=== PATIENT | male | born 1930 | race Caucasian/White ===

== ENCOUNTER 2017-02-12 20:38 | Inpatient (IN) | payer MEDICARE, OTHER ==
[~2017-02-12] VITALS: Ht 182.9 cm; Wt 108.2 kg
[~2017-02-12 20:38] MED LIST: ASPI-147 PO; BUDE1SUS9 EACH NARE; CETI10 PO; CITA10TA4 PO; FINA5TAB2 PO; METO50TA PO; OMEP40CA2 PO; TAMS0.4C4 PO; VITA100018 PO; VITACAP9 PO; VYTO10TA9 PO
[2017-02-12 20:48] VITALS: BP 164/72; PULSE 92; RESP 16; TEMP 99.1; O2SAT 90
--- NOTE | 2017-02-12 21:04 | PD ---
HPI Chief Complaint: Fall Time Seen by Provider: 20:56 Travel History International Travel<30 days: No Contact w/Intl Traveler<30days: No Traveled to known affect area: No History of Present Illness HPI 86-year-old male presents to the emergency department by EMS transport from [facility] emergency department in transfer of care for neurosurgical admission due to subarachnoid hemorrhage. Patient is able to report his own history he states that he was walking in from outside after being in the swimming pool with bare feet were wet and when he stepped onto the tile floor inside his home he slipped backwards hitting the back of his head on the floor. Patient denies having any loss of consciousness. Patient was stated he was immediately stunned however. Patient did have an episode of vomiting after the fall. Patient also had additional episodes of emesis en route to the hospital. Patient was identified by CT brain noncontrast reading per Dr. eden lobe subarachnoid hemorrhage. The patient's case was discussed with neurosurgery on- call by managing physician Dr. gonzalez and patient was placed on nicardipine. Patient reports that he does take enteric-coated aspirin daily. PFSH Past Medical History Narrative Medical Hypertension dyslipidemia CAD with stent appendectomy tonsillectomy; alcohol use ; nursing notes reviewed Hx Anticoagulant Therapy: Yes Depression: Yes Cardiovascular Problems: Yes (HTN; STENT) High Cholesterol: Yes Diminished Hearing: No GERD: Yes Hypertension: Yes Past Surgical History Appendectomy: Yes Coronary Stent: Yes Tonsillectomy: Yes Social History Alcohol Use: Yes (SOCIALLY) Tobacco Use: No (FORMER) Substance Use: No Allergies-Medications (Allergen,Severity, Reaction): Coded Allergies: Codeine (Verified Adverse Reaction, Intermediate, NAUSEA AND VOMITING, ) Reported Meds & Prescriptions Reported Meds & Active Scripts Active Reported Finasteride 5 Mg Tab 5 Mg PO DAILY Do not crush. Tamsulosin (Tamsulosin HCl) 0.4 Mg Cap 0.4 Mg PO DAILY Vitamin B Complex-C (B Complex W/ C) 1 Cap Cap 1 Cap PO DAILY Rhinocort Allergy Nasal [place] (Budesonide Nasal [place]) 32 Mcg/Act Susp 2 [place] EACH NARE DAILY Vitamin D3 (Cholecalciferol) 1,000 Unit Tab 1,000 Units PO DAILY Citalopram (Citalopram Hydrobromide) 10 Mg Tab 10 Mg PO HS Omeprazole 40 Mg Cap 40 Mg PO DAILY Vytorin (Ezetimibe-Simvastatin) 10-40 Mg Tab 1 Tab PO HS Ecotrin Low Strength (Aspirin) 81 Mg Tabdr 81 Mg PO DAILY Cetirizine (Cetirizine HCl) 10 Mg Tab 10 Mg PO DAILY Metoprolol Tartrate 50 Mg Tab 50 Mg PO DAILY Review of Systems Except as stated in HPI: all other systems reviewed are Neg Physical Exam Narrative GENERAL: Well-developed well-nourished male in no acute distress no respiratory distress; GCS 15 SKIN: Warm and dry. HEAD: Atraumatic. Normocephalic except for small area right posterior occiput soft tissue swelling tender to palpation. EYES: Pupils equal and round. No scleral icterus. No injection or drainage. ENT: No nasal bleeding or discharge. Mucous membranes pink and moist. NECK: Trachea midline. No JVD. No midline tenderness to direct palpation along the cervical spine CARDIOVASCULAR: Regular rate and rhythm. RESPIRATORY: No accessory muscle use. Clear to auscultation. Breath sounds equal bilaterally. GASTROINTESTINAL: Abdomen soft, non-tender, nondistended. Hepatic and splenic margins not palpable. MUSCULOSKELETAL: Extremities without clubbing, cyanosis, or edema. No obvious deformities. NEUROLOGICAL: Awake and alert. No obvious cranial nerve deficits. Motor grossly within normal limits. Five out of 5 muscle strength in the arms and legs. Normal speech. PSYCHIATRIC: Appropriate mood and affect; insight and judgment normal. Data Data Last Documented VS Vital Signs Date Time Temp Pulse Resp B/P Pulse Ox O2 Delivery O2 Flow Rate FiO2 02/12/17 21:39 92 16 155/70 93 Nasal Cannula 2 02/12/17 20:48 99.1 Orders Admit Order (Ed Use Only) (02/12/17 ) ^ Saline Lock (02/12/17 21:09) Resp Oxygen Brad C Titrat 1-4 L (02/12/17 ) Notify Dr: Other (02/12/17 21:09) Sodium Chloride 0.9% Flush (Ns Flush) (02/13/17 09:00) Sodium Chloride 0.9% Flush (Ns Flush) (02/12/17 21:15) Consult Neurosurgery (02/12/17 ) Ct Brain W/O Iv Contrast(Rout) (02/12/17 ) Cta Brain W Iv Contrast W 3d (02/12/17 ) (Hub Use Only)Inp Phy Cons/Ref (02/12/17 ) Morphine Inj (Morphine Inj) (02/12/17 21:45) MDM Medical Decision Making Medical Screen Exam Complete: Yes Emergency Medical Condition: Yes Medical Record Reviewed: Yes Differential Diagnosis Patient accepted in transfer of care from [facility] with CT imaging consistent with subarachnoid hemorrhage on nicardipine infusion Narrative Course Patient accepted in transfer of care from [facility] with CT imaging consistent with subarachnoid hemorrhage on nicardipine infusion; patient's case has been discussed with on-call neurosurgeon Dr. Mares who will see patient in the emergency department Dr. Mares has seen patient in the emergency department requests CT brain noncontrast repeated as well as CT angiogram of the brain Patient's case discussed with on-call coding manager Dr. Sparrow who will accept patient for admission with consult to neurosurgery Physician Communication Physician Communication NS, Dr Mares aware patient has arrived to the ED ans will see in the ED--admit to ICU to coding manager; discussed with Dr Ca --will admit to his service Diagnosis Primary Impression: Subarachnoid bleed Admitting Information Admitting Physician Requests: Admit Concepción Alcaraz MD Feb 12, 2017 21:04
[2017-02-12] MEDS ORDERED: SODIUM CHLORIDE 0.9% FLUSH 10 ML FLUSH IVF PRN (21:15)
[2017-02-12 21:39] VITALS: BP 155/70; PULSE 92; RESP 16; O2SAT 93
[2017-02-12] MEDS ORDERED: MORPHINE SULFATE 4 MG/ML INJ IV PUSH ONE (21:45)
[2017-02-12] MEDS ORDERED: ONDANSETRON HCL 4 MG/2 ML VIAL ONE (22:09)
[2017-02-12] MEDS ORDERED: IOHEXOL 350 MG/ML 10 ML VIAL (for RAD DIAG) IV ONE (22:13)
--- NOTE | 2017-02-12 22:14 | PD.CONS ---
REASON FOR CONSULTATION: Subarachnoid Hemorrhage HISTORY OF PRESENT ILLNESS: 86 year old transferred from [place] after HCT showed subarachnoid hemorrhage within the perimesencephalic cisterns. No evidence of hydrocephalus. Patient slipped and fell backwards over wet floor hitting the back of his head. + Headaches. No LOS and no weakness. +emesis. PAST MEDICAL HISTORY: hypertension, CAD, HTN, hyperlipidemia PAST SURGICAL HISTORY: no intracranial surgeries. History of lumbar laminectomy. PAST SOCIAL HISTORY: former smoking, ocassional ETOH use FAMILY HISTORY: no intracranial or spinal conditions ALLERGIES: Codeine MEDICATIONS: Please review EMR. Significant for ASA. REVIEW OF SYSTEMS: Constitutional: no fever or fatigue. In general good health. Eyes: no infection, blurred or double vision. Cardiovascular: no chest pain or palpitations. Gastrointestinal: no nausea, vomiting or diarrhea. Genitourinary: no incontinence or painful urination. Neurological: look at HPI Hematologic: no anemia or easy bruising Musculoskeletal: look at HPI Endocrine: no unexplained changes in weight Integumentary: not known skin lesions PHYSICAL EXAMINATION: VITALS SIGNS: Vital Signs Date Time Temp Pulse Resp B/P Pulse Ox O2 Delivery O2 Flow Rate FiO2 02/12/17 21:39 92 16 155/70 93 Nasal Cannula 2 02/12/17 20:48 99.1 HEENT: Normocephalic/atraumatic. No facial dysmorphic features are present. Eyes, ears, nose and throat are normal and mucous membranes are moist. SKIN: devoid of any neurocutaneous disorders. CV: heart is in regular rate and rhythm without murmur. ABD: benign, soft, flat, and without hepatosplenomegaly or tenderness. EXTREM: warm and without edema, clubbing, or cyanosis. NEUROLOGICAL EXAMINATION: MENTAL STATUS: The patient is awake, alert and fully oriented with normal speech and language. CRANIAL NERVES: Pupils are equal, round, and reactive to light accommodation. Visual minor are full. No vertical or horizontal nyastagmus is noted and visual pursuits were smooth. Gaze is conjugate and extraocular movements are full and without limitation. Face symmetric, tongue midline. Shoulder shrug and sternocleidomastiod strength symmetric and strong. MOTOR: Muscle strength : Strength reported on scale of 1-5, 5 being full strength. R/L = Right/Left. UPPER EXTREMITY: Deltoid R5/L5, Biceps R5/L5, Triceps R5/L5, Wrist extensors R5/L5, Hand instrinsics R5/L5 . LOWER EXTREMITY: Iliopsoas R5/L5, Quadriceps R5/L5, Tib anterior R5/L5, EHL R5/L5, Gastrocnemius R5/L5 SENSORY: unremarkable to light touch and pinprick throughout. REFLEXES: 2+ and symmetric bilaterally. No hyperreflexia or pathological reflexes noted. GAIT: not tested ASSESSMENT: s/p fall resulting in head trauma and perimesencephalic subarachnoid hemorrhage. Posadas grade III. Bianchi Hair grade 1. Neurologically intact. Although there is clear history of trauma there is significant basal cisterns subarachnoid hemorrhage and it is important to rule out an aneurysm/ vascular malformation.. RECOMMENDATIONS: Repeat head CT and add CTA to rule out aneurysm/vascular malformation Admission to ICU for neurochecks every hour. Watch for secondary hydrocephalus and potential vasospasm No neurosurgical intervention required at this time. Strict control of blood pressure. Keep MAP <130mm Hg. Thank you for allowing me to participate in the care of your patient. If I can be of future assistance or should you have any questions about this or any other patient, please do not hesitate to contact me. Ariel Mares M.D. Neurosurgeon Ariel Bell MD Feb 12, 2017 22:14
[2017-02-12] MEDS ORDERED: RESP: ALBUTEROL 2.5 MG/IPRATROPIUM 0.5 MG NEB (PRN) INH (22:15)
[2017-02-12] MEDS ORDERED: MORPHINE SULFATE 4 MG/ML INJ IV PRN (22:15)
[2017-02-12] MEDS ORDERED: MISCELLANEOUS NURSING INFORMATION XX SCH (22:15)
[2017-02-12] MEDS ORDERED: ONDANSETRON HCL 4 MG/2 ML VIAL IV PUSH ONE (22:15)
[2017-02-12] MEDS ORDERED: CHLORHEXIDINE GLUCONATE 2 % 1 PACK (2 CLOTHS) TOP PRN (22:15)
[2017-02-12] MEDS ORDERED: PILL SPLITTER OTHER PRN (22:15)
--- NOTE | 2017-02-12 22:19 | RADRPT ---
EXAM DATE/TIME: 02/12/2017 21:51 [facility] COMPARISON: No previous studies available for comparison. INDICATIONS : Patient fell and hit head tonight. No chest complaints. MEDICAL HISTORY : Hypertension. SURGICAL HISTORY : Cardiac stent. ENCOUNTER: Initial ACUITY: 1 day PAIN SCORE: 0/10 LOCATION: chest FINDINGS: The lungs are clear without infiltrate, nodule, or mass. There is no appreciable pleural effusion fo r technique. Heart and mediastinum are unremarkable. CONCLUSION: No acute cardiopulmonary disease. Apolinar Paniagua MD on February 12, 2017 at 22:16 Board Certified Radiologist. This report was verified electronically.
--- NOTE | 2017-02-12 22:20 | HHI.HP ---
HPI Service Critical Care Medicine Primary Care Physician Non-Staff Admission Diagnosis Traumatic SAH Diagnosis: Chief Complaint: Fall, headache. Travel History International Travel<30 Days: No Contact w/Intl Traveler <30 Da: No Traveled to Known Affected Are: No History of Present Illness 86 y/o man slipped by his pool and fell, hitting his head. To [facility] ED where CT revealed traumatic SAH. No LOC but felt stunned briefly. Review of Systems ROS Headache. Past Family Social History Allergies: Coded Allergies: Codeine (Verified Adverse Reaction, Intermediate, NAUSEA AND VOMITING, ) Past Medical History Past Medical History Narrative Medical Hypertension dyslipidemia CAD with stent appendectomy tonsillectomy; alcohol use ; nursing notes reviewed Hx Anticoagulant Therapy: Yes Depression: Yes Cardiovascular Problems: Yes (HTN; STENT) High Cholesterol: Yes Diminished Hearing: No GERD: Yes Hypertension: Yes Past Surgical History Appendectomy: Yes Coronary Stent: Yes Tonsillectomy: Yes Social History Alcohol Use: Yes (SOCIALLY) Tobacco Use: No (FORMER) Substance Use: No Allergies-Medications Allergies-Medications (Allergen,Severity, Reaction): Coded Allergies: Codeine (Verified Adverse Reaction, Intermediate, NAUSEA AND VOMITING, ) Reported Meds & Prescriptions Reported Meds & Active Scripts Active Reported Finasteride 5 Mg Tab 5 Mg PO DAILY Do not crush. Tamsulosin (Tamsulosin HCl) 0.4 Mg Cap 0.4 Mg PO DAILY Vitamin B Complex-C (B Complex W/ C) 1 Cap Cap 1 Cap PO DAILY Rhinocort Allergy Nasal [place] (Budesonide Nasal [place]) 32 Mcg/Act Susp 2 [place] EACH NARE DAILY Vitamin D3 (Cholecalciferol) 1,000 Unit Tab 1,000 Units PO DAILY Citalopram (Citalopram Hydrobromide) 10 Mg Tab 10 Mg PO HS Omeprazole 40 Mg Cap 40 Mg PO DAILY Vytorin (Ezetimibe-Simvastatin) 10-40 Mg Tab 1 Tab PO HS Ecotrin Low Strength (Aspirin) 81 Mg Tabdr 81 Mg PO DAILY Cetirizine (Cetirizine HCl) 10 Mg Tab 10 Mg PO DAILY Metoprolol Tartrate 50 Mg Tab 50 Mg PO DAILY Physical Exam Vital Signs Vital Signs Date Time Temp Pulse Resp B/P Pulse Ox O2 Delivery O2 Flow Rate FiO2 02/12/17 21:39 92 16 155/70 93 Nasal Cannula 2 02/12/17 20:48 99.1 92 16 164/72 90 Physical Exam Gen: Conversant. Head: Large hematoma right occiput. Neck: Supple, airway widely patent. Lungs: Clear, no wheezes or crackles. Comfortable respiratory pattern. Heart: NL S1S2, no m,r. No JVD. RRR. Abdomen: Soft, ND, NT, no guarding. BS active. Extremities: Warm, well perfused. Neuro: O X 3, alert, cooperative, conversant. Speech clear. Moves 4 limbs to command. RUBÉN, EOMS intact, tongur protrusion, shoulder shrug, smile, grimace symmetrical. Assessment and Plan Assessment and Plan Assessment: 1. Traumatic Subarachnoid blood after fall. 2. Hypertension. 3. CAD, s/p stent. Plan: 1. Neuro checks hourly. 2. Check mag, phos , K. 3. NC O2. 4. Check coags. 5. Admit ISC. 6. Neuro consult -> done. 7. Continue minimal antiplatelet therapy with ASA. Overall impression: This man is neurologically stable s/p fall and significant head trauma. He requires close observation and frequent neuro checks. Yuriy Ca MD Feb 12, 2017 22:20
--- NOTE | 2017-02-12 22:21 | RADRPT ---
EXAM DATE/TIME: 02/12/2017 22:11 [facility] COMPARISON: CT BRAIN W/O CONTRAST, February 12, 2017, 18:13. INDICATIONS : Subarachnoid hemorrhage. RADIATION DOSE: 44.26 CTDIvol (mGy) MEDICAL HISTORY : Hypertension. Cardiovascular disease SURGICAL HISTORY : Tonsillectomy. ENCOUNTER: Subsequent ACUITY: 1 day PAIN SCALE: 8/10 LOCATION: cranial TECHNIQUE: Multiple contiguous axial images were obtained of the head. Using automated exposure control and adj ustment of the mA and/or kV according to patient size, radiation dose was kept as low as reasonably a chievable to obtain optimal diagnostic quality images. FINDINGS: There is no change in subarachnoid hemorrhage since the prior examination. No extra-axial fluid collections or mass effect is identified. CONCLUSION: Stable subarachnoid hemorrhage. Apolinar Paniagua MD on February 12, 2017 at 22:18 Board Certified Radiologist. This report was verified electronically.
[2017-02-12 22:29] VITALS: O2SAT 93
--- NOTE | 2017-02-12 22:35 | RADRPT ---
EXAM DATE/TIME: 02/12/2017 22:11 [facility] COMPARISON: CT BRAIN W/O CONTRAST, February 12, 2017, 22:11. INDICATIONS : Subarachnoid hemorrhage. IV CONTRAST: 80 cc Omnipaque 350 (iohexol) IV RADIATION DOSE: 46.22 CTDIvol (mGy) MEDICAL HISTORY : Hypertension. Cardiovascular disease SURGICAL HISTORY : Tonsillectomy. ENCOUNTER: Subsequent ACUITY: 1 day PAIN SCALE: 8/10 LOCATION: cranial TECHNIQUE: Volumetric scanning was performed using a multi-row detector CT scanner. The data was post processed with a variety of visualization algorithms including full volume maximum intensity projection, multi -planar sliding thin slab reformation, curved planar reformation, and surface rendering techniques. Using automated exposure control and adjustment of the mA and/or kV according to patient size, radiat ion dose was kept as low as reasonably achievable to obtain optimal diagnostic quality images. FINDINGS: There is excellent visualization of the major intracranial arteries out to the second-order branch ve ssels. There is no evidence for aneurysm, vessel truncation or stenosis, and no evidence for vascula r malformation. CONCLUSION: Unremarkable study and the cause of the patient's subarachnoid hemorrhage is not identified. Apolinar Paniagua MD on February 12, 2017 at 22:30 Board Certified Radiologist. This report was verified electronically.
[2017-02-12] MEDS: SODIUM CHLOR 0.9% 1000 ML INJ 1,000 ML IV SCH (22:40)
[2017-02-12] MEDS: niCARdipine INJ 25 MG in SODIUM CHLOR 0.9% 250 ML INJ 250 ML IV SCH (22:40)
[2017-02-12 22:41] VITALS: BP 170/72; PULSE 86; RESP 16; O2SAT 94
[2017-02-12 23:07] VITALS: BP 167/72; PULSE 87; RESP 18; O2SAT 98
[2017-02-13] VITALS (20 sets, daily range): BP systolic 119–149; BP diastolic 50–83; PULSE 60–88; RESP 11–33; TEMP 98.2–99.1; O2SAT 93–99
[2017-02-13] MEDS: niCARdipine INJ 25 MG in SODIUM CHLOR 0.9% 250 ML INJ 250 ML IV SCH ×3 (03:57→19:01)
[2017-02-13 04:54] LABS: BICARBONATE 27.4 MEQ/L (21.0-32.0); MAGNESIUM 2.2 MG/DL (1.5-2.5)
[2017-02-13] MEDS: CHLORHEXIDINE GLUCONATE 2 % 1 PACK (2 CLOTHS) TOP SCH (07:00)
[2017-02-13] MEDS ORDERED: ASPIRIN EC 81 MG TABEC PO SCH (09:00)
[2017-02-13] MEDS: PANTOPRAZOLE SOD 40 MG DELAYED RELEASE TAB PO SCH ×2 (09:00→10:06)
[2017-02-13] MEDS: TAMSULOSIN HCL 0.4 MG CAP PO SCH (09:59)
[2017-02-13] MEDS: ACETAMINOPHEN 325 MG TAB PO PRN ×3 (09:59→21:51)
[2017-02-13] MEDS: DOCUSATE SODIUM 100 MG CAP PO SCH ×2 (09:59→20:56)
[2017-02-13] MEDS: CETIRIZINE HCL 10 MG TAB PO SCH (10:00)
[2017-02-13] MEDS: METOPROLOL TARTRATE 50 MG TAB PO SCH (10:00)
[2017-02-13] MEDS: SODIUM CHLOR 0.9% 1000 ML INJ 1,000 ML IV SCH ×2 (10:00→20:56)
[2017-02-13] MEDS: SODIUM CHLORIDE 0.9% FLUSH 10 ML FLUSH IV FLUSH SCH ×2 (10:01→20:56)
--- NOTE | 2017-02-13 13:09 | HHI.CCPN ---
Subjective Remarks/Hospital Course 86 y/o man slipped by his pool and fell, hitting his head. To [place] ED where CT revealed traumatic SAH. No LOC but felt stunned briefly. SUBJ 02/13/17: CT head stable. CTA no aneurysm. No focal deficits on neuro exam. Objective Vital Signs Date Time Temp Pulse Resp B/P Pulse Ox O2 Delivery O2 Flow Rate FiO2 02/13/17 04:00 97 Nasal Cannula 2.50 02/13/17 04:00 98.3 88 16 140/63 Result Diagram: 02/13/17 0419 Objective Remarks Gen: Alert awake Head: Large hematoma right occiput. Neck: Supple, airway widely patent. Lungs: Clear, no wheezes or crackles. Air entry bilaterally Heart: NL S1S2, no m,r. No JVD. RRR. Abdomen: Soft, ND, NT, no guarding. BS active. Extremities: Warm, well perfused. Neuro: AO X 3, alert, cooperative. Speech clear. Moves 4 limbs to command. Normal motor strength x4 A/P Assessment and Plan Assessment: Traumatic Subarachnoid blood after fall. Hypertension. CAD s/p stent. Plan: NEURO: Traumatic subarachnoid hemorrhage -Continue neuro checks per protocol -CT angiogram did not show any aneurysm. CT head today stable hemorrhage -Large amount of subarachnoid blood increase his risk of vasospasm -Monitor closely for vasospasm keep magnesium above 2 RESP: -Nasal cannula oxygen -Aggressive pulmonary toilet CV: History of hypertension History of coronary artery disease -Normal saline IV fluids 75 ml per hour -Aspirin held per N/S request -Target systolic blood pressure less than 140 -Use Cardene infusion as needed GI: -Heart healthy diet. IV Protonix : -Monitor renal function closely. Dodd catheter. ID: -Monitor for infection HEME: -Monitor CBC, CMP, coags ENDO: -Electrolyte replacement protocol PROPH: -Bilateral lower extremity SCDs, CARLOS A hose. IV Protonix LINES: -Utilize peripheral IVs, central line if needed Overall impression: This man is neurologically stable s/p fall and significant head trauma. He requires close observation and frequent neuro checks. Level 2 Kavya Hays MD Feb 13, 2017 13:09
--- NOTE | 2017-02-13 14:03 | RADRPT ---
EXAM DATE/TIME: 02/13/2017 13:12 [facility] COMPARISON: CT BRAIN W/O CONTRAST, February 12, 2017, 22:11. INDICATIONS : Follow-up subarachnoid hemorrhage. RADIATION DOSE: 49.18 CTDIvol (mGy) MEDICAL HISTORY : Hypertension. Cardiovascular disease SURGICAL HISTORY : Tonsillectomy. ENCOUNTER: Subsequent ACUITY: 1 day PAIN SCALE: 0/10 LOCATION: cranial TECHNIQUE: Multiple contiguous axial images were obtained of the head. Using automated exposure control and adj ustment of the mA and/or kV according to patient size, radiation dose was kept as low as reasonably a chievable to obtain optimal diagnostic quality images. FINDINGS: Subarachnoid hemorrhage about the [place] again seen. No significant interval change. No paxton dence of mass effect or midline shift. No extra-axial fluid collection. CONCLUSION: No significant interval change. Central subarachnoid hemorrhage again seen. Mirza Viera MD on February 13, 2017 at 14:00 Board Certified Radiologist. This report was verified electronically.
[2017-02-13] MEDS ORDERED: MAGNESIUM SULFATE INJ 4 GM in SODIUM CHLORIDE 0.9% INJ 92 ML IV PRN (14:15)
[2017-02-13] MEDS ORDERED: POTASSIUM CHLORIDE 25 MEQ EFFERVESCENT TAB PO PRN (14:15)
[2017-02-13] MEDS ORDERED: MAGNESIUM SULFATE INJ 2 GM in SODIUM CHLORIDE 0.9% INJ 96 ML IV PRN (14:15)
[2017-02-13] MEDS ORDERED: POTASSIUM PHOSPHATE MONOBASIC 500 MG TAB PO/TUBE PRN (14:15)
[2017-02-13] MEDS ORDERED: MAGNESIUM OXIDE 400 MG TAB PO PRN (14:15)
[2017-02-13] MEDS ORDERED: SODIUM PHOSPHATE INJ 30 MMOL in SODIUM CHLOR 0.9% 250 ML INJ 240 ML IV PRN (14:15)
[2017-02-13] MEDS ORDERED: POTASSIUM CHLOR 20 MEQ PREMIX 100 ML IV PRN ×2 (14:15)
[2017-02-13] MEDS ORDERED: POTASSIUM CHLOR 40 MEQ PREMIX 100 ML IV PRN ×2 (14:15)
[2017-02-13] MEDS ORDERED: POTASSIUM PHOSPHATE MONOBASIC 500 MG TAB PO PRN (14:15)
[2017-02-13] MEDS: ONDANSETRON HCL 4 MG/2 ML VIAL IV PRN (15:26)
--- NOTE | 2017-02-13 15:42 | HHI.NSPN ---
Note Status Status: Progress Note Interval History Interval History 86 year old transferred from [place] after HCT showed subarachnoid hemorrhage within the perimesencephalic cisterns. No evidence of hydrocephalus. Patient slipped and fell backwards over wet floor hitting the back of his head. + Headaches. No LOS and no weakness. +emesis. 02/13 CT angiogram did not revealed any aneurysms or by vascular malformation. Neurologically stable. Labs, Micro, & Vital Signs Results Date Time Temp Pulse Resp B/P Pulse Ox O2 Delivery O2 Flow Rate FiO2 02/13/17 04:00 97 Nasal Cannula 2.50 02/13/17 04:00 98.3 88 16 140/63 95 02/13/17 04:00 88 02/13/17 02:59 84 16 146/67 94 Nasal Cannula 2 02/13/17 02:05 84 20 146/67 95 Nasal Cannula 2 02/13/17 01:28 84 16 147/65 94 Nasal Cannula 2 02/13/17 00:06 84 16 149/65 93 Nasal Cannula 2 02/12/17 23:07 87 18 167/72 98 Nasal Cannula 4 02/12/17 22:41 86 16 170/72 94 Nasal Cannula 2 02/12/17 22:29 93 Nasal Cannula 2.00 02/12/17 21:39 92 16 155/70 93 Nasal Cannula 2 02/12/17 20:48 99.1 92 16 164/72 90 02/13/17 07:00 Intake Total 810 ml Output Total 175 ml Balance 635 ml Constitutional Vital Signs Date Time Temp Pulse Resp B/P Pulse Ox O2 Delivery O2 Flow Rate FiO2 02/13/17 04:00 97 Nasal Cannula 2.50 02/13/17 04:00 98.3 88 16 140/63 95 02/13/17 04:00 88 02/13/17 02:59 84 16 146/67 94 Nasal Cannula 2 02/13/17 02:05 84 20 146/67 95 Nasal Cannula 2 02/13/17 01:28 84 16 147/65 94 Nasal Cannula 2 02/13/17 00:06 84 16 149/65 93 Nasal Cannula 2 02/12/17 23:07 87 18 167/72 98 Nasal Cannula 4 02/12/17 22:41 86 16 170/72 94 Nasal Cannula 2 02/12/17 22:29 93 Nasal Cannula 2.00 02/12/17 21:39 92 16 155/70 93 Nasal Cannula 2 02/12/17 20:48 99.1 92 16 164/72 90 02/13/17 07:00 Intake Total 810 ml Output Total 175 ml Balance 635 ml Review of Systems/Exam Exam Awake, alert and oriented 3 Pupils are equal and reactive Follows commands appropriately Full strength in bilateral upper and lower extremities Medications Current Medications Current Medications Sodium Chloride (NS Flush) 2 ml BID IV FLUSH Last administered on 02/13/17 10: 01; Start 02/13/17 at 09:00 Sodium Chloride (NS Flush) 2 ml UNSCH PRN IVF FLUSH AFTER USING IV ACCESS; Start 02/12/17 at 21:15 Morphine Sulfate (Morphine Inj) 2 mg ONCE ONCE IV PUSH Last administered on 22:01; Start 02/12/17 at 21:45; Stop 02/12/17 at 21:46; Status DC Aspirin (Ecotrin Ec) 81 mg DAILY PO Last administered on 02/13/17 09:59; Start 02/13/17 at 09:00; Stop 02/13/17 at 13:13; Status DC Cetirizine HCl (ZyrTEC) 10 mg DAILY PO Last administered on 02/13/17 10:00; Start 02/13/17 at 09:00 Citalopram Hydrobromide (CeleXA) 10 mg HS PO ; Start 02/13/17 at 21:00 Metoprolol Tartrate (Lopressor) 50 mg DAILY PO Last administered on 02/13/17 10:00; Start 02/13/17 at 09:00 Tamsulosin HCl (Flomax) 0.4 mg DAILY PO Last administered on 02/13/17 09:59; Start 02/13/17 at 09:00 Pantoprazole Sodium (Protonix) 40 mg DAILY PO Last administered on 02/13/17 10 :06; Start 02/13/17 at 09:00 Miscellaneous (Pill Splitter) 1 ea UNSCH PRN OTHER SEE LABEL COMMENTS; Start at 22:15 Ondansetron HCl (Zofran Inj) 4 mg ONCE ONCE IV PUSH Last administered on 22:22; Start 02/12/17 at 22:15; Stop 02/12/17 at 22:16; Status DC Ondansetron HCl (Zofran Inj) 4 mg STK-MED ONCE .ROUTE ; Start 02/12/17 at 22:09 ; Stop 02/12/17 at 22:10; Status DC Iohexol 80 ml 80 ml STK-MED ONCE IV Last administered on 02/12/17 22:13; Start 02/12/17 at 22:13; Stop 02/12/17 at 22:14; Status DC Sodium Chloride (NS 1000 ml Inj) 1,000 ml @ 84 mls/hr [id number] IV Last administered on 02/13/17 10:00; Start 02/12/17 at 22:05 Acetaminophen (Tylenol) 650 mg Q6H PRN PO PAIN 1-10 AND/OR FEVER >101F Last administered on 02/13/17 15:25; Start 02/12/17 at 22:15 Morphine Sulfate (Morphine Inj) 2 mg Q2H PRN IV PAIN SCALE 6 TO 10; Start 02/12 at 22:15 Pantoprazole Sodium (Protonix) 40 mg DAILY PO ; Start 02/13/17 at 09:00 Ondansetron HCl (Zofran Inj) 4 mg Q6H PRN IV NAUSEA OR VOMITING Last administered on 02/13/17 15:26; Start 02/12/17 at 22:15 Docusate Sodium (Colace) 100 mg BID PO Last administered on 02/13/17 09:59; Start 02/13/17 at 09:00 Sennosides (Senokot) 17.2 mg Q12H PRN PO CONSTIPATION; Start 02/12/17 at 22:15 Albuterol/ Ipratropium (Duoneb Neb) 1 ampule Q4HR NEB PRN INH WHEEZING; Start 02/12/17 at 22:15 Miscellaneous Information 1 Q361D XX ; Start 02/12/17 at 22:15 Chlorhexidine Gluconate (Chlorhexidine 2% Cloth) 3 pack Taper DAILY@04 TOP Last administered on 02/13/17 07:00; Start 02/13/17 at 04:00; Stop 02/09/18 at 03:59 Chlorhexidine Gluconate 3 pack 3 pack UNSCH PRN TOP HYGIENIC CARE; Start at 22:15 Nicardipine HCl 25 mg/Sodium Chloride 260 ml @ 0 mls/hr TITRATE IV Last administered on 02/13/17t 11:48; Start 02/12/17 at 22:45 Potassium Chloride 100 ml @ 50 mls/hr Q2H PRN IV For Potassium 2.8 - 3.2 mEq/L ; Start 02/13/17 at 14:15 Potassium Chloride (KCl 20 Meq Premix Inj) 100 ml @ 50 mls/hr Q2H PRN IV For Potassium 2.8 - 3.2 mEq/L; Start 02/13/17 at 14:15 Potassium Bicarb/ Potassium Chloride 50 meq 50 meq UNSCH PRN PO For Potassium 3.3 - 3.5 mEq/L; Start 02/13/17 at 14:15 Potassium Chloride 100 ml @ 25 mls/hr UNSCH PRN IV For Potassium 3.3 - 3.5 mEq /L; Start 02/13/17 at 14:15 Potassium Chloride 100 ml @ 50 mls/hr Q2H PRN IV For Potassium 3.3 - 3.5 mEq/L ; Start 02/13/17 at 14:15 Magnesium Sulfate/ Sodium Chloride (Magnesium Sulfate Inj/NS Inj) 100 ml @ 50 mls/hr UNSCH PRN IV For Magnesium 0.9 - 1.1 mg/dL; Start 02/13/17 at 14:15 Magnesium Oxide 800 mg 800 mg UNSCH PRN PO For Magnesium 1.2 - 1.6 mg/dL; Start 02/13/17 at 14:15 Magnesium Sulfate/ Sodium Chloride (Magnesium Sulfate Inj/NS Inj) 100 ml @ 50 mls/hr UNSCH PRN IV For Magnesium 1.2 - 1.6 mg/dL; Start 02/13/17 at 14:15 Potassium Phosphate 2000 mg 2,000 mg Q4H PRN PO For Phosphorus < 2.5 mg/dL; Start 02/13/17 at 14:15 Sodium Phosphate/ Sodium Chloride (Sodium Phosphate Inj/NS 250 ml Inj) 250 ml @ 42 mls/hr UNSCH PRN IV For Phosphorus < 2.5 mg/dL; Start 02/13/17 at 14:15 Potassium Phosphate (K-Phos) 2,000 mg UNSCH PRN PO/TUBE SEE LABEL COMMENTS; Start 02/13/17 at 14:15 Medical Decision Making MDM Remarks Traumatic subarachnoid hemorrhage. Neurologically intact. Risks for hydrocephalus and vasospasm Plan Plan Remarks Repeat head CT on February 14 for follow-up Neuro checks every hour No neurosurgical intervention indicated at this time. Ariel Bell MD Feb 13, 2017 15:42
[2017-02-13] MEDS: CITALOPRAM HYDROBROMIDE 20 MG TAB PO SCH (20:55)
--- NOTE | 2017-02-13 22:28 | EKG ---
Date Performed: 02/12/2017 Time Performed: 21:58:44 PTAGE: 86 years EKG: Sinus rhythm WITH FIRST DEGREE AV BLOCK ABNORMAL R WAVE PROGrESSION ABNORMAL ECG NO PREVIOUS TRACING DOCTOR: Merline Sohok Interpretating Date/Time 02/13/2017 22:28:11
[2017-02-13 22:29] LABS: MAGNESIUM 2.2 MG/DL (1.5-2.5)
[2017-02-14] VITALS (14 sets, daily range): BP systolic 97–158; BP diastolic 46–70; PULSE 66–98; RESP 16–20; TEMP 97.7–99.1; O2SAT 96–99
[2017-02-14] MEDS: CHLORHEXIDINE GLUCONATE 2 % 1 PACK (2 CLOTHS) TOP SCH (04:00)
[2017-02-14 04:29] LABS: AUTOMATED NEUTROPHIL # 4.9 TH/MM3 (1.8-7.7); BASOPHIL # 0.1 TH/MM3 (0-0.2); EOSINOPHIL # 0.4 TH/MM3 (0-0.4); EOSINOPHIL % 5.4 % (0.0-4.0); HEMATOCRIT 37.3 % (39.0-51.0); HEMO FLAGS DIFF FINAL; LYMPH % 21.7 % (9.0-44.0); LYMPHOCYTE # 1.7 TH/MM3 (1.0-4.8); MEAN CELL VOLUME 86.6 FL (80.0-100.0); MEAN CORPUSCULAR HEMOGLOBIN 28.4 PG (27.0-34.0); MEAN CORPUSCULAR HGB CONC 32.8 % (32.0-36.0); MONO % 8.6 % (0.0-8.0); NEUT % 63.3 % (16.0-70.0); PLATELET COUNT 202 TH/MM3 (150-450); RED CELL DISTRIBUTION WIDTH 14.1 % (11.6-17.2); WHITE BLOOD COUNT 7.7 TH/MM3 (4.0-11.0)
[2017-02-14 05:05] LABS: ALKALINE PHOSPHATASE 74 U/L (45-117); ALT (GPT) 15 U/L (12-78); ANION GAP 6 MEQ/L (5-15); AST (GOT) 18 U/L (15-37); BICARBONATE 29.6 MEQ/L (21.0-32.0); BLOOD UREA NITROGEN 14 MG/DL (7-18); CHLORIDE 104 MEQ/L (98-107); GLOMERULAR FILTRATION RATE 85 ML/MIN (>89); MAGNESIUM 2.1 MG/DL (1.5-2.5); POTASSIUM 3.7 MEQ/L (3.5-5.1); SODIUM (NA) 140 MEQ/L (136-145); TOTAL BILIRUBIN ADULT 0.6 MG/DL (0.2-1.0)
[2017-02-14] MEDS: niCARdipine INJ 25 MG in SODIUM CHLOR 0.9% 250 ML INJ 250 ML IV SCH ×2 (06:15→17:24)
--- NOTE | 2017-02-14 06:44 | RADRPT ---
EXAM DATE/TIME: 02/14/2017 05:52 [facility] COMPARISON: CTA BRAIN W 3D RECON, February 12, 2017, 22:11. CT BRAIN W/O CONTRAST, February 13, 2017, 13:12. INDICATIONS : Follow-up subarachnoid hemorrhage. RADIATION DOSE: 69.15 CTDIvol (mGy) MEDICAL HISTORY : Cardiovascular disease. Hypertension. SURGICAL HISTORY : Tonsillectomy. ENCOUNTER: Subsequent ACUITY: 2 days PAIN SCALE: 0/10 LOCATION: cranial TECHNIQUE: Multiple contiguous axial images were obtained of the head. Using automated exposure control and adj ustment of the mA and/or kV according to patient size, radiation dose was kept as low as reasonably a chievable to obtain optimal diagnostic quality images. FINDINGS: There is decreasing subarachnoid hemorrhage. No intracranial hematoma is identified. Ventricles are n ormal in size. Posterior fossa structures are unremarkable. No extra-axial fluid collections are iden tified CONCLUSION: Decreasing subarachnoid hemorrhage. No evidence of hydrocephalus. Shilo Whaley MD on February 14, 2017 at 6:40 Board Certified Radiologist. This report was verified electronically.
[2017-02-14] MEDS: SODIUM CHLORIDE 0.9% FLUSH 10 ML FLUSH IV FLUSH SCH ×2 (08:35→21:05)
[2017-02-14] MEDS: PANTOPRAZOLE SOD 40 MG DELAYED RELEASE TAB PO SCH ×2 (08:35→08:49)
[2017-02-14] MEDS: CETIRIZINE HCL 10 MG TAB PO SCH (08:49)
[2017-02-14] MEDS: METOPROLOL TARTRATE 50 MG TAB PO SCH (08:49)
[2017-02-14] MEDS: TAMSULOSIN HCL 0.4 MG CAP PO SCH (08:49)
[2017-02-14] MEDS: DOCUSATE SODIUM 100 MG CAP PO SCH ×2 (08:49→21:03)
[2017-02-14] MEDS: SODIUM CHLOR 0.9% 1000 ML INJ 1,000 ML IV SCH ×2 (08:50→21:13)
--- NOTE | 2017-02-14 12:11 | PD.TRANSFR ---
Transfer Summary Admission Date Feb 12, 2017 at 21:43 Admitting Diagnosis Traumatic SAH Diagnoses: (1) Traumatic subarachnoid hemorrhage Diagnosis: Principal (2) Fall Diagnosis: Principal (3) CAD (coronary artery disease) Diagnosis: Secondary Transfer Summary/Subjective 86 y/o man slipped by his pool and fell, hitting his head. To [place] ED where CT revealed traumatic SAH. No LOC but felt stunned briefly. SUBJ 02/13/17: CT head stable. CTA no aneurysm. No focal deficits on neuro exam. 02/14/17: Continues to have stable neuro exam. No evident focal deficits or worsening. Sodium remains at 140 Objective Vital Signs Date Time Temp Pulse Resp B/P Pulse Ox O2 Delivery O2 Flow Rate FiO2 02/14/17 10:00 73 02/14/17 08:01 97 Nasal Cannula 3.00 02/14/17 08:00 98.1 20 158/70 Intake and Output 02/13/17 02/13/17 02/14/17 08:00 16:00 00:00 Intake Total 810 ml 764 ml 487 ml Output Total 175 ml 420 ml 325 ml Balance 635 ml 344 ml 162 ml Result Diagram: 02/14/17 0330 02/14/17 0330 Objective Remarks Gen: Alert awake Head: Hematoma right occiput. Neck: Supple, airway widely patent. Lungs: Clear, no wheezes or crackles. Air entry bilaterally Heart: NL S1S2, no m,r. No JVD. RRR. Abdomen: Soft, ND, NT, no guarding. BS active. Extremities: Warm, well perfused. Neuro: AO X 3, alert, cooperative. Speech clear. Moves 4 limbs to command. Normal motor strength x4 A/P Assessment and Plan Assessment: Traumatic Subarachnoid blood after fall Hypertension CAD s/p stent Plan: NEURO: Traumatic subarachnoid hemorrhage -Continue neuro checks per protocol -CT angiogram did not show any aneurysm. CT head 02/13 stable hemorrhage -Large amount of subarachnoid blood increase his risk of vasospasm, dario likely as it a traumatic SAH -Monitor closely for vasospasm keep magnesium above 2 RESP: -Nasal cannula oxygen -Aggressive pulmonary toilet CV: History of hypertension History of coronary artery disease -Normal saline IV fluids 75 ml per hour -Aspirin held per N/S request -Target systolic blood pressure less than 150 -DC Cardene infusion as needed. Use labetalol and hydralazine when necessary -Continue metoprolol, start Norvasc 5 mg daily GI: -Heart healthy diet. IV Protonix : -Monitor renal function closely. Dodd catheter. ID: -Monitor for infection HEME: -Monitor CBC, CMP, coags ENDO: -Electrolyte replacement protocol PROPH: -Bilateral lower extremity SCDs, CARLOS A hose. IV Protonix LINES: -Utilize peripheral IVs, central line if needed Overall impression: Neurologically stable s/p fall and significant head trauma. He requires close observation and frequent neuro checks. Consult [facility] to assume are in am 02/15/17 Level 2 Kavya Hays MD February 14, 2017 12:11
--- NOTE | 2017-02-14 12:14 | HHI.NSPN ---
(Erick Whitt) Note Status Status: Progress Note (Sandro Whittajit KOHLER) Interval History Interval History 02/12: 86 year old transferred from [place] after HCT showed subarachnoid hemorrhage within the perimesencephalic cisterns. No evidence of hydrocephalus. Patient slipped and fell backwards over wet floor hitting the back of his head. + Headaches. No LOS and no weakness. +emesis. 02/13: CT angiogram did not revealed any aneurysms or by vascular malformation. Neurologically stable. 02/14: Patient doing well this afternoon when seen. Has a headache that is better after medication. He has no other complaints. Repeat CT brain this morning with improvement. (Erick Whitt) Labs, Micro, & Vital Signs Results Allergies Coded Allergies Type Severity Reaction Last Updated Verified Codeine Adverse Reaction Intermediate NAUSEA AND VOMITING 02/12/17 Yes Recent Impressions Head CT 02/14/17 0600 Signed Impressions: Service Date/Time: Tuesday, February 14, 2017 05:52 - CONCLUSION: Decreasing subarachnoid hemorrhage. No evidence of hydrocephalus. Shilo Whaley MD Head CT 02/13/17 0500 Signed Impressions: Service Date/Time: Monday, February 13, 2017 13:12 - CONCLUSION: No significant interval change. Central subarachnoid hemorrhage again seen. Mirza Viera MD Head CTA 02/12/17 0000 Signed Impressions: Service Date/Time: Sunday, February 12, 2017 22:11 - CONCLUSION: Unremarkable study and the cause of the patient's subarachnoid hemorrhage is not identified. Apolinar Paniagua MD Head CT 02/12/17 0000 Signed Impressions: Service Date/Time: Sunday, February 12, 2017 22:11 - CONCLUSION: Stable subarachnoid hemorrhage. Apolinar Paniagua MD Chest X-Ray 02/12/17 0000 Signed Impressions: Service Date/Time: Sunday, February 12, 2017 21:51 - CONCLUSION: No acute cardiopulmonary disease. Apolinar Paniagua MD 02/12/174//174/174/ 06:00 18:00 06:00 18:00 06:00 18:00 Intake Total 810 ml 764 ml 1216 ml Output Total 175 ml 420 ml 1050 ml Balance 635 ml 344 ml 166 ml Intake IV Total 810 ml 764 ml 1216 ml Output Urine Total 175 ml 420 ml 1050 ml Laboratory Tests Test 02/13/17 02/13/17 02/14/17 04:19 21:29 03:30 Sodium Level 140 MEQ/L 140 MEQ/L Potassium Level 4.0 MEQ/L 3.7 MEQ/L Chloride Level 104 MEQ/L 104 MEQ/L Carbon Dioxide Level 27.4 MEQ/L 29.6 MEQ/L Anion Gap 9 MEQ/L 6 MEQ/L Blood Urea Nitrogen 17 MG/DL 14 MG/DL Creatinine 0.86 MG/DL 0.85 MG/DL Estimat Glomerular Filtration 84 ML/MIN 85 ML/MIN Rate Random Glucose 139 MG/DL 112 MG/DL Calcium Level 8.7 MG/DL 8.2 MG/DL Phosphorus Level 3.1 MG/DL 2.4 MG/DL Magnesium Level 2.2 MG/DL 2.2 MG/DL 2.1 MG/DL White Blood Count 7.7 TH/MM3 Red Blood Count 4.30 MIL/MM3 Hemoglobin 12.2 GM/DL Hematocrit 37.3 % Mean Corpuscular Volume 86.6 FL Mean Corpuscular Hemoglobin 28.4 PG Mean Corpuscular Hemoglobin 32.8 % Concent Red Cell Distribution Width 14.1 % Platelet Count 202 TH/MM3 Mean Platelet Volume 7.4 FL Neutrophils (%) (Auto) 63.3 % Lymphocytes (%) (Auto) 21.7 % Monocytes (%) (Auto) 8.6 % Eosinophils (%) (Auto) 5.4 % Basophils (%) (Auto) 1.0 % Neutrophils # (Auto) 4.9 TH/MM3 Lymphocytes # (Auto) 1.7 TH/MM3 Monocytes # (Auto) 0.7 TH/MM3 Eosinophils # (Auto) 0.4 TH/MM3 Basophils # (Auto) 0.1 TH/MM3 CBC Comment DIFF FINAL Differential Comment Total Bilirubin 0.6 MG/DL Aspartate Amino Transf 18 U/L (AST/SGOT) Alanine Aminotransferase 15 U/L (ALT/SGPT) Alkaline Phosphatase 74 U/L Total Protein 6.4 GM/DL Albumin 3.2 GM/DL Constitutional Vital Signs Date Time Temp Pulse Resp B/P Pulse Ox O2 Delivery O2 Flow Rate FiO2 02/14/17 10:00 73 02/14/17 08:01 97 Nasal Cannula 3.00 02/14/17 08:00 78 02/14/17 08:00 98.1 78 20 158/70 97 02/14/17 07:00 85 02/14/17 07:00 97 Nasal Cannula 2.00 02/14/17 04:00 99.1 72 20 148/69 99 02/14/17 02:00 82 02/14/17 00:00 98.7 98 20 97/46 96 02/14/17 00:00 98 02/13/17 22:00 78 02/13/17 20:00 76 02/13/17 20:00 97 Nasal Cannula 2.50 02/13/17 20:00 97 Nasal Cannula 2.50 02/13/17 20:00 99.1 76 18 134/63 96 02/13/17 18:00 79 02/13/17 18:00 79 18 127/83 96 02/13/17 17:00 74 16 122/56 97 02/13/17 16:00 98.2 69 15 128/62 99 02/13/17 16:00 69 02/13/17 15:00 74 16 131/60 96 02/13/17 15:00 68 02/13/17 14:00 69 33 119/59 99 02/13/17 13:00 66 23 126/62 98 02/14/17 07:00 Intake Total 1980 ml Output Total 1470 ml Balance 510 ml (Erick Whitt) Review of Systems/Exam ROS Constitutional: Feels weak. Denies any fevers or chills. Neuro: Headache that improves with medication. He doesn't endorse any dizziness but he states he has to get up slowly. Denies any numbness or tingling. Resp: Denies any shortness of breath or productive cough. Cardiac: Denies any chest pain, palpitations or irregular heart beat. GI: Nausea and vomiting after the fall, but none since. Denies any abdominal pain or bowel incontinence. : Denies any bladder incontinence. Extremities: Feels like he might be a light weak after the fall. Exam General: Well developed & well nourished male who appears his stated age. NAD. Resp: CTAB w/o W/R/R, equal excursion, non-laboured, on RA. CV: S1S2 w/RRR w/o M/G/R, cap refill < 2 sec, radial & pedal pulses 2+ bilaterally, no pedal edema. Monitor is sinus rhythm w/o any ectopy noted. GI: Abdomen, soft, nontender, no palpable masses or organomegaly, positive bowel sounds. Extremities: FERGUSON. Extremities normal w/o any evident discolouration, deformity or clubbing. Neuro: AAOx3. Speech clear & appropriate. Follows simple commands. CN II-XII appear intact. Sensation grossly intact to light touch to all extremities. Motor strength 5/5 to all major flexion & extension muscle groups to all extremities. (Erick Whitt) Medications Current Medications Current Medications Medications (Trade) Dose Ordered Sig/Abel Route Start Time Stop Time Status Last Admin (NS Flush) 2 ml BID IV FLUSH 02/13/17 09:00 02/13/17 20:56 (NS Flush) 2 ml UNSCH PRN IVF 02/12/17 21:15 (ZyrTEC) 10 mg DAILY PO 02/13/17 09:00 02/14/17 08:49 (CeleXA) 10 mg HS PO 02/13/17 21:00 02/13/17 20:55 (Lopressor) 50 mg DAILY PO 02/13/17 09:00 02/14/17 08:49 (Flomax) 0.4 mg DAILY PO 02/13/17 09:00 02/14/17 08:49 (Protonix) 40 mg DAILY PO 02/13/17 09:00 02/14/17 08:49 Miscellaneous 1 ea 1 ea UNSCH PRN OTHER 02/12/17 22:15 (NS 1000 ml Inj) 1,000 ml @ 84 mls/hr [id number] IV 02/12/17 22:05 02/14/17 08:50 (Tylenol) 650 mg Q6H PRN PO 02/12/17 22:15 02/13/17 21:51 (Morphine Inj) 2 mg Q2H PRN IV 02/12/17 22:15 (Protonix) 40 mg DAILY PO 02/13/17 09:00 (Zofran Inj) 4 mg Q6H PRN IV 02/12/17 22:15 02/13/17 15:26 (Colace) 100 mg BID PO 02/13/17 09:00 02/13/17 09:59 (Senokot) 17.2 mg Q12H PRN PO 02/12/17 22:15 Miscellaneous Information 1 Q361D XX 02/12/17 22:15 (Chlorhexidine 2% Cloth) 3 pack Taper DAILY@04 TOP 02/13/17 04:00 02/09/18 03:59 02/13/17 07:00 Chlorhexidine Gluconate 3 pack 3 pack UNSCH PRN TOP 02/12/17 22:15 Nicardipine HCl 25 mg/Sodium Chloride 260 ml @ 0 mls/hr TITRATE IV 02/12/17 22:45 02/14/17 06:15 Potassium Chloride 100 ml @ 50 mls/hr Q2H PRN IV 02/13/17 14:15 (KCl 20 Meq Premix Inj) 100 ml @ 50 mls/hr Q2H PRN IV 02/13/17 14:15 Potassium Bicarb/ Potassium Chloride 50 meq 50 meq UNSCH PRN PO 02/13/17 14:15 Potassium Chloride 100 ml @ 25 mls/hr UNSCH PRN IV 02/13/17 14:15 Potassium Chloride 100 ml @ 50 mls/hr Q2H PRN IV 02/13/17 14:15 (Magnesium Sulfate Inj/NS Inj) 100 ml @ 50 mls/hr UNSCH PRN IV 02/13/17 14:15 Magnesium Oxide 800 mg 800 mg UNSCH PRN PO 02/13/17 14:15 (Magnesium Sulfate Inj/NS Inj) 100 ml @ 50 mls/hr UNSCH PRN IV 02/13/17 14:15 Potassium Phosphate 2000 mg 2,000 mg Q4H PRN PO 02/13/17 14:15 (Sodium Phosphate Inj/NS 250 ml Inj) 250 ml @ 42 mls/hr UNSCH PRN IV 02/13/17 14:15 (K-Phos) 2,000 mg UNSCH PRN PO/TUBE 02/13/17 14:15 (Norvasc) 5 mg DAILY PO 02/14/17 13:00 UNV (Erick Whitt) Medical Decision Making MDM Remarks Traumatic subarachnoid hemorrhage, improved on repeat CT brain . Neurologically intact. Risks for hydrocephalus and vasospasm (Erick Whitt) Plan Plan Remarks Discussed plan of care with patient & his , questions answered. No indication for neurosurgical intervention. Neuro checks q4h. Repeat CT brain stat for any decrease in neuro status. May transfer to regular med/surg floor from NSGY's perspective. Mobilise patient w/assistance. Patient will need CTA brain/head next week. (Erick Whitt) Attending Statement I have personally seen and examined the patient on the date of this note. Pertinent documentation and study results have been reviewed by the undersigned. I have personally developed the treatment plan and performed medical decision making. Agree with findings, exam, and treatment plan as noted above. He remains awake and alert oriented conversant and appropriate Speech clear Extraocular movements intact Facial motor movement symmetric Sensation intact light touch all extremities Moves all extremities well Complains of persistent unsteady gait but no vertigo Continue physical therapy Stable for regular floor No neurosurgical intervention planned at this point (Jose Carlos Goode MD) Erick Whitt February 14, 2017 12:14 Jose Carlos Goode MD February 14, 2017 21:47
[2017-02-14] MEDS: amLODIPine BESYLATE 5 MG TAB PO SCH (14:22)
[2017-02-14] MEDS ORDERED: LABETALOL HCL 100 MG/20 ML VIAL IV PUSH PRN (17:00)
[2017-02-14] MEDS: CITALOPRAM HYDROBROMIDE 20 MG TAB PO SCH (21:04)
[2017-02-15] VITALS (14 sets, daily range): BP systolic 134–150; BP diastolic 61–67; PULSE 65–90; RESP 15–26; TEMP 97.6–98.7; O2SAT 94–99
[2017-02-15] MEDS: niCARdipine INJ 25 MG in SODIUM CHLOR 0.9% 250 ML INJ 250 ML IV SCH ×2 (02:58→09:15)
[2017-02-15] MEDS: CHLORHEXIDINE GLUCONATE 2 % 1 PACK (2 CLOTHS) TOP SCH (04:00)
[2017-02-15] MEDS: hydrALAZINE HCL 20 MG/ML VIAL IV PUSH PRN ×2 (05:09→17:47)
[2017-02-15] MEDS: SODIUM CHLORIDE 0.9% FLUSH 10 ML FLUSH IV FLUSH SCH ×2 (08:21→21:00)
[2017-02-15] MEDS: DOCUSATE SODIUM 100 MG CAP PO SCH ×3 (08:21→21:22)
[2017-02-15] MEDS: TAMSULOSIN HCL 0.4 MG CAP PO SCH (08:22)
[2017-02-15] MEDS: PANTOPRAZOLE SOD 40 MG DELAYED RELEASE TAB PO SCH (08:22)
[2017-02-15] MEDS: METOPROLOL TARTRATE 50 MG TAB PO SCH (08:22)
[2017-02-15] MEDS: amLODIPine BESYLATE 5 MG TAB PO SCH (08:23)
[2017-02-15] MEDS: CETIRIZINE HCL 10 MG TAB PO SCH (08:23)
[2017-02-15] MEDS: SODIUM CHLOR 0.9% 1000 ML INJ 1,000 ML IV SCH ×2 (08:35→09:00)
--- NOTE | 2017-02-15 11:19 | HHI.NSPN ---
(Erick Whitt) Note Status Status: Progress Note (Erick Whitt) Interval History Interval History 02/12: 86 year old transferred from [place] after HCT showed subarachnoid hemorrhage within the perimesencephalic cisterns. No evidence of hydrocephalus. Patient slipped and fell backwards over wet floor hitting the back of his head. + Headaches. No LOS and no weakness. +emesis. 02/13: CT angiogram did not revealed any aneurysms or by vascular malformation. Neurologically stable. 02/14: Patient doing well this afternoon when seen. Has a headache that is better after medication. He has no other complaints. Repeat CT brain this morning with improvement. 02/15: Patient continues to do well. He denies any headache today. Transfer orders were written for a regular med/surg floor and he is waiting for a bed assignment. (Erick Whitt) Labs, Micro, & Vital Signs Constitutional Vital Signs Date Time Temp Pulse Resp B/P Pulse Ox O2 Delivery O2 Flow Rate FiO2 02/15/17 08:28 98 Nasal Cannula 2.00 02/15/17 08:00 78 02/15/17 07:00 97 Nasal Cannula 2.00 02/15/17 06:00 84 02/15/17 04:00 97.7 74 17 142/67 97 02/15/17 04:00 74 02/15/17 02:00 82 02/15/17 00:00 85 02/15/17 00:00 97.6 90 26 139/63 94 02/14/17 23:00 98 Nasal Cannula 2.00 02/14/17 22:00 83 02/14/17 20:00 86 02/14/17 20:00 97.7 77 17 139/63 98 02/14/17 19:00 96 Nasal Cannula 2.00 02/14/17 18:00 86 02/14/17 16:00 80 02/14/17 16:00 98.0 80 16 156/69 96 02/14/17 14:00 68 02/14/17 12:00 97.7 66 20 143/67 97 02/14/17 12:00 66 02/15/17 07:00 Intake Total 3406 ml Output Total 2860 ml Balance 546 ml (Erick Whitt) Review of Systems/Exam ROS Constitutional: Denies any fevers or chills. Neuro: Denies any headache, dizziness, numbness or tingling. Resp: Denies any shortness of breath or productive cough. Cardiac: Denies any chest pain, palpitations or irregular heart beat. GI: Denies any abdominal pain, nausea, vomiting or bowel incontinence. : Denies any bladder incontinence. Extremities: Denies any pain or weakness. Exam General: Well developed & well nourished male who appears his stated age. NAD. HEENT: Occipital scalp with mild swelling that is mildly TTP. Resp: CTAB w/o W/R/R, equal excursion, non-laboured, on RA. CV: S1S2 w/RRR w/o M/G/R, cap refill < 2 sec, radial & pedal pulses 2+ bilaterally, no pedal edema. Monitor is sinus rhythm w/o any ectopy noted. GI: Abdomen, soft, nontender, positive bowel sounds. Extremities: FERGUSON. Extremities normal w/o any evident discolouration, deformity or clubbing. Neuro: AAOx3. Speech clear & appropriate. Follows simple commands. Sensation grossly intact to light touch to all extremities. Motor strength 5/5 to all major flexion & extension muscle groups to all extremities. (Erick Whitt) Medications Current Medications Current Medications Medications (Trade) Dose Ordered Sig/Abel Route Start Time Stop Time Status Last Admin (NS Flush) 2 ml BID IV FLUSH 02/13/17 09:00 02/15/17 08:21 (NS Flush) 2 ml UNSCH PRN IVF 02/12/17 21:15 (ZyrTEC) 10 mg DAILY PO 02/13/17 09:00 02/15/17 08:23 (CeleXA) 10 mg HS PO 02/13/17 21:00 02/14/17 21:04 (Lopressor) 50 mg DAILY PO 02/13/17 09:00 02/15/17 08:22 (Flomax) 0.4 mg DAILY PO 02/13/17 09:00 02/15/17 08:22 (Protonix) 40 mg DAILY PO 02/13/17 09:00 02/15/17 08:22 Miscellaneous 1 ea 1 ea UNSCH PRN OTHER 02/12/17 22:15 (NS 1000 ml Inj) 1,000 ml @ 84 mls/hr [id number] IV 02/12/17 22:05 02/15/17 09:00 (Tylenol) 650 mg Q6H PRN PO 02/12/17 22:15 02/13/17 21:51 (Morphine Inj) 2 mg Q2H PRN IV 02/12/17 22:15 (Zofran Inj) 4 mg Q6H PRN IV 02/12/17 22:15 02/13/17 15:26 (Colace) 100 mg BID PO 02/13/17 09:00 02/15/17 08:21 (Senokot) 17.2 mg Q12H PRN PO 02/12/17 22:15 Miscellaneous Information 1 [id number] XX 02/12/17 22:15 (Chlorhexidine 2% Cloth) 3 pack Taper DAILY@04 TOP 02/13/17 04:00 02/09/18 03:59 02/15/17 04:00 Chlorhexidine Gluconate 3 pack 3 pack UNSCH PRN TOP 02/12/17 22:15 Nicardipine HCl 25 mg/Sodium Chloride 260 ml @ 0 mls/hr TITRATE IV 02/12/17 22:45 02/15/17 09:15 Potassium Chloride 100 ml @ 50 mls/hr Q2H PRN IV 02/13/17 14:15 (KCl 20 Meq Premix Inj) 100 ml @ 50 mls/hr Q2H PRN IV 02/13/17 14:15 Potassium Bicarb/ Potassium Chloride 50 meq 50 meq UNSCH PRN PO 02/13/17 14:15 Potassium Chloride 100 ml @ 25 mls/hr UNSCH PRN IV 02/13/17 14:15 Potassium Chloride 100 ml @ 50 mls/hr Q2H PRN IV 02/13/17 14:15 (Magnesium Sulfate Inj/NS Inj) 100 ml @ 50 mls/hr UNSCH PRN IV 02/13/17 14:15 Magnesium Oxide 800 mg 800 mg UNSCH PRN PO 02/13/17 14:15 (Magnesium Sulfate Inj/NS Inj) 100 ml @ 50 mls/hr UNSCH PRN IV 02/13/17 14:15 Potassium Phosphate 2000 mg 2,000 mg Q4H PRN PO 02/13/17 14:15 (Sodium Phosphate Inj/NS 250 ml Inj) 250 ml @ 42 mls/hr UNSCH PRN IV 02/13/17 14:15 (K-Phos) 2,000 mg UNSCH PRN PO/TUBE 02/13/17 14:15 (Norvasc) 5 mg DAILY PO 02/14/17 13:00 02/15/17 08:23 (Apresoline Inj) 20 mg Q4H PRN IV PUSH 02/14/17 17:00 02/15/17 05:09 (Trandate Inj) 20 mg Q4H PRN IV PUSH 02/14/17 17:00 (Erick Whitt) Medical Decision Making MDM Remarks Traumatic subarachnoid hemorrhage, improved on repeat CT brain . Neurologically intact. Risks for hydrocephalus and vasospasm (Erick Whitt) Plan Plan Remarks Discussed plan of care with patient & his , questions answered. No indication for neurosurgical intervention. Neuro checks q4h. Repeat CT brain stat for any decrease in neuro status. May transfer to regular med/surg floor from NSGY's perspective. Mobilise patient w/assistance. Recommend PT & OT eval. Okay for discharge from NSGY's perspective. Will sign off at present, if we may be of further service please consult the service as needed. Thank you for allowing us to participate in your patient's care. Patient will need CTA brain/head next week. (Erick Whitt) Attending Statement I have personally seen and examined the patient on the date of this note. Pertinent documentation and study results have been reviewed by the undersigned. I have personally developed the treatment plan and performed medical decision making. Agree with findings, exam, and treatment plan as noted above. Remains awake and alert with nonfocal neurologic exam. Discussed with patient and his family in the room this morning. Although he did have a slip and fall trauma without any obvious syncopal episode , the pattern of blood at the cistern remains suspicious for aneurysmal versus venous subarachnoid hemorrhage. Option of a follow-up CT angiogram and CT of the head have been discussed with the family and they wished to proceed with this study, tentatively planned for next week depending on the patient's clinical status. He can be discharged home from a neurosurgical standpoint when medically cleared and hypertension well controlled, with follow-up imaging studies on an outpatient basis. (Jose Carlos Goode MD) Erick Whitt February 15, 2017 11:19 Jose Carlos Goode MD February 15, 2017 18:45
[2017-02-15] MEDS ORDERED: AMLO5 PO (15:07)
[2017-02-15] MEDS ORDERED: HYDROCHLOROTHIAZIDE 12.5 MG CAP PO ONE (16:00)
[2017-02-15] MEDS: cloNIDine HCL 0.1 MG TAB PO PRN (17:25)
[2017-02-15] MEDS: ACETAMINOPHEN 325 MG TAB PO PRN ×2 (18:18→19:20)
[2017-02-15] MEDS ORDERED: METOPROLOL TARTRATE 25 MG TAB PO ONE (18:45)
[2017-02-15] MEDS ORDERED: amLODIPine BESYLATE 5 MG TAB PO ONE (18:45)
--- NOTE | 2017-02-15 18:45 | HHI.PR ---
Subjective Remarks Patient seen this afternoon around 3 PM. Says he is feeling all right. Feels a little off balance while walking. Denies feeling as if she will pass out. Objective Vital Signs Date Time Temp Pulse Resp B/P Pulse Ox O2 Delivery O2 Flow Rate FiO2 02/15/17 18:00 77 02/15/17 16:00 97.9 85 18 150/67 95 02/15/17 16:00 77 02/15/17 14:00 77 02/15/17 12:00 71 02/15/17 12:00 98.7 71 15 143/66 99 02/15/17 10:00 65 02/15/17 08:28 98 Nasal Cannula 2.00 02/15/17 08:00 98.3 78 16 149/63 97 02/15/17 08:00 78 02/15/17 07:00 97 Nasal Cannula 2.00 02/15/17 06:00 84 02/15/17 04:00 97.7 74 17 142/67 97 02/15/17 04:00 74 02/15/17 02:00 82 02/15/17 00:00 85 02/15/17 00:00 97.6 90 26 139/63 94 02/14/17 23:00 98 Nasal Cannula 2.00 02/14/17 22:00 83 02/14/17 20:00 86 02/14/17 20:00 97.7 77 17 139/63 98 02/14/17 19:00 96 Nasal Cannula 2.00 I/O 02/14/17 02/14/17 02/14/17 02/15/17 02/15/17 02/15/17 07:00 15:00 23:00 07:00 15:00 23:00 Intake Total 729 ml 1430 ml 963 ml 1013 ml 976 ml Output Total 725 ml 1350 ml 750 ml 760 ml 875 ml Balance 4 ml 80 ml 213 ml 253 ml 101 ml Intake Oral 480 ml 240 ml 100 ml 240 ml IV Total 729 ml 950 ml 723 ml 913 ml 736 ml Output Urine Total 725 ml 1350 ml 750 ml 760 ml 875 ml # Bowel Movements 1 Result Diagram: 02/14/17 0330 02/14/17 0330 Imaging Last Impressions Head CT 02/14/17 0600 Signed Impressions: Service Date/Time: Tuesday, February 14, 2017 05:52 - CONCLUSION: Decreasing subarachnoid hemorrhage. No evidence of hydrocephalus. Shilo Whaley MD Head CTA 02/12/17 0000 Signed Impressions: Service Date/Time: Sunday, February 12, 2017 22:11 - CONCLUSION: Unremarkable study and the cause of the patient's subarachnoid hemorrhage is not identified. Apolinar Paniagua MD Chest X-Ray 02/12/17 0000 Signed Impressions: Service Date/Time: Sunday, February 12, 2017 21:51 - CONCLUSION: No acute cardiopulmonary disease. Apolinar Paniagua MD Objective Remarks GENERAL: patient sitting up on edge of bed. Appears comfortable. Alert and oriented. SKIN: Warm and dry. HEAD: Normocephalic. EYES: No scleral icterus. No injection or drainage. NECK: Supple, trachea midline. No JVD. CARDIOVASCULAR: Regular rate and rhythm without murmurs, gallops, or rubs. RESPIRATORY: Breath sounds equal bilaterally. No accessory muscle use. GASTROINTESTINAL: Abdomen soft, non-tender, nondistended. MUSCULOSKELETAL: No cyanosis, or edema. BACK: Nontender without obvious deformity. No CVA tenderness. A/P Assessment and Plan //Traumatic Subarachnoid hemorrhage after fall. -Neuro checks -Repeat CT with improvement -Blood pressure control -Neurosurgery has Cleared patient for discharge if blood pressure can be controlled //Hypertension. need SBP<140 before DC. -5/2 blood pressure elevated. Discontinue fluids. Blood pressure medication adjusted. - Continue to monitor and Adjust blood pressure medications as needed. //CAD s/p stent. -Hold aspirin -Continue beta lizette. //History of BPH. Continue tamsulosin //History of allergies. Continue Zyrtec. //History of depression. Continue Celexa //Prophylaxis. SCDs. Hold anticoagulation due to subarachnoid hemorrhage. Discharge Planning likely discharge home tomorrow if patient's blood pressure is controlled. He will need a walker. Vitor Siu MD February 15, 2017 18:45
[2017-02-15] MEDS ORDERED: MISC-274 (18:47)
[2017-02-15] MEDS: CITALOPRAM HYDROBROMIDE 20 MG TAB PO SCH (21:19)
[2017-02-16] VITALS (14 sets, daily range): BP systolic 118–179; BP diastolic 58–74; PULSE 79–92; RESP 15–21; TEMP 97.7–99.6; O2SAT 92–96
[2017-02-16] MEDS: CHLORHEXIDINE GLUCONATE 2 % 1 PACK (2 CLOTHS) TOP SCH (04:00)
[2017-02-16] MEDS: CETIRIZINE HCL 10 MG TAB PO SCH (08:35)
[2017-02-16] MEDS: PANTOPRAZOLE SOD 40 MG DELAYED RELEASE TAB PO SCH (08:35)
[2017-02-16] MEDS: amLODIPine BESYLATE 5 MG TAB PO SCH (08:35)
[2017-02-16] MEDS: TAMSULOSIN HCL 0.4 MG CAP PO SCH (08:35)
[2017-02-16] MEDS: DOCUSATE SODIUM 100 MG CAP PO SCH ×2 (08:35→21:21)
[2017-02-16] MEDS ORDERED: METOPROLOL SUCCINATE 50 MG EXTENDED RELEASE TAB PO SCH (09:00)
[2017-02-16] MEDS: SODIUM CHLORIDE 0.9% FLUSH 10 ML FLUSH IV FLUSH SCH ×2 (09:00→21:00)
[2017-02-16] MEDS ORDERED: HYDROCHLOROTHIAZIDE 12.5 MG CAP PO SCH (09:00)
[2017-02-16] MEDS ORDERED: LOSARTAN 25 MG TAB PO SCH (10:00)
[2017-02-16] MEDS ORDERED: LOSARTAN 25 MG TAB PO ONE (13:00)
[2017-02-16] MEDS ORDERED: HYDROCHLOROTHIAZIDE 12.5 MG CAP PO ONE (13:15)
[2017-02-16 14:02] LABS: BICARBONATE 31.4 MEQ/L (21.0-32.0); POTASSIUM 3.5 MEQ/L (3.5-5.1)
[2017-02-16] MEDS: ACETAMINOPHEN 325 MG TAB PO PRN (16:16)
[2017-02-16] MEDS ORDERED: hydrALAZINE HCL 10 MG TAB PO ONE (17:00)
[2017-02-16] MEDS: hydrALAZINE HCL 20 MG/ML VIAL IV PUSH PRN (17:25)
[2017-02-16] MEDS ORDERED: METOPROLOL TARTRATE 25 MG TAB PO ONE (17:45)
[2017-02-16] MEDS ORDERED: hydrALAZINE HCL 10 MG TAB PO SCH (18:00)
[2017-02-16 20:02] LABS: BLOOD, URINE NEG (NEG); GLUCOSE,URINE NEG (NEG); KETONE, URINE NEG (NEG); NITRITE,URINE NEG (NEG); URINE COLOR YELLOW (YELLW/STRAW)
[2017-02-16 20:13] LABS: COMMENT (UR) CULT NOT INDICATED; CULTURE IF INDICATED CULT NOT INDICATED
[2017-02-16] MEDS: CITALOPRAM HYDROBROMIDE 20 MG TAB PO SCH (21:27)
[2017-02-16] MEDS: hydrALAZINE HCL 10 MG TAB PO SCH (21:28)
--- NOTE | 2017-02-16 23:26 | HHI.PR ---
Subjective Remarks Patient seen around noon, and later around 5 PM. He continues report an intermittent headache, negative for headache on my examination however. He denies any chest pain or shortness of breath. Discussed blood pressure control with nursing. Objective Vital Signs Date Time Temp Pulse Resp B/P Pulse Ox O2 Delivery O2 Flow Rate FiO2 02/16/17 22:00 86 02/16/17 21:10 94 21 02/16/17 20:00 91 02/16/17 20:00 98.6 91 21 144/65 94 02/16/17 19:00 94 Room Air 02/16/17 18:19 14 02/16/17 18:00 90 02/16/17 16:00 90 02/16/17 16:00 99.6 90 18 179/74 96 02/16/17 14:00 80 02/16/17 12:28 23 02/16/17 12:00 84 02/16/17 12:00 98.7 80 19 136/62 94 02/16/17 10:00 88 02/16/17 08:25 87 02/16/17 08:00 98.2 92 19 156/71 92 02/16/17 06:00 92 02/16/17 04:00 97.7 81 17 118/58 94 02/16/17 04:00 81 02/16/17 02:00 79 02/16/17 00:00 81 02/16/17 00:00 98.0 81 15 118/58 95 I/O 02/15/17 02/15/17 02/15/17 02/16/17 02/16/17 02/16/17 07:00 15:00 23:00 07:00 15:00 23:00 Intake Total 1013 ml 976 ml 705 ml 940 ml 315 ml 400 ml Output Total 760 ml 875 ml 600 ml 12 ml 850 ml 785 ml Balance 253 ml 101 ml 105 ml 928 ml -535 ml -385 ml Intake Oral 100 ml 240 ml 200 ml 200 ml 295 ml 400 ml IV Total 913 ml 736 ml 505 ml 740 ml 20 ml Output Urine Total 760 ml 875 ml 600 ml 12 ml 850 ml 785 ml Stool Total 0 ml # Bowel Movements 1 0 0 0 Result Diagram: 02/14/17 0330 02/16/17 1320 Objective Remarks GENERAL: patient sitting up on edge of bed. Appears comfortable. Alert and oriented x3. SKIN: Warm and dry. HEAD: Normocephalic. EYES: No scleral icterus. No injection or drainage. NECK: Supple, trachea midline. No JVD. CARDIOVASCULAR: Regular rate and rhythm without murmurs, gallops, or rubs. RESPIRATORY: Breath sounds equal bilaterally. No accessory muscle use. GASTROINTESTINAL: Abdomen soft, non-tender, nondistended. MUSCULOSKELETAL: No cyanosis, or edema. BACK: Nontender without obvious deformity. No CVA tenderness. A/P Assessment and Plan //Traumatic Subarachnoid hemorrhage after fall. -Neuro checks -Repeat CT with improvement -Blood pressure control -Neurosurgery has Cleared patient for discharge if blood pressure can be controlled //Hypertension. need SBP<140 before DC. -5/2 blood pressure elevated. Discontinue fluids. Blood pressure medication adjusted. - Continue to monitor and Adjust blood pressure medications as needed. -5/3 Blood pressure elevated today. Patient denies any heavy drinking or with thrall. Adjusting medications to try and maintain systolic blood pressure below 140. //CAD s/p stent. -Hold aspirin -Continue beta lizette. //History of BPH. Continue tamsulosin //History of allergies. Continue Zyrtec. //History of depression. Continue Celexa //Prophylaxis. SCDs. Hold anticoagulation due to subarachnoid hemorrhage. Discharge Planning blood pressure still elevated. likely discharge home tomorrow if patient's blood pressure is controlled. He will need a walker. Vitor Siu MD February 16, 2017 23:26
[2017-02-17] VITALS (13 sets, daily range): BP systolic 106–153; BP diastolic 54–90; PULSE 75–99; RESP 16–22; TEMP 97.8–100.6; O2SAT 93–98
[2017-02-17] MEDS: ONDANSETRON HCL 4 MG/2 ML VIAL IV PRN ×3 (00:16→13:36)
[2017-02-17] MEDS: ACETAMINOPHEN 325 MG TAB PO PRN ×2 (03:07→09:58)
[2017-02-17 03:57] LABS: AUTOMATED NEUTROPHIL # 5.8 TH/MM3 (1.8-7.7); BASOPHIL # 0.1 TH/MM3 (0-0.2); BASOPHIL % 0.9 % (0.0-2.0); EOSINOPHIL # 0.3 TH/MM3 (0-0.4); EOSINOPHIL % 3.9 % (0.0-4.0); HEMATOCRIT 40.4 % (39.0-51.0); HEMO FLAGS DIFF FINAL; LYMPH % 15.8 % (9.0-44.0); LYMPHOCYTE # 1.3 TH/MM3 (1.0-4.8); MEAN CELL VOLUME 85.4 FL (80.0-100.0); MEAN CORPUSCULAR HEMOGLOBIN 29.3 PG (27.0-34.0); MEAN CORPUSCULAR HGB CONC 34.4 % (32.0-36.0); MONO % 7.5 % (0.0-8.0); NEUT % 71.9 % (16.0-70.0); PLATELET COUNT 251 TH/MM3 (150-450); RED BLOOD COUNT 4.73 MIL/MM3 (4.50-5.90); RED CELL DISTRIBUTION WIDTH 13.7 % (11.6-17.2); WHITE BLOOD COUNT 8.1 TH/MM3 (4.0-11.0)
[2017-02-17] MEDS: CHLORHEXIDINE GLUCONATE 2 % 1 PACK (2 CLOTHS) TOP SCH (04:00)
[2017-02-17 04:27] LABS: BICARBONATE 28.7 MEQ/L (21.0-32.0); POTASSIUM 3.9 MEQ/L (3.5-5.1)
[2017-02-17] MEDS: hydrALAZINE HCL 10 MG TAB PO SCH ×4 (06:27→21:00)
[2017-02-17] MEDS: SODIUM CHLORIDE 0.9% FLUSH 10 ML FLUSH IV FLUSH SCH ×2 (09:00→21:06)
[2017-02-17] MEDS: DOCUSATE SODIUM 100 MG CAP PO SCH ×2 (09:03→20:59)
[2017-02-17] MEDS: PANTOPRAZOLE SOD 40 MG DELAYED RELEASE TAB PO SCH (09:03)
[2017-02-17] MEDS: TAMSULOSIN HCL 0.4 MG CAP PO SCH (09:03)
[2017-02-17] MEDS: METOPROLOL SUCCINATE 50 MG EXTENDED RELEASE TAB PO SCH (09:04)
[2017-02-17] MEDS: CETIRIZINE HCL 10 MG TAB PO SCH (09:04)
[2017-02-17] MEDS: amLODIPine BESYLATE 5 MG TAB PO SCH (09:07)
[2017-02-17] MEDS: LOSARTAN 50 MG TAB PO SCH (09:57)
[2017-02-17] MEDS: HYDROCHLOROTHIAZIDE 25 MG TAB PO SCH (09:57)
--- NOTE | 2017-02-17 17:46 | RADRPT ---
EXAM DATE/TIME: 02/17/2017 17:00 [facility] COMPARISON: CT BRAIN W/O CONTRAST, February 14, 2017, 5:52. INDICATIONS : Altered mental status today histor y of fall/bleed. RADIATION DOSE: 47.58 CTDIvol (mGy) MEDICAL HISTORY : Hypertension. history of bleed SURGICAL HISTORY : Tonsillectomy. ENCOUNTER: Initial ACUITY: 1 day PAIN SCALE: 4/10 LOCATION: cranial TECHNIQUE: Multiple contiguous axial images were obtained of the head. Using automated exposure control and adj ustment of the mA and/or kV according to patient size, radiation dose was kept as low as reasonably a chievable to obtain optimal diagnostic quality images. FINDINGS: The previously seen subarachnoid hemorrhage continues to mature. Residual hemorrhage is noted within the interhemispheric fissure as well as the suprasellar cistern. No new hemorrhage is observed. The b rain shows normal attenuation. Ventricles are normal in size. Mucous retention cysts involving both m axillary sinuses. Small air-fluid level without mucosal thickening involving the left sphenoid sinus. Calvarium is intact. CONCLUSION: Continued maturation of the subarachnoid hemorrhage. No hydrocephaly or new hemorrhage seen. Dony Knight Jr., MD on February 17, 2017 at 17:42 Board Certified Radiologist. This report was verified electronically.
[2017-02-17] MEDS: cloNIDine HCL 0.1 MG TAB PO PRN (17:56)
[2017-02-17] MEDS: SODIUM CHLORIDE 23.4% INJ 188 MEQ in SODIUM CHLOR 0.9% 1000 ML INJ 1,000 ML IV SCH (18:05)
--- NOTE | 2017-02-17 18:49 | HHI.NSPN ---
History Chief Complaint: persistent relatively mild headache Interval History 86-year-old transferred from [place] with subarachnoid hemorrhage following a slip and fall. Initial CT angiogram negative. System Review Comments Patient states that his headache is about the same as usual for the past few days. His family has been concerned today that the headache is not going away. He apparently also has not been quite as alert today and not been eating very well with some nausea earlier today. He has no complaint of dizziness or vertigo. Presently no nausea. He does not feel confused. Exam Results Vital Signs Date Time Temp Pulse Resp B/P Pulse Ox O2 Delivery O2 Flow Rate FiO2 02/17/17 18:00 78 02/17/17 16:00 100.6 21 146/63 96 02/17/17 07:00 Room Air 02/16/17 21:10 21 02/15/17 08:28 2.00 Intake and Output 02/16/17 02/16/17 02/17/17 08:00 16:00 00:00 Intake Total 940 ml 315 ml 400 ml Output Total 12 ml 850 ml 785 ml Balance 928 ml -535 ml -385 ml Physical Examination General: Well developed & well nourished male who appears his stated age. NAD. HEENT: Occipital scalp with mild swelling. Mild tenderness to palpation Resp: Clear to auscultation. No wheeze CV: Regular rhythm without murmur. No carotid for a GI: Abdomen, soft, nontender, positive bowel sounds. Extremities: FERGUSON. Extremities normal w/o any evident discolouration. Posterior tibial 2+ bilateral Neuro: Awake and alert Oriented X 3 Speech and thought processes are mildly slowed Conversant and appropriate Follow simple commands well Answers questions appropriately Reasonable judgment and insight Recent and remote memory are intact No evidence of anxiety or depression Pupils are equal and reactive to accommodation. Extra-ocular movements, visual minor to confrontation, facial sensorimotor, tongue, palate, sternocleidomastoid testing, hearing to finger rub testing, and bilateral shoulder shrug are all intact. Sensation is intact to light touch in all extremities Strength normal major flexion and extension groups all extremities Nicol's absent bilaterally No ankle clonus Plantar responses absent bilateral Fine motor movements slightly slow upper extremities Lab, Micro, Other Results 02/17/2017 CT scan. Images reviewed by the undersigned. Subarachnoid hemorrhage is improving. No obvious hydrocephalus. Question of small remote infarcts. No significant edema Head CT 02/17/17 1620 Signed Impressions: Service Date/Time: February 17:00 - CONCLUSION: Continued maturation of the subarachnoid hemorrhage. No hydrocephaly or new hemorrhage seen. Dony Knight Jr., MD Laboratory Tests Test 02/16/17 02/17/17 02/17/17 19:45 03:19 17:32 Urine Color YELLOW Urine Turbidity CLEAR Urine pH 6.0 Urine Specific [place] 1.014 Urine Protein NEG mg/dL Urine Glucose (UA) NEG mg/dL Urine Ketones NEG mg/dL Urine Occult Blood NEG Urine Nitrite NEG Urine Bilirubin NEG Urine Urobilinogen LESS THAN 2.0 MG/DL Urine Leukocyte Esterase NEG Urine RBC 1 /hpf Urine WBC LESS THAN 1 /hpf Microscopic Urinalysis Comment CULT NOT INDICATED White Blood Count 8.1 TH/MM3 Red Blood Count 4.73 MIL/MM3 Hemoglobin 13.9 GM/DL Hematocrit 40.4 % Mean Corpuscular Volume 85.4 FL Mean Corpuscular Hemoglobin 29.3 PG Mean Corpuscular Hemoglobin 34.4 % Concent Red Cell Distribution Width 13.7 % Platelet Count 251 TH/MM3 Mean Platelet Volume 7.4 FL Neutrophils (%) (Auto) 71.9 % Lymphocytes (%) (Auto) 15.8 % Monocytes (%) (Auto) 7.5 % Eosinophils (%) (Auto) 3.9 % Basophils (%) (Auto) 0.9 % Neutrophils # (Auto) 5.8 TH/MM3 Lymphocytes # (Auto) 1.3 TH/MM3 Monocytes # (Auto) 0.6 TH/MM3 Eosinophils # (Auto) 0.3 TH/MM3 Basophils # (Auto) 0.1 TH/MM3 CBC Comment DIFF FINAL Differential Comment Sodium Level 132 MEQ/L 131 MEQ/L Potassium Level 3.9 MEQ/L Chloride Level 93 MEQ/L Carbon Dioxide Level 28.7 MEQ/L Anion Gap 10 MEQ/L Blood Urea Nitrogen 14 MG/DL Creatinine 0.80 MG/DL Estimat Glomerular Filtration 91 ML/MIN Rate Random Glucose 128 MG/DL Calcium Level 9.0 MG/DL Phosphorus Level 3.2 MG/DL Magnesium Level 2.0 MG/DL Albumin 3.4 GM/DL Medical Decision Making Impression and Plan Impression: 1. Improving CT scan with stable neurologic exam following probable posttraumatic subarachnoid hemorrhage. Patient appears little more fatigued and not eating as well today. 2. Hyponatremia. Observe for possible cerebral salt wasting. No evidence of DI Plan: Discussed at length with the family at bedside. CT scan results reviewed with him. Started on 2% saline for hyponatremia. Continue follow-up sodium on routine basis Continue therapy Encourage patient by mouth intake. Family will bring him home tomorrow. Discussed with medicine service Jose Carlos Goode MD February 17, 2017 18:49
[2017-02-17] MEDS: CITALOPRAM HYDROBROMIDE 20 MG TAB PO SCH (20:59)
--- NOTE | 2017-02-17 23:36 | HHI.PR ---
Subjective Remarks Patient seen this morning around 11 AM. He is sitting up in bed. He reports intermittent headache. Very somnolent which is worsening over the past several days. Reports poor sleep Objective Vital Signs Date Time Temp Pulse Resp B/P Pulse Ox O2 Delivery O2 Flow Rate FiO2 02/17/17 20:04 93 02/17/17 20:00 94 Room Air 02/17/17 18:00 78 02/17/17 16:00 100.6 80 21 146/63 96 02/17/17 16:00 92 02/17/17 14:00 82 02/17/17 12:00 86 02/17/17 12:00 98.7 99 21 146/67 94 02/17/17 10:00 80 02/17/17 08:00 99.0 82 21 106/54 98 02/17/17 08:00 81 02/17/17 07:00 98 Room Air 02/17/17 06:00 77 02/17/17 04:00 99.0 95 22 143/90 98 02/17/17 04:00 95 02/17/17 02:00 95 02/17/17 00:00 97.8 88 20 131/62 94 02/17/17 00:00 88 I/O 02/16/17 02/16/17 02/16/17 02/17/17 02/17/17 02/17/17 07:00 15:00 23:00 07:00 15:00 23:00 Intake Total 940 ml 315 ml 400 ml 300 ml 180 ml Output Total 12 ml 850 ml 785 ml 650 ml 0 ml Balance 928 ml -535 ml -385 ml -350 ml 180 ml Intake Oral 200 ml 295 ml 400 ml 300 ml 180 ml IV Total 740 ml 20 ml Output Urine Total 12 ml 850 ml 785 ml 650 ml Stool Total 0 ml 0 ml 0 ml # Voids 1 # Bowel Movements 0 0 Result Diagram: 02/17/17 0319 02/17/17 1732 Objective Remarks GENERAL: patient sitting upin bed. Somnolent. Appears comfortable. Alert and oriented x3. SKIN: Warm and dry. HEAD: Normocephalic. EYES: No scleral icterus. No injection or drainage. pupils equal round and reactive to light NECK: Supple, trachea midline. No JVD. CARDIOVASCULAR: Regular rate and rhythm without murmurs, gallops, or rubs. RESPIRATORY: Breath sounds equal bilaterally. No accessory muscle use. GASTROINTESTINAL: Abdomen soft, non-tender, nondistended. MUSCULOSKELETAL: No cyanosis, or edema. BACK: Nontender without obvious deformity. No CVA tenderness. A/P Assessment and Plan 02/17 Somnolent. Reorient, window blinds open during the day, lights off at night. Discussed with neurosurgeon, who is ordered CT scan. CT scan head shows further improvement. Hyponatremia puts patient at risk for cerebral edemafor which neurosurgery has ordered 2% saline. And close monitoring //Traumatic Subarachnoid hemorrhage after fall. -Neuro checks -Repeat CT with improvement -Blood pressure control -Appears to be improving on repeat CT 02/17 //Somnolence. This likely secondary to poor sleep in the hospital. Discussed with nursing. We'll keep window blinds open during the day, lights off at night //Hypernatremia. Treatment by neurosurgery to prevent cerebral edema. //Hypertension. need SBP<140 before DC. -02/15 blood pressure elevated. Discontinue fluids. Blood pressure medication adjusted. - Continue to monitor and Adjust blood pressure medications as needed. -/ Blood pressure elevated today. Patient denies any heavy drinking or with thrall. Adjusting medications to try and maintain systolic blood pressure below 140. //CAD s/p stent. -Hold aspirin -Continue beta lizette. //History of BPH. Continue tamsulosin //History of allergies. Continue Zyrtec. //History of depression. Continue Celexa //Prophylaxis. SCDs. Hold anticoagulation due to subarachnoid hemorrhage. Discharge Planning blood pressure being treated for hypernatremia We'll need neurosurgery clearance prior to discharge . He will need a walker. Vitor Siu MD February 17, 2017 23:36
[2017-02-18] VITALS (12 sets, daily range): BP systolic 104–151; BP diastolic 52–72; PULSE 67–99; RESP 16–22; TEMP 98–99.7; O2SAT 76–100
[2017-02-18] MEDS: CHLORHEXIDINE GLUCONATE 2 % 1 PACK (2 CLOTHS) TOP SCH (03:57)
[2017-02-18 04:36] LABS: AUTOMATED NEUTROPHIL # 5.3 TH/MM3 (1.8-7.7); BASOPHIL % 0.5 % (0.0-2.0); EOSINOPHIL # 0.3 TH/MM3 (0-0.4); EOSINOPHIL % 4.3 % (0.0-4.0); HEMATOCRIT 42.9 % (39.0-51.0); HEMO FLAGS DIFF FINAL; LYMPH % 16.9 % (9.0-44.0); LYMPHOCYTE # 1.3 TH/MM3 (1.0-4.8); MEAN CELL VOLUME 85.6 FL (80.0-100.0); MEAN CORPUSCULAR HEMOGLOBIN 28.7 PG (27.0-34.0); MEAN CORPUSCULAR HGB CONC 33.5 % (32.0-36.0); MONO % 8.8 % (0.0-8.0); NEUT % 69.5 % (16.0-70.0); PLATELET COUNT 214 TH/MM3 (150-450); RED BLOOD COUNT 5.02 MIL/MM3 (4.50-5.90); RED CELL DISTRIBUTION WIDTH 13.5 % (11.6-17.2); WHITE BLOOD COUNT 7.6 TH/MM3 (4.0-11.0)
[2017-02-18 04:45] LABS: BICARBONATE 30.2 MEQ/L (21.0-32.0); MAGNESIUM 2.1 MG/DL (1.5-2.5); POTASSIUM 3.6 MEQ/L (3.5-5.1)
[2017-02-18] MEDS: hydrALAZINE HCL 10 MG TAB PO SCH ×3 (06:16→21:11)
[2017-02-18] MEDS: ACETAMINOPHEN 325 MG TAB PO PRN ×2 (06:26→13:14)
[2017-02-18] MEDS: CETIRIZINE HCL 10 MG TAB PO SCH (08:34)
[2017-02-18] MEDS: amLODIPine BESYLATE 5 MG TAB PO SCH (08:34)
[2017-02-18] MEDS: METOPROLOL SUCCINATE 50 MG EXTENDED RELEASE TAB PO SCH (08:34)
[2017-02-18] MEDS: HYDROCHLOROTHIAZIDE 25 MG TAB PO SCH (08:34)
[2017-02-18] MEDS: PANTOPRAZOLE SOD 40 MG DELAYED RELEASE TAB PO SCH (08:34)
[2017-02-18] MEDS: TAMSULOSIN HCL 0.4 MG CAP PO SCH (08:34)
[2017-02-18] MEDS: LOSARTAN 50 MG TAB PO SCH (08:34)
[2017-02-18] MEDS: DOCUSATE SODIUM 100 MG CAP PO SCH ×2 (08:34→21:11)
[2017-02-18] MEDS: SODIUM CHLORIDE 0.9% FLUSH 10 ML FLUSH IV FLUSH SCH ×2 (09:00→21:11)
--- NOTE | 2017-02-18 11:23 | HHI.NSPN ---
(Erick Whitt) Note Status Status: Progress Note (Erick Whitt) Interval History Interval History 02/12: 86 year old transferred from [place] after HCT showed subarachnoid hemorrhage within the perimesencephalic cisterns. No evidence of hydrocephalus. Patient slipped and fell backwards over wet floor hitting the back of his head. + Headaches. No LOS and no weakness. +emesis. 02/13: CT angiogram did not revealed any aneurysms or by vascular malformation. Neurologically stable. 02/14: Patient doing well this afternoon when seen. Has a headache that is better after medication. He has no other complaints. Repeat CT brain this morning with improvement. 02/15: Patient continues to do well. He denies any headache today. Transfer orders were written for a regular med/surg floor and he is waiting for a bed assignment. 02/16: 02/17: Patient awake & alert, sitting up in a chair when seen initially this morning. When seen later the patient was back in bed. He stated he was doing good although he did have a frontal headache. Therapy this morning got him up to the chair and then back to bed. (Erick Whitt) Labs, Micro, & Vital Signs Results Allergies Coded Allergies Type Severity Reaction Last Updated Verified Codeine Adverse Reaction Intermediate NAUSEA AND VOMITING 02/12/17 Yes Recent Impressions Head CT 02/17/17 1625 Signed Impressions: Service Date/Time: February 17:00 - CONCLUSION: Continued maturation of the subarachnoid hemorrhage. No hydrocephaly or new hemorrhage seen. Dony Knight Jr., MD //// 06:00 18:00 06:00 18:00 06:00 18:00 Intake Total 1645 ml 315 ml 700 ml 180 ml 1557 ml Output Total 612 ml 850 ml 1435 ml 0 ml 1600 ml Balance 1033 ml -535 ml -735 ml 180 ml -43 ml Intake Oral 400 ml 295 ml 700 ml 180 ml 1200 ml IV Total 1245 ml 20 ml 357 ml Output Urine Total 612 ml 850 ml 1435 ml 1600 ml Stool Total 0 ml 0 ml # Voids 1 # Bowel Movements 0 0 Laboratory Tests Test 02/16/17 02/16/17 02/17/17 02/17/17 13:20 19:45 03:19 17:32 Sodium Level 134 MEQ/L 132 MEQ/L 131 MEQ/L Potassium Level 3.5 MEQ/L 3.9 MEQ/L Chloride Level 95 MEQ/L 93 MEQ/L Carbon Dioxide Level 31.4 MEQ/L 28.7 MEQ/L Anion Gap 8 MEQ/L 10 MEQ/L Blood Urea Nitrogen 14 MG/DL 14 MG/DL Creatinine 0.95 MG/DL 0.80 MG/DL Estimat Glomerular Filtration 75 ML/MIN 91 ML/MIN Rate Random Glucose 120 MG/DL 128 MG/DL Calcium Level 9.0 MG/DL 9.0 MG/DL Total Creatine Kinase 229 U/L Urine Color YELLOW Urine Turbidity CLEAR Urine pH 6.0 Urine Specific [place] 1.014 Urine Protein NEG mg/dL Urine Glucose (UA) NEG mg/dL Urine Ketones NEG mg/dL Urine Occult Blood NEG Urine Nitrite NEG Urine Bilirubin NEG Urine Urobilinogen LESS THAN 2.0 MG/DL Urine Leukocyte Esterase NEG Urine RBC 1 /hpf Urine WBC LESS THAN 1 /hpf Microscopic Urinalysis Comment CULT NOT INDICATED White Blood Count 8.1 TH/MM3 Red Blood Count 4.73 MIL/MM3 Hemoglobin 13.9 GM/DL Hematocrit 40.4 % Mean Corpuscular Volume 85.4 FL Mean Corpuscular Hemoglobin 29.3 PG Mean Corpuscular Hemoglobin 34.4 % Concent Red Cell Distribution Width 13.7 % Platelet Count 251 TH/MM3 Mean Platelet Volume 7.4 FL Neutrophils (%) (Auto) 71.9 % Lymphocytes (%) (Auto) 15.8 % Monocytes (%) (Auto) 7.5 % Eosinophils (%) (Auto) 3.9 % Basophils (%) (Auto) 0.9 % Neutrophils # (Auto) 5.8 TH/MM3 Lymphocytes # (Auto) 1.3 TH/MM3 Monocytes # (Auto) 0.6 TH/MM3 Eosinophils # (Auto) 0.3 TH/MM3 Basophils # (Auto) 0.1 TH/MM3 CBC Comment DIFF FINAL Differential Comment Phosphorus Level 3.2 MG/DL Magnesium Level 2.0 MG/DL Albumin 3.4 GM/DL Test 02/18/17 02/18/17 04:15 04:19 Sodium Level 130 MEQ/L 129 MEQ/L Potassium Level 3.6 MEQ/L Chloride Level 92 MEQ/L Carbon Dioxide Level 30.2 MEQ/L Anion Gap 8 MEQ/L Blood Urea Nitrogen 17 MG/DL Creatinine 0.85 MG/DL Estimat Glomerular Filtration 85 ML/MIN Rate Random Glucose 116 MG/DL Calcium Level 9.0 MG/DL Phosphorus Level 2.8 MG/DL Magnesium Level 2.1 MG/DL Albumin 3.5 GM/DL White Blood Count 7.6 TH/MM3 Red Blood Count 5.02 MIL/MM3 Hemoglobin 14.4 GM/DL Hematocrit 42.9 % Mean Corpuscular Volume 85.6 FL Mean Corpuscular Hemoglobin 28.7 PG Mean Corpuscular Hemoglobin 33.5 % Concent Red Cell Distribution Width 13.5 % Platelet Count 214 TH/MM3 Mean Platelet Volume 7.2 FL Neutrophils (%) (Auto) 69.5 % Lymphocytes (%) (Auto) 16.9 % Monocytes (%) (Auto) 8.8 % Eosinophils (%) (Auto) 4.3 % Basophils (%) (Auto) 0.5 % Neutrophils # (Auto) 5.3 TH/MM3 Lymphocytes # (Auto) 1.3 TH/MM3 Monocytes # (Auto) 0.7 TH/MM3 Eosinophils # (Auto) 0.3 TH/MM3 Basophils # (Auto) 0.0 TH/MM3 CBC Comment DIFF FINAL Differential Comment Constitutional Vital Signs Date Time Temp Pulse Resp B/P Pulse Ox O2 Delivery O2 Flow Rate FiO2 02/18/17 10:00 82 02/18/17 09:35 95 21 02/18/17 08:00 98.0 70 18 130/57 100 02/18/17 08:00 70 02/18/17 07:30 17 02/18/17 07:00 96 Room Air 02/18/17 06:00 99 02/18/17 04:00 82 02/18/17 04:00 99.0 77 18 140/65 100 02/18/17 02:00 82 02/18/17 00:00 79 02/18/17 00:00 98.0 76 19 139/62 100 02/17/17 22:00 75 02/17/17 20:04 93 02/17/17 20:00 84 02/17/17 20:00 94 Room Air 02/17/17 20:00 99.0 76 16 153/87 97 02/17/17 18:00 78 02/17/17 16:00 100.6 80 21 146/63 96 02/17/17 16:00 92 02/17/17 14:00 82 02/17/17 12:00 86 02/17/17 12:00 98.7 99 21 146/67 94 02/18/17 07:00 Intake Total 1737 ml Output Total 1600 ml Balance 137 ml (Erick Whitt) Review of Systems/Exam ROS Constitutional: Denies any fevers or chills. Neuro: He has a mild frontal headache. Denies any dizziness, numbness or tingling. Resp: Denies any shortness of breath or productive cough. Cardiac: Denies any chest pain, palpitations or irregular heart beat. GI: Denies any abdominal pain, nausea, vomiting or bowel incontinence. : Denies any bladder incontinence. Extremities: Denies any pain or weakness. Exam General: Appears mildly uncomfortable. HEENT: Occipital scalp with resolving swelling. Minimal tenderness to palpation Resp: CTAB w/o W/R/R, equal excursion, non-laboured, on RA. CV: S1S2 w/RRR w/o M/G/R. Monitor is sinus rhythm w/o any ectopy noted. GI: Abdomen, soft, nontender, positive bowel sounds. Extremities: FERGUSON. Extremities normal w/o any evident discolouration. Neuro: AAOx3. Speech clear & appropriate although slightly slow in responding. Follows simple commands. Sensation grossly intact to light touch to all extremities. Motor strength 5/5 to all major flexion & extension muscle groups to extremities. (Erick Whitt) Medications Current Medications Current Medications Medications (Trade) Dose Ordered Sig/Abel Route Start Time Stop Time Status Last Admin (NS Flush) 2 ml BID IV FLUSH 02/13/17 09:00 02/18/17 09:00 (NS Flush) 2 ml UNSCH PRN IVF 02/12/17 21:15 (ZyrTEC) 10 mg DAILY PO 02/13/17 09:00 02/18/17 08:34 (CeleXA) 10 mg HS PO 02/13/17 21:00 02/17/17 20:59 (Flomax) 0.4 mg DAILY PO 02/13/17 09:00 02/18/17 08:34 (Protonix) 40 mg DAILY PO 02/13/17 09:00 02/18/17 08:34 (Pill Splitter) 1 ea UNSCH PRN OTHER 02/12/17 22:15 (Tylenol) 650 mg Q6H PRN PO 02/12/17 22:15 02/18/17 06:26 (Morphine Inj) 2 mg Q2H PRN IV 02/12/17 22:15 02/16/17 12:00 (Zofran Inj) 4 mg Q6H PRN IV 02/12/17 22:15 02/17/17 13:36 (Colace) 100 mg BID PO 02/13/17 09:00 02/18/17 08:34 (Senokot) 17.2 mg Q12H PRN PO 02/12/17 22:15 Miscellaneous Information 1 Q361D XX 02/12/17 22:15 (Chlorhexidine 2% Cloth) Taper DAILY@04 TOP 02/13/17 04:00 02/09/18 03:59 02/15/17 04:00 Chlorhexidine Gluconate 3 pack 3 pack UNSCH PRN TOP 02/12/17 22:15 (Cardene Inj/NS 250 ml Inj) 260 ml @ 0 mls/hr TITRATE IV 02/12/17 22:45 02/15/17 09:15 (Apresoline Inj) 20 mg Q4H PRN IV PUSH 02/14/17 17:00 02/16/17 17:25 (Trandate Inj) 20 mg Q4H PRN IV PUSH 02/14/17 17:00 (Catapres) 0.1 mg Q6H PRN PO 02/15/17 16:00 02/17/17 17:56 (Norvasc) 10 mg DAILY PO 02/16/17 09:00 02/18/17 08:34 (Cozaar) 50 mg DAILY PO 02/17/17 09:00 02/18/17 08:34 (Hydrodiuril) 25 mg DAILY PO 02/17/17 09:00 02/18/17 08:34 (Apresoline) 10 mg Q8HR PO 02/16/17 22:00 02/18/17 06:16 Metoprolol Succinate 75 mg 75 mg DAILY PO 02/17/17 09:00 02/18/17 08:34 (Sodium Chloride 23.4% Inj/NS 1000 ml Inj) 1,047 ml @ 20 mls/hr Q24H IV 02/17/17 17:00 02/17/17 18:05 (Erick Whitt) Medical Decision Making MDM Remarks Traumatic subarachnoid hemorrhage, improved on repeat CT brain . Neurologically intact. Risks for hydrocephalus and vasospasm Hyponatremia (Erick Whitt) Plan Plan Remarks Discussed plan of care with patient & his , no questions asked. No indication for neurosurgical intervention. Continue 2% saline at 20 mL/hr. Continue neuro checks. Repeat CT brain stat for any decrease in neuro status. May transfer to regular med/surg floor from NSGY's perspective. Mobilise patient w/assistance. PT & OT tx. Encourage patient to eat all meals. Will order protein shakes. Patient will need CTA brain/head next week. (Erick Whitt) Attending Statement I have personally seen and examined the patient on the date of this note. Pertinent documentation and study results have been reviewed by the undersigned. I have personally developed the treatment plan and performed medical decision making. Agree with findings, exam, and treatment plan as noted above. Patient sitting up in a chair this morning. He ate breakfast from home. Tolerating fluids better Physical therapy will continue to work with the patient. He is stable for transfer to regular floor from a neurosurgical standpoint. Family seems more amenable to discharge home over the next couple of days. (Jose Carlos Goode MD) Erick Whitt February 18, 2017 11:23 Jose Carlos Goode MD February 18, 2017 22:37
[2017-02-18] MEDS: ONDANSETRON HCL 4 MG/2 ML VIAL IV PRN (14:54)
[2017-02-18] MEDS: ACETAMINOPHEN/HYDROcodone 325 MG/5 MG TAB PO PRN ×2 (15:09→21:17)
--- NOTE | 2017-02-18 15:10 | HHI.PR ---
Subjective Remarks Patient seen and examined today around 12:40. He is laying in bed, states he just laid down form being in the recliner all morning. He states he feels ok, still not much of an appetite, he was able to eat some eggs his daughter brought in, and currently drinking a protein shake. He does say the food is not good here so that does not help. Denies any pain, chest pain, or sob. Objective Vitals Vital Signs Date Time Temp Pulse Resp B/P Pulse Ox O2 Delivery O2 Flow Rate FiO2 02/18/17 14:00 76 02/18/17 12:00 79 02/18/17 12:00 98.2 80 18 151/66 97 02/18/17 10:00 82 02/18/17 09:35 95 21 02/18/17 08:00 98.0 70 18 130/57 100 02/18/17 08:00 70 02/18/17 07:30 17 02/18/17 07:00 96 Room Air 02/18/17 06:00 99 02/18/17 04:00 82 02/18/17 04:00 99.0 77 18 140/65 100 02/18/17 02:00 82 02/18/17 00:00 79 02/18/17 00:00 98.0 76 19 139/62 100 02/17/17 22:00 75 02/17/17 20:04 93 02/17/17 20:00 84 02/17/17 20:00 94 Room Air 02/17/17 20:00 99.0 76 16 153/87 97 02/17/17 18:00 78 02/17/17 16:00 100.6 80 21 146/63 96 02/17/17 16:00 92 I/O 02/17/17 02/17/17 02/17/17 02/18/17 02/18/17 02/18/17 07:00 15:00 23:00 07:00 15:00 23:00 Intake Total 300 ml 180 ml 691 ml 866 ml 770 ml Output Total 650 ml 0 ml 800 ml 800 ml 550 ml Balance -350 ml 180 ml -109 ml 66 ml 220 ml Intake Oral 300 ml 180 ml 600 ml 600 ml 550 ml IV Total 91 ml 266 ml 220 ml Output Urine Total 650 ml 800 ml 800 ml 550 ml Stool Total 0 ml 0 ml # Voids 1 # Bowel Movements 0 Result Diagram: 02/18/17 0419 02/18/17 0419 Imaging Last Impressions Head CT 02/17/17 1625 Signed Impressions: Service Date/Time: February 17:00 - CONCLUSION: Continued maturation of the subarachnoid hemorrhage. No hydrocephaly or new hemorrhage seen. Dony Knight Jr., MD Head CTA 02/12/17 0000 Signed Impressions: Service Date/Time: Sunday, February 12, 2017 22:11 - CONCLUSION: Unremarkable study and the cause of the patient's subarachnoid hemorrhage is not identified. Apolinar Paniagua MD Chest X-Ray 02/12/17 0000 Signed Impressions: Service Date/Time: Sunday, February 12, 2017 21:51 - CONCLUSION: No acute cardiopulmonary disease. Apolinar Paniagua MD Objective Remarks GENERAL: patient laying in bed. Appears comfortable. Alert and oriented x3. SKIN: Warm and dry. HEAD: Normocephalic. EYES: No scleral icterus. No injection or drainage. pupils equal round and reactive to light NECK: Supple, trachea midline. No JVD. CARDIOVASCULAR: Regular rate and rhythm without murmurs, gallops, or rubs. RESPIRATORY: Breath sounds equal bilaterally. No accessory muscle use. GASTROINTESTINAL: Abdomen soft, non-tender, nondistended. MUSCULOSKELETAL: No cyanosis, or edema. Medications and IVs Current Medications Medications (Trade) Dose Ordered Sig/Abel Route Start Time Stop Time Status Last Admin (NS Flush) 2 ml BID IV FLUSH 02/13/17 09:00 02/18/17 09:00 (NS Flush) 2 ml UNSCH PRN IVF 02/12/17 21:15 (ZyrTEC) 10 mg DAILY PO 02/13/17 09:00 02/18/17 08:34 (CeleXA) 10 mg HS PO 02/13/17 21:00 02/17/17 20:59 (Flomax) 0.4 mg DAILY PO 02/13/17 09:00 02/18/17 08:34 (Protonix) 40 mg DAILY PO 02/13/17 09:00 02/18/17 08:34 (Pill Splitter) 1 ea UNSCH PRN OTHER 02/12/17 22:15 (Tylenol) 650 mg Q6H PRN PO 02/12/17 22:15 02/18/17 13:14 (Zofran Inj) 4 mg Q6H PRN IV 02/12/17 22:15 02/18/17 14:54 (Colace) 100 mg BID PO 02/13/17 09:00 02/18/17 08:34 (Senokot) 17.2 mg Q12H PRN PO 02/12/17 22:15 Miscellaneous Information 1 Q361D XX 02/12/17 22:15 (Chlorhexidine 2% Cloth) Taper DAILY@04 TOP 02/13/17 04:00 02/09/18 03:59 02/15/17 04:00 (Chlorhexidine 2% Cloth) 3 pack UNSCH PRN TOP 02/12/17 22:15 (Apresoline Inj) 20 mg Q4H PRN IV PUSH 02/14/17 17:00 02/16/17 17:25 (Trandate Inj) 20 mg Q4H PRN IV PUSH 02/14/17 17:00 (Catapres) 0.1 mg Q6H PRN PO 02/15/17 16:00 02/17/17 17:56 (Norvasc) 10 mg DAILY PO 02/16/17 09:00 02/18/17 08:34 (Cozaar) 50 mg DAILY PO 02/17/17 09:00 02/18/17 08:34 (Apresoline) 10 mg Q8HR PO 02/16/17 22:00 02/18/17 13:14 Metoprolol Succinate 75 mg 75 mg DAILY PO 02/17/17 09:00 02/18/17 08:34 (Sodium Chloride 23.4% Inj/NS 1000 ml Inj) 1,047 ml @ 20 mls/hr Q24H IV 02/17/17 17:00 02/17/17 18:05 ([place] 5-325 Mg) 1 tab Q6H PRN PO 02/18/17 15:00 UNV A/P Problem List: (1) Traumatic subarachnoid hemorrhage ICD Code: S06.6X9A Status: Acute (2) Fall ICD Code: W19.XXXA Status: Acute (3) CAD (coronary artery disease) ICD Code: I25.10 Status: Acute Assessment and Plan 02/18 patient improving. Cont 2% saline per neurology. Change diet to regular to help with appetite, add ensure. D/C hydrochlorothiazide due to low NA. Labs pending: cortisol, tSH,T4. Transfer to med surg. 02/17 Somnolent. Reorient, window blinds open during the day, lights off at night. Discussed with neurosurgeon, who is ordered CT scan. CT scan head shows further improvement. Hyponatremia puts patient at risk for cerebral edemafor which neurosurgery has ordered 2% saline. And close monitoring //Traumatic Subarachnoid hemorrhage after fall. -Neuro checks -Repeat CT with improvement -Blood pressure control -Appears to be improving on repeat CT 02/17 //Somnolence. This likely secondary to poor sleep in the hospital. Discussed with nursing. We'll keep window blinds open during the day, lights off at night //Hypernatremia. Treatment by neurosurgery to prevent cerebral edema. //Hypertension. need SBP<140 before DC. -02/15 blood pressure elevated. Discontinue fluids. Blood pressure medication adjusted. - Continue to monitor and Adjust blood pressure medications as needed. -02/16 Blood pressure elevated today. Patient denies any heavy drinking or with thrall. Adjusting medications to try and maintain systolic blood pressure below 140. //CAD s/p stent. -Hold aspirin -Continue beta lizette. //History of BPH. Continue tamsulosin //History of allergies. Continue Zyrtec. //History of depression. Continue Celexa //Prophylaxis. SCDs. Hold anticoagulation due to subarachnoid hemorrhage. Written by JOSE F Garsia acting as scribe for [Salbador] on 02/18/17 at 12: 43. Attending Statement This note was transcribed by scribe [JOSE F Garsia]. I, Dr. Vitor Siu personally performed the history, physical exam, and medical decision making; and confirmed the accuracy of the information in the transcribed note. Authenticated by Dr. Vitor Siu on 02/23/17 at 11:47. Mallory Mullins February 18, 2017 15:10 Vitor Siu MD February 23, 2017 11:48
[2017-02-18] MEDS: SODIUM CHLORIDE 23.4% INJ 188 MEQ in SODIUM CHLOR 0.9% 1000 ML INJ 1,000 ML IV SCH (18:50)
[2017-02-18] MEDS: CITALOPRAM HYDROBROMIDE 20 MG TAB PO SCH (21:11)
[2017-02-18] MEDS: NEOMYCIN/POLYMYX/DEXAMETH OPHT SUSP 5 ML BTL EACH EYE SCH (21:13)
[2017-02-18 21:14] LABS: FREE T4 1.21 NG/DL (0.76-1.46)
[2017-02-18] MEDS: SENNOSIDES 8.6 MG TAB PO PRN (21:17)
[2017-02-19] VITALS (8 sets, daily range): BP systolic 114–171; BP diastolic 53–70; PULSE 65–89; RESP 17–20; TEMP 96.8–98.6; O2SAT 91–96
[2017-02-19] MEDS: CHLORHEXIDINE GLUCONATE 2 % 1 PACK (2 CLOTHS) TOP SCH (04:00)
[2017-02-19] MEDS: hydrALAZINE HCL 10 MG TAB PO SCH ×3 (06:39→21:39)
[2017-02-19] MEDS: DOCUSATE SODIUM 100 MG CAP PO SCH ×2 (08:10→21:39)
[2017-02-19] MEDS: CETIRIZINE HCL 10 MG TAB PO SCH (08:10)
[2017-02-19] MEDS: TAMSULOSIN HCL 0.4 MG CAP PO SCH (08:10)
[2017-02-19] MEDS: METOPROLOL SUCCINATE 50 MG EXTENDED RELEASE TAB PO SCH (08:10)
[2017-02-19] MEDS: amLODIPine BESYLATE 5 MG TAB PO SCH (08:10)
[2017-02-19] MEDS: ACETAMINOPHEN 325 MG TAB PO PRN (08:10)
[2017-02-19] MEDS: NEOMYCIN/POLYMYX/DEXAMETH OPHT SUSP 5 ML BTL EACH EYE SCH ×2 (08:11→21:00)
[2017-02-19] MEDS: PANTOPRAZOLE SOD 40 MG DELAYED RELEASE TAB PO SCH (08:11)
[2017-02-19] MEDS: LOSARTAN 50 MG TAB PO SCH (08:11)
[2017-02-19] MEDS: SODIUM CHLORIDE 0.9% FLUSH 10 ML FLUSH IV FLUSH SCH ×2 (08:11→21:00)
--- NOTE | 2017-02-19 09:16 | HHI.PR ---
Objective Vitals Vital Signs Date Time Temp Pulse Resp B/P Pulse Ox O2 Delivery O2 Flow Rate FiO2 02/19/17 08:00 97.6 87 17 162/69 92 02/19/17 04:00 97.4 75 20 151/66 92 02/19/17 00:00 96.8 78 20 116/53 94 02/18/17 23:02 Room Air 02/18/17 20:00 99.6 83 20 120/60 94 02/18/17 18:08 98.1 73 18 119/58 96 02/18/17 16:39 16 02/18/17 16:00 68 02/18/17 16:00 98.1 67 16 104/52 95 02/18/17 14:00 76 02/18/17 14:00 99.7 81 22 119/72 100 02/18/17 12:00 79 02/18/17 12:00 98.2 80 18 151/66 97 02/18/17 10:00 82 02/18/17 09:35 95 21 I/O 02/18/17 02/18/17 02/18/17 02/19/17 02/19/17 02/19/17 07:00 15:00 23:00 07:00 15:00 23:00 Intake Total 866 ml 770 ml 743 ml 127 ml Output Total 800 ml 550 ml 200 ml 300 ml Balance 66 ml 220 ml 543 ml -173 ml Intake Oral 600 ml 550 ml 580 ml 60 ml IV Total 266 ml 220 ml 163 ml 67 ml Output Urine Total 800 ml 550 ml 200 ml 300 ml # Voids 1 1 # Bowel Movements 0 0 0 Result Diagram: 02/18/17 0419 02/19/17 0640 Imaging Last Impressions Head CT 02/17/17 1625 Signed Impressions: Service Date/Time: February 17:00 - CONCLUSION: Continued maturation of the subarachnoid hemorrhage. No hydrocephaly or new hemorrhage seen. Dony Knight Jr., MD Head CTA 02/12/17 0000 Signed Impressions: Service Date/Time: Sunday, February 12, 2017 22:11 - CONCLUSION: Unremarkable study and the cause of the patient's subarachnoid hemorrhage is not identified. Apolinar Paniagua MD Chest X-Ray 02/12/17 0000 Signed Impressions: Service Date/Time: Sunday, February 12, 2017 21:51 - CONCLUSION: No acute cardiopulmonary disease. Apolinar Paniagua MD Objective Remarks GENERAL: Patient laying in bed. Appears comfortable. Alert and oriented x3. SKIN: Warm and dry. HEAD: Normocephalic. EYES: No scleral icterus. No injection or drainage. pupils equal round and reactive to light NECK: Supple, trachea midline. No JVD. CARDIOVASCULAR: Regular rate and rhythm without murmurs, gallops, or rubs. RESPIRATORY: Breath sounds equal bilaterally. No accessory muscle use. GASTROINTESTINAL: Abdomen soft, non-tender, nondistended. MUSCULOSKELETAL: No cyanosis, or edema. 02/19 Na 130. Monitor Na level. Cortisol, TSH,T4 are normal. 02/18 patient improving. Cont 2% saline per neurology. Change diet to regular to help with appetite, add ensure. D/C hydrochlorothiazide due to low NA. Labs pending: cortisol, tSH,T4. Transfer to med surg. 02/17 Somnolent. Reorient, window blinds open during the day, lights off at night. Discussed with neurosurgeon, who is ordered CT scan. CT scan head shows further improvement. Hyponatremia puts patient at risk for cerebral edemafor which neurosurgery has ordered 2% saline. And close monitoring Traumatic Subarachnoid hemorrhage after fall. -Neuro checks -Repeat CT with improvement -Blood pressure control -Appears to be improving on repeat CT 02/17 Somnolence. This likely secondary to poor sleep in the hospital. Discussed with nursing. We'll keep window blinds open during the day, lights off at night Hypernatremia. Treatment by neurosurgery to prevent cerebral edema. Hypertension. need SBP<140 before DC. -5/2 blood pressure elevated. Discontinue fluids. Blood pressure medication adjusted. - Continue to monitor and Adjust blood pressure medications as needed. -5/3 Blood pressure elevated today. Patient denies any heavy drinking or with thrall. Adjusting medications to try and maintain systolic blood pressure below 140. CAD s/p stent. -Hold aspirin -Continue beta lizette. History of BPH. Continue tamsulosin History of allergies. Continue Zyrtec. History of depression. Continue Celexa DVT Prophylaxis. SCDs. Hold anticoagulation due to subarachnoid hemorrhage. Discussed with the patient. nurse A/P Problem List: (1) Traumatic subarachnoid hemorrhage ICD Code: S06.6X9A Status: Acute (2) Fall ICD Code: W19.XXXA Status: Acute (3) CAD (coronary artery disease) ICD Code: I25.10 Status: Acute Lima Miramontes MD February 19, 2017 09:16 Miscellaneous Information 1 Q361D XX 02/12/17 22:15 (Chlorhexidine 2% Cloth) Taper DAILY@04 TOP 02/13/17 04:00 02/09/18 03:59 02/15/17 04:00 (Chlorhexidine 2% Cloth) 3 pack UNSCH PRN TOP 02/12/17 22:15 (Apresoline Inj) 20 mg Q4H PRN IV PUSH 02/14/17 17:00 02/16/17 17:25 (Trandate Inj) 20 mg Q4H PRN IV PUSH 02/14/17 17:00 (Catapres) 0.1 mg Q6H PRN PO 02/15/17 16:00 02/17/17 17:56 (Norvasc) 10 mg DAILY PO 02/16/17 09:00 02/18/17 08:34 (Cozaar) 50 mg DAILY PO 02/17/17 09:00 02/18/17 08:34 (Apresoline) 10 mg Q8HR PO 02/16/17 22:00 02/18/17 13:14 Metoprolol Succinate 75 mg 75 mg DAILY PO 02/17/17 09:00 02/18/17 08:34 (Sodium Chloride 23.4% Inj/NS 1000 ml Inj) 1,047 ml @ 20 mls/hr Q24H IV 02/17/17 17:00 02/17/17 18:05 ([place] 5-325 Mg) 1 tab Q6H PRN PO 02/18/17 15:00 UNV Plan A/P Problem List: (1) Traumatic subarachnoid hemorrhage ICD Code: S06.6X9A Status: Acute (2) Fall ICD Code: W19.XXXA Status: Acute (3) CAD (coronary artery disease) ICD Code: I25.10 Status: Acute Assessment and Plan 02/19 02/18 patient improving. Cont 2% saline per neurology. Change diet to regular to help with appetite, add ensure. D/C hydrochlorothiazide due to low NA. Labs pending: cortisol, tSH,T4. Transfer to med surg. 5/4 Somnolent. Reorient, window blinds open during the day, lights off at night. Discussed with neurosurgeon, who is ordered CT scan. CT scan head shows further improvement. Hyponatremia puts patient at risk for cerebral edemafor which neurosurgery has ordered 2% saline. And close monitoring Traumatic Subarachnoid hemorrhage after fall. -Neuro checks -Repeat CT with improvement -Blood pressure control -Appears to be improving on repeat CT 5/4 Somnolence. This likely secondary to poor sleep in the hospital. Discussed with nursing. We'll keep window blinds open during the day, lights off at night Hypernatremia. Treatment by neurosurgery to prevent cerebral edema. Hypertension. need SBP<140 before DC. -5/2 blood pressure elevated. Discontinue fluids. Blood pressure medication adjusted. - Continue to monitor and Adjust blood pressure medications as needed. -5/3 Blood pressure elevated today. Patient denies any heavy drinking or with thrall. Adjusting medications to try and maintain systolic blood pressure below 140. CAD s/p stent. -Hold aspirin -Continue beta lizette. History of BPH. Continue tamsulosin History of allergies. Continue Zyrtec. History of depression. Continue Celexa DVT Prophylaxis. SCDs. Hold anticoagulation due to subarachnoid hemorrhage. A/P Problem List: (1) Traumatic subarachnoid hemorrhage ICD Code: S06.6X9A Status: Acute (2) Fall ICD Code: W19.XXXA Status: Acute (3) CAD (coronary artery disease) ICD Code: I25.10 Status: Acute Lima Miramontes MD February 19, 2017 09:16
[2017-02-19] MEDS: ACETAMINOPHEN/HYDROcodone 325 MG/5 MG TAB PO PRN ×2 (09:52→21:41)
--- NOTE | 2017-02-19 11:38 | HHI.NSPN ---
(Shannen Snow) Note Status Status: Progress Note (Shannen Snow) Interval History Interval History 86 year old transferred from [place] after HCT showed subarachnoid hemorrhage within the perimesencephalic cisterns. No evidence of hydrocephalus. Patient slipped and fell backwards over wet floor hitting the back of his head. + Headaches. No LOS and no weakness. +emesis. 02/13: CT angiogram did not revealed any aneurysms or by vascular malformation. Neurologically stable. 02/14: Patient doing well this afternoon when seen. Has a headache that is better after medication. He has no other complaints. Repeat CT brain this morning with improvement. 02/15: Patient continues to do well. He denies any headache today. Transfer orders were written for a regular med/surg floor and he is waiting for a bed assignment. 02/17: Patient awake & alert, sitting up in a chair when seen initially this morning. When seen later the patient was back in bed. He stated he was doing good although he did have a frontal headache. Therapy this morning got him up to the chair and then back to bed. 02/19: at bedside reports patient was improving a few days ago but today he is not doing well, he is complaining of increased pressure-like headaches. The pain medication has not been helping. She is requesting an MRI scan of the head. Mr. Yang denies focal weakness, no vomiting no seizures. Last head CT on 02/17 shows stable findings without evidence of hydrocephalus. (Shannen Snow) Labs, Micro, & Vital Signs Results Date Time Temp Pulse Resp B/P Pulse Ox O2 Delivery O2 Flow Rate FiO2 02/19/17 09:45 Room Air 02/19/17 08:00 97.6 87 17 162/69 92 02/19/17 04:00 97.4 75 20 151/66 92 02/19/17 00:00 96.8 78 20 116/53 94 02/18/17 23:02 Room Air 02/18/17 20:00 99.6 83 20 120/60 94 02/18/17 18:08 98.1 73 18 119/58 96 02/18/17 16:39 16 02/18/17 16:00 68 02/18/17 16:00 98.1 67 16 104/52 95 02/18/17 14:00 76 02/18/17 14:00 99.7 81 22 119/72 100 02/18/17 12:00 79 02/18/17 12:00 98.2 80 18 151/66 97 02/19/17 07:00 Intake Total 1640 ml Output Total 1050 ml Balance 590 ml Constitutional Vital Signs Date Time Temp Pulse Resp B/P Pulse Ox O2 Delivery O2 Flow Rate FiO2 02/19/17 09:45 Room Air 02/19/17 08:00 97.6 87 17 162/69 92 02/19/17 04:00 97.4 75 20 151/66 92 02/19/17 00:00 96.8 78 20 116/53 94 02/18/17 23:02 Room Air 02/18/17 20:00 99.6 83 20 120/60 94 02/18/17 18:08 98.1 73 18 119/58 96 02/18/17 16:39 16 02/18/17 16:00 68 02/18/17 16:00 98.1 67 16 104/52 95 02/18/17 14:00 76 02/18/17 14:00 99.7 81 22 119/72 100 02/18/17 12:00 79 02/18/17 12:00 98.2 80 18 151/66 97 02/19/17 07:00 Intake Total 1640 ml Output Total 1050 ml Balance 590 ml (Shannen Snow) Review of Systems/Exam Exam Awake, but appears uncomfortable with c/o headaches. Oriented 3. Follows commands. CN: Pupils equal, grossly EOMs intact. Facial motor symmetric. Motor: Moves all 4 extremities well and symmetrically Sensory intact to light touch 4 Cerebellar intact to finger to nose Plantars downgoing bilaterally (Shannen Snow) Medications Current Medications Current Medications Medications (Trade) Dose Ordered Sig/Abel Route PRN Reason Start Time Stop Time Status Last Admin Dose Admin Sodium Chloride (NS Flush) 2 ml BID IV FLUSH 02/13/17 09:00 02/19/17 08:11 Sodium Chloride (NS Flush) 2 ml UNSCH PRN IVF FLUSH AFTER USING IV ACCESS 02/12/17 21:15 Cetirizine HCl (ZyrTEC) 10 mg DAILY PO 02/13/17 09:00 02/19/17 08:10 Citalopram Hydrobromide (CeleXA) 10 mg HS PO 02/13/17 21:00 02/18/17 21:11 Tamsulosin HCl (Flomax) 0.4 mg DAILY PO 02/13/17 09:00 02/19/17 08:10 Pantoprazole Sodium (Protonix) 40 mg DAILY PO 02/13/17 09:00 02/19/17 08:11 Miscellaneous (Pill Splitter) 1 ea UNSCH PRN OTHER SEE LABEL COMMENTS 02/12/17 22:15 Acetaminophen (Tylenol) 650 mg Q6H PRN PO PAIN 1-10 AND/OR FEVER >101F 02/12/17 22:15 02/19/17 08:10 Ondansetron HCl (Zofran Inj) 4 mg Q6H PRN IV NAUSEA OR VOMITING 02/12/17 22:15 02/18/17 14:54 Docusate Sodium (Colace) 100 mg BID PO 02/13/17 09:00 02/19/17 08:10 Sennosides (Senokot) 17.2 mg Q12H PRN PO CONSTIPATION 02/12/17 22:15 02/18/17 21:17 Miscellaneous Information 1 Q361D XX 02/12/17 22:15 Chlorhexidine Gluconate (Chlorhexidine 2% Cloth) Taper DAILY@04 TOP 02/13/17 04:00 02/09/18 03:59 02/15/17 04:00 Chlorhexidine Gluconate (Chlorhexidine 2% Cloth) 3 pack UNSCH PRN TOP HYGIENIC CARE 02/12/17 22:15 Hydralazine HCl (Apresoline Inj) 20 mg Q4H PRN IV PUSH SYS BP GREATER THAN 150 MMHG 02/14/17 17:00 02/16/17 17:25 Labetalol HCl (Trandate Inj) 20 mg Q4H PRN IV PUSH BP>150/90 02/14/17 17:00 Clonidine (Catapres) 0.1 mg Q6H PRN PO SBP> OR = 180, DBP> OR = 100 02/15/17 16:00 02/17/17 17:56 Amlodipine Besylate (Norvasc) 10 mg DAILY PO 02/16/17 09:00 02/19/17 08:10 Losartan Potassium (Cozaar) 50 mg DAILY PO 02/17/17 09:00 02/19/17 08:11 Hydralazine HCl (Apresoline) 10 mg Q8HR PO 02/16/17 22:00 02/19/17 06:39 Metoprolol Succinate 75 mg 75 mg DAILY PO 02/17/17 09:00 02/19/17 08:10 Sodium Chloride/ Sodium Chloride (Sodium Chloride 23.4% Inj/NS 1000 ml Inj) 1,047 ml @ 20 mls/hr Q24H IV 02/17/17 17:00 02/17/17 18:05 Acetaminophen/ Hydrocodone Bitart ([place] 5-325 Mg) 1 tab Q6H PRN PO BREAKTHROUGH PAIN 02/18/17 15:00 02/19/17 09:52 Neomycin/ Polymyxin/ Dexamethasone (Maxitrol Opht Susp) 1 drop BID EACH EYE 02/18/17 21:00 03/20/17 09:01 02/19/17 08:11 (Shannen Snow) Medical Decision Making MDM Remarks 86-year-old male status post slip and fall hitting the back of his head CT head with traumatic subarachnoid hemorrhage (Shannen Snow) Plan Plan Remarks MRI Brain w/o contrast start trial of Neurontin 300 tid for VALLEJO's cont supportive care dw patient and regarding post-concussion syndrome (Shannen Snow) Attending Statement The exam, history, and the medical decision-making described in the above note were completed with the assistance of the mid-level provider. I reviewed and agree with the findings presented. I attest that I had a [id number] encounter with the patient on the same day, and personally performed and documented my assessment and findings in the medical record. (Hiro Jernigan MD) Shannen Snow February 19, 2017 11:38 Hiro Jernigan MD February 20, 2017 21:06
--- NOTE | 2017-02-19 11:50 | HHI.PR ---
Subjective Remarks Patient seen for f/u [facility]. 02/19/2017 - patient seen this morning. No acute events overnight. SBP up to the 160s. Other vitals WNL. Hiren c/o left-sided face pain starting this morning. Describes pain as "sharp" and "electric". He discussed earlier with neurosurgery this AM. They have ordered MRI brain and are doing trial on gabapentin. Patient has no other complaints this AM. No VALLEJO or vision change. No N/V. No new numbness or weakness in the extremities. No F/C. Objective Vitals Vital Signs Date Time Temp Pulse Resp B/P Pulse Ox O2 Delivery O2 Flow Rate FiO2 02/19/17 09:45 Room Air 02/19/17 08:00 97.6 87 17 162/69 92 02/19/17 04:00 97.4 75 20 151/66 92 02/19/17 00:00 96.8 78 20 116/53 94 02/18/17 23:02 Room Air 02/18/17 20:00 99.6 83 20 120/60 94 02/18/17 18:08 98.1 73 18 119/58 96 02/18/17 16:39 16 02/18/17 16:00 68 02/18/17 16:00 98.1 67 16 104/52 95 02/18/17 14:00 76 02/18/17 14:00 99.7 81 22 119/72 100 02/18/17 12:00 79 02/18/17 12:00 98.2 80 18 151/66 97 I/O 02/18/17 02/18/17 02/18/17 02/19/17 02/19/17 02/19/17 07:00 15:00 23:00 07:00 15:00 23:00 Intake Total 866 ml 770 ml 743 ml 127 ml Output Total 800 ml 550 ml 200 ml 300 ml Balance 66 ml 220 ml 543 ml -173 ml Intake Oral 600 ml 550 ml 580 ml 60 ml IV Total 266 ml 220 ml 163 ml 67 ml Output Urine Total 800 ml 550 ml 200 ml 300 ml # Voids 1 1 # Bowel Movements 0 0 0 Result Diagram: 02/18/17 0419 02/19/17 0640 Objective Remarks GENERAL: Patient laying in bed. Appears comfortable. Alert and oriented x3. SKIN: Warm and dry. HEAD: Normocephalic. EYES: No scleral icterus. No injection or drainage. pupils equal round and reactive to light. NECK: Supple, trachea midline. No JVD. CARDIOVASCULAR: Regular rate and rhythm without murmurs, gallops, or rubs. RESPIRATORY: Breath sounds equal bilaterally. No accessory muscle use. GASTROINTESTINAL: Abdomen soft, non-tender, nondistended. MUSCULOSKELETAL: No cyanosis, or edema. NEURO: A&Ox3. Sleepy this AM. Insight and judgement good. CN II-XII intact. NITHIN +FNF intact. Negative pronator drift. Grossly 5/5 UE and LE strength. Sensation intact to touch in face and extremities. Negative Babinski. A/P Problem List: (1) Traumatic subarachnoid hemorrhage ICD Code: S06.6X9A Status: Acute (2) Fall ICD Code: W19.XXXA Status: Acute (3) CAD (coronary artery disease) ICD Code: I25.10 Status: Acute Assessment and Plan Traumatic Subarachnoid hemorrhage after fall. 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 -trial on gabapentin -f/u MRI Somnolence. -Improving. This likely secondary to poor sleep in the hospital. Discussed with nursing yesterday. We'll keep window blinds open during the day, lights off at night. Hypernatremia. -sodium stable at 130. Treatment with hypertonic saline by neurosurgery to prevent cerebral edema. Hypertension. -Need SBP<140 before DC. -5/2 blood pressure elevated. Discontinue fluids. Blood pressure medication adjusted. - Continue to monitor and Adjust blood pressure medications as needed. -5/3 Blood pressure elevated today. Patient denies any heavy drinking or with thrall. Adjusting medications to try and maintain systolic blood pressure below 140. -5/7 SBP up to 160s. Will increase losartan to 100mg daily. CAD s/p stent. -Hold aspirin -Continue beta lizette. History of BPH. Continue tamsulosin History of allergies. Continue Zyrtec. History of depression. Continue Celexa DVT Prophylaxis. SCDs. Hold anticoagulation due to subarachnoid hemorrhage. Nicolás Brooke MD R3 February 19, 2017 11:50
--- NOTE | 2017-02-19 13:46 | RADRPT ---
EXAM DATE/TIME: 02/19/2017 13:12 [facility] COMPARISON: CT BRAIN W/O CONTRAST, February 13, 2017, 13:12. CT BRAIN W/O CONTRAST, February 17, 2017, 17:00. INDICATIONS : Cephalgia. Known subarachnoid hemorrhage which has been resolving. MEDICAL HISTORY : Hypertension. SURGICAL HISTORY : Coronary artery stent. Appendectomy. Discectomy, lumbar. ENCOUNTER: Initial ACUITY: 1 week PAIN SCORE: 5/10 LOCATION: cranial TECHNIQUE: Multiplanar, multisequence MRI of the brain was performed without contrast. FINDINGS: CEREBRUM: The ventricles are normal for age. No evidence of midline shift, mass lesion, or acute infarction. No extraaxial fluid collections are seen. There is mild residual subarachnoid hemorrhage at the base of the brain best seen on the flair weighted images. The pituitary gland and suprasellar cistern are normal in configuration. WHITE MATTER: The flow images there is increased signal in the periventricular white matter and in the deep white m atter. POSTERIOR FOSSA: The cerebellum and brainstem are intact. The 4th ventricle is midline. The cerebellopontine angle is unremarkable. The cerebellar tonsils are normal in position. DIFFUSION IMAGING: No focal areas of restricted diffusion are seen. No evidence of acute infarction. EXTRACRANIAL: The visualized portions of the orbits and paranasal sinuses are unremarkable. CONCLUSION: 1. Mild residual subarachnoid hemorrhage along the base of the brain. 2. Atrophy and findings characteristic of chronic small vessel ischemic change. 3. No acute hemorrhage or mass effect. Michael Ely MD on February 19, 2017 at 13:41 Board Certified Radiologist. This report was verified electronically.
[2017-02-19] MEDS: GABAPENTIN 300 MG CAP PO SCH ×2 (14:29→17:31)
[2017-02-19] MEDS: SODIUM CHLORIDE 23.4% INJ 188 MEQ in SODIUM CHLOR 0.9% 1000 ML INJ 1,000 ML IV SCH (17:32)
[2017-02-19] MEDS: CITALOPRAM HYDROBROMIDE 20 MG TAB PO SCH (21:39)
[2017-02-20] VITALS (7 sets, daily range): BP systolic 119–151; BP diastolic 55–65; PULSE 74–81; RESP 18–20; TEMP 96.8–98.9; O2SAT 91–93
[2017-02-20] MEDS: CHLORHEXIDINE GLUCONATE 2 % 1 PACK (2 CLOTHS) TOP SCH (04:00)
[2017-02-20] MEDS: hydrALAZINE HCL 10 MG TAB PO SCH ×3 (05:36→20:55)
[2017-02-20] MEDS: ACETAMINOPHEN/HYDROcodone 325 MG/5 MG TAB PO PRN (05:36)
[2017-02-20 07:58] LABS: AUTOMATED NEUTROPHIL # 4.9 TH/MM3 (1.8-7.7); BASOPHIL # 0.1 TH/MM3 (0-0.2); BASOPHIL % 0.9 % (0.0-2.0); EOSINOPHIL # 0.4 TH/MM3 (0-0.4); EOSINOPHIL % 5.6 % (0.0-4.0); HEMO FLAGS DIFF FINAL; LYMPH % 16.6 % (9.0-44.0); LYMPHOCYTE # 1.2 TH/MM3 (1.0-4.8); MEAN CELL VOLUME 84.9 FL (80.0-100.0); MEAN CORPUSCULAR HEMOGLOBIN 29.1 PG (27.0-34.0); MEAN CORPUSCULAR HGB CONC 34.2 % (32.0-36.0); MONO % 9.1 % (0.0-8.0); NEUT % 67.8 % (16.0-70.0); PLATELET COUNT 249 TH/MM3 (150-450); RED BLOOD COUNT 4.35 MIL/MM3 (4.50-5.90); RED CELL DISTRIBUTION WIDTH 13.2 % (11.6-17.2); WHITE BLOOD COUNT 7.2 TH/MM3 (4.0-11.0)
[2017-02-20 08:11] LABS: BICARBONATE 28.7 MEQ/L (21.0-32.0); POTASSIUM 3.5 MEQ/L (3.5-5.1)
[2017-02-20] MEDS: SENNOSIDES 8.6 MG TAB PO PRN (08:25)
[2017-02-20] MEDS: amLODIPine BESYLATE 5 MG TAB PO SCH (08:26)
[2017-02-20] MEDS: TAMSULOSIN HCL 0.4 MG CAP PO SCH (08:26)
[2017-02-20] MEDS: PANTOPRAZOLE SOD 40 MG DELAYED RELEASE TAB PO SCH (08:26)
[2017-02-20] MEDS: DOCUSATE SODIUM 100 MG CAP PO SCH ×2 (08:26→20:54)
[2017-02-20] MEDS: LOSARTAN 50 MG TAB PO SCH (08:27)
[2017-02-20] MEDS: METOPROLOL SUCCINATE 50 MG EXTENDED RELEASE TAB PO SCH (08:27)
[2017-02-20] MEDS: CETIRIZINE HCL 10 MG TAB PO SCH (08:27)
[2017-02-20] MEDS: NEOMYCIN/POLYMYX/DEXAMETH OPHT SUSP 5 ML BTL EACH EYE SCH ×2 (08:28→20:56)
[2017-02-20] MEDS: SODIUM CHLORIDE 0.9% FLUSH 10 ML FLUSH IV FLUSH SCH ×2 (08:28→20:56)
[2017-02-20] MEDS: GABAPENTIN 300 MG CAP PO SCH ×3 (08:28→18:00)
--- NOTE | 2017-02-20 11:14 | HHI.NSPN ---
(Shannen Snow) Note Status Status: Progress Note (Shannen Snow) Interval History Interval History 86 year old transferred from [place] after HCT showed subarachnoid hemorrhage within the perimesencephalic cisterns. No evidence of hydrocephalus. Patient slipped and fell backwards over wet floor hitting the back of his head. + Headaches. No LOS and no weakness. +emesis. 02/13: CT angiogram did not revealed any aneurysms or by vascular malformation. Neurologically stable. 02/14: Patient doing well this afternoon when seen. Has a headache that is better after medication. He has no other complaints. Repeat CT brain this morning with improvement. 02/15: Patient continues to do well. He denies any headache today. Transfer orders were written for a regular med/surg floor and he is waiting for a bed assignment. 02/17: Patient awake & alert, sitting up in a chair when seen initially this morning. When seen later the patient was back in bed. He stated he was doing good although he did have a frontal headache. Therapy this morning got him up to the chair and then back to bed. 02/19: at bedside reports patient was improving a few days ago but today he is not doing well, he is complaining of increased pressure-like headaches. The pain medication has not been helping. She is requesting an MRI scan of the head. Mr. Yang denies focal weakness, no vomiting no seizures. Last head CT on 02/17 shows stable findings without evidence of hydrocephalus. 02/20: did not tolerate Neurontin, now nj'ed. MRI Brain stable findings. per family, pt doing better this morning. (Shannen Snow) Labs, Micro, & Vital Signs Results Date Time Temp Pulse Resp B/P Pulse Ox O2 Delivery O2 Flow Rate FiO2 02/20/17 08:20 Room Air 02/20/17 08:00 96.8 76 18 131/61 92 02/20/17 04:00 96.9 77 18 140/55 92 02/20/17 00:00 98.6 81 18 119/59 92 02/19/17 20:20 96 21 02/19/17 20:00 97.3 89 18 171/70 91 02/19/17 18:38 70 02/19/17 16:00 98.6 73 17 157/69 94 02/19/17 12:00 98.6 65 17 114/59 93 02/20/17 06:59 Intake Total 480 ml Output Total 150 ml Balance 330 ml Constitutional Vital Signs Date Time Temp Pulse Resp B/P Pulse Ox O2 Delivery O2 Flow Rate FiO2 02/20/17 08:20 Room Air 02/20/17 08:00 96.8 76 18 131/61 92 02/20/17 04:00 96.9 77 18 140/55 92 02/20/17 00:00 98.6 81 18 119/59 92 02/19/17 20:20 96 21 02/19/17 20:00 97.3 89 18 171/70 91 02/19/17 18:38 70 02/19/17 16:00 98.6 73 17 157/69 94 02/19/17 12:00 98.6 65 17 114/59 93 02/20/17 06:59 Intake Total 480 ml Output Total 150 ml Balance 330 ml (Shannen Snow) Review of Systems/Exam Exam Awake, alert, appears more comfortable today. Oriented 3. Follows commands. CN: Pupils equal, grossly EOMs intact. Facial motor symmetric. Motor: Moves all 4 extremities well and symmetrically Sensory intact to light touch 4 Cerebellar intact to finger to nose Plantars downgoing bilaterally Neck: soft, supple (Shannen Snow) Medications Current Medications Current Medications Medications (Trade) Dose Ordered Sig/Abel Route PRN Reason Start Time Stop Time Status Last Admin Dose Admin Sodium Chloride (NS Flush) 2 ml BID IV FLUSH 02/13/17 09:00 02/19/17 21:00 Sodium Chloride (NS Flush) 2 ml UNSCH PRN IVF FLUSH AFTER USING IV ACCESS 02/12/17 21:15 Cetirizine HCl (ZyrTEC) 10 mg DAILY PO 02/13/17 09:00 02/20/17 08:27 Citalopram Hydrobromide (CeleXA) 10 mg HS PO 02/13/17 21:00 02/19/17 21:39 Tamsulosin HCl (Flomax) 0.4 mg DAILY PO 02/13/17 09:00 02/20/17 08:26 Pantoprazole Sodium (Protonix) 40 mg DAILY PO 02/13/17 09:00 02/20/17 08:26 Miscellaneous (Pill Splitter) 1 ea UNSCH PRN OTHER SEE LABEL COMMENTS 02/12/17 22:15 Acetaminophen (Tylenol) 650 mg Q6H PRN PO PAIN 1-10 AND/OR FEVER >101F 02/12/17 22:15 02/19/17 08:10 Ondansetron HCl (Zofran Inj) 4 mg Q6H PRN IV NAUSEA OR VOMITING 02/12/17 22:15 02/18/17 14:54 Docusate Sodium (Colace) 100 mg BID PO 02/13/17 09:00 02/20/17 08:26 Sennosides (Senokot) 17.2 mg Q12H PRN PO CONSTIPATION 02/12/17 22:15 02/20/17 08:25 Miscellaneous Information 1 Q361D XX 02/12/17 22:15 Chlorhexidine Gluconate (Chlorhexidine 2% Cloth) Taper DAILY@04 TOP 02/13/17 04:00 02/09/18 03:59 02/15/17 04:00 Chlorhexidine Gluconate (Chlorhexidine 2% Cloth) 3 pack UNSCH PRN TOP HYGIENIC CARE 02/12/17 22:15 Hydralazine HCl (Apresoline Inj) 20 mg Q4H PRN IV PUSH SYS BP GREATER THAN 150 MMHG 02/14/17 17:00 02/16/17 17:25 Labetalol HCl (Trandate Inj) 20 mg Q4H PRN IV PUSH BP>150/90 02/14/17 17:00 Clonidine (Catapres) 0.1 mg Q6H PRN PO SBP> OR = 180, DBP> OR = 100 02/15/17 16:00 02/17/17 17:56 Amlodipine Besylate (Norvasc) 10 mg DAILY PO 02/16/17 09:00 02/20/17 08:26 Hydralazine HCl (Apresoline) 10 mg Q8HR PO 02/16/17 22:00 02/20/17 05:36 Metoprolol Succinate 75 mg 75 mg DAILY PO 02/17/17 09:00 02/20/17 08:27 Sodium Chloride/ Sodium Chloride (Sodium Chloride 23.4% Inj/NS 1000 ml Inj) 1,047 ml @ 20 mls/hr Q24H IV 02/17/17 17:00 02/19/17 17:32 Acetaminophen/ Hydrocodone Bitart ([place] 5-325 Mg) 1 tab Q6H PRN PO BREAKTHROUGH PAIN 02/18/17 15:00 02/20/17 05:36 Neomycin/ Polymyxin/ Dexamethasone (Maxitrol Opht Susp) 1 drop BID EACH EYE 02/18/17 21:00 03/20/17 09:01 02/20/17 08:28 Gabapentin (Neurontin) 300 mg TID PO 02/19/17 13:00 02/19/17 14:29 Losartan Potassium (Cozaar) 100 mg DAILY PO 02/20/17 09:00 02/20/17 08:27 (Shannen Snow) Medical Decision Making MDM Remarks 86-year-old male status post slip and fall hitting the back of his head CT head with traumatic subarachnoid hemorrhage, stable MRI Brain (Shannen Snow) Plan Plan Remarks clinically better today, cont supportive care cont medical mgt (Shannen Snow) Attending Statement The exam, history, and the medical decision-making described in the above note were completed with the assistance of the mid-level provider. I reviewed and agree with the findings presented. I attest that I had a [id number] encounter with the patient on the same day, and personally performed and documented my assessment and findings in the medical record. (Hiro Jernigan MD) Shannen Snow February 20, 2017 11:14 Hiro Jernigan MD February 20, 2017 21:35
--- NOTE | 2017-02-20 11:27 | HHI.PR ---
Subjective Remarks No acute events overnight. Afebrile. Hypertensive to 171/70 last night. Patient reports his headache is much improved from yesterday. He states he continues to have left-sided facial pain. Objective Vitals Vital Signs Date Time Temp Pulse Resp B/P Pulse Ox O2 Delivery O2 Flow Rate FiO2 02/20/17 08:20 Room Air 02/20/17 08:00 96.8 76 18 131/61 92 02/20/17 04:00 96.9 77 18 140/55 92 02/20/17 00:00 98.6 81 18 119/59 92 02/19/17 20:20 96 21 02/19/17 20:00 97.3 89 18 171/70 91 02/19/17 18:38 70 02/19/17 16:00 98.6 73 17 157/69 94 02/19/17 12:00 98.6 65 17 114/59 93 I/O 02/19/17 02/19/17 02/19/17 02/20/17 02/20/17 02/20/17 07:00 15:00 23:00 07:00 15:00 23:00 Intake Total 127 ml 480 ml Output Total 300 ml 150 ml Balance -173 ml 330 ml Intake Oral 60 ml 480 ml IV Total 67 ml Output Urine Total 300 ml 150 ml # Voids 1 4 # Bowel Movements 0 0 Result Diagram: 02/20/17 0650 02/20/17 0650 Imaging Last Impressions Brain MRI 02/19/17 0000 Signed Impressions: Service Date/Time: Sunday, February 19, 2017 13:12 - CONCLUSION: 1. Mild residual subarachnoid hemorrhage along the base of the brain. 2. Atrophy and findings characteristic of chronic small vessel ischemic change. 3. No acute hemorrhage or mass effect. Michael Ely MD Head CT 02/17/17 1625 Signed Impressions: Service Date/Time: February 17:00 - CONCLUSION: Continued maturation of the subarachnoid hemorrhage. No hydrocephaly or new hemorrhage seen. Dony Knight Jr., MD Head CTA 02/12/17 0000 Signed Impressions: Service Date/Time: Sunday, February 12, 2017 22:11 - CONCLUSION: Unremarkable study and the cause of the patient's subarachnoid hemorrhage is not identified. Apolinar Paniagua MD Chest X-Ray 02/12/17 0000 Signed Impressions: Service Date/Time: Sunday, February 12, 2017 21:51 - CONCLUSION: No acute cardiopulmonary disease. Apolinar Paniagua MD Objective Remarks GENERAL: Patient laying in bed. Appears comfortable. Alert and oriented x3. SKIN: Warm and dry. HEAD: Normocephalic. EYES: No scleral icterus. No injection or drainage. pupils equal round and reactive to light. NECK: Supple, trachea midline. No JVD. CARDIOVASCULAR: Regular rate and rhythm without murmurs, gallops, or rubs. RESPIRATORY: Breath sounds equal bilaterally. No accessory muscle use. GASTROINTESTINAL: Abdomen soft, non-tender, nondistended. MUSCULOSKELETAL: No cyanosis, or edema. NEURO: A&Ox3. Insight and judgement good. CN II-XII intact. NITHIN +FNF intact. Negative pronator drift. Grossly 5/5 UE and LE strength. Sensation intact to touch in face and extremities. Negative Babinski. A/P Problem List: (1) Traumatic subarachnoid hemorrhage ICD Code: S06.6X9A Status: Acute (2) Fall ICD Code: W19.XXXA Status: Acute (3) CAD (coronary artery disease) ICD Code: I25.10 Status: Acute Assessment and Plan Traumatic Subarachnoid hemorrhage after fall. 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 -trial on gabapentin, patient was unable to tolerate this medication, now DC'd -MRI showed mild residual subarachnoid hemorrhage Somnolence. -Resolved Hypernatremia. -sodium stable at 130. Treatment with hypertonic saline by neurosurgery to prevent cerebral edema. -Follow daily BMPs Hypertension. -Need SBP<140 before DC. -5/2 blood pressure elevated. Discontinue fluids. Blood pressure medication adjusted. - Continue to monitor and Adjust blood pressure medications as needed. -5/3 Blood pressure elevated today. Patient denies any heavy drinking or with thrall. Adjusting medications to try and maintain systolic blood pressure below 140. -5/7 SBP up to 170s. Will increase losartan to 100mg daily. CAD s/p stent. -Hold aspirin -Continue beta lizette. History of BPH. Continue tamsulosin History of allergies. Continue Zyrtec. History of depression. Continue Celexa DVT Prophylaxis. SCDs. Hold anticoagulation due to subarachnoid hemorrhage. Mini Pérez MD R3 February 20, 2017 11:27
[2017-02-20] MEDS: ACETAMINOPHEN 325 MG TAB PO PRN ×2 (13:42→20:55)
[2017-02-20] MEDS: SODIUM CHLORIDE 23.4% INJ 188 MEQ in SODIUM CHLOR 0.9% 1000 ML INJ 1,000 ML IV SCH (17:00)
[2017-02-20] MEDS: CITALOPRAM HYDROBROMIDE 20 MG TAB PO SCH (20:54)
[2017-02-21 04:00] VITALS: BP 139/62; PULSE 74; RESP 18; TEMP 98; O2SAT 93
[2017-02-21] MEDS: CHLORHEXIDINE GLUCONATE 2 % 1 PACK (2 CLOTHS) TOP SCH (04:00)
[2017-02-21] MEDS: hydrALAZINE HCL 10 MG TAB PO SCH ×2 (06:46→13:38)
[2017-02-21] MEDS: ACETAMINOPHEN 325 MG TAB PO PRN ×2 (06:46→14:30)
[2017-02-21 07:47] LABS: BICARBONATE 28.7 MEQ/L (21.0-32.0); POTASSIUM 3.7 MEQ/L (3.5-5.1)
[2017-02-21 08:18] VITALS: BP 149/65; PULSE 81; RESP 20; TEMP 99.3; O2SAT 93
[2017-02-21] MEDS: CETIRIZINE HCL 10 MG TAB PO SCH (08:35)
[2017-02-21] MEDS: amLODIPine BESYLATE 5 MG TAB PO SCH (08:35)
[2017-02-21] MEDS: DOCUSATE SODIUM 100 MG CAP PO SCH ×2 (08:35→20:55)
[2017-02-21] MEDS: PANTOPRAZOLE SOD 40 MG DELAYED RELEASE TAB PO SCH (08:35)
[2017-02-21] MEDS: GABAPENTIN 300 MG CAP PO SCH ×2 (08:36→12:55)
[2017-02-21] MEDS: METOPROLOL SUCCINATE 50 MG EXTENDED RELEASE TAB PO SCH (08:36)
[2017-02-21] MEDS: TAMSULOSIN HCL 0.4 MG CAP PO SCH (08:36)
[2017-02-21] MEDS: LOSARTAN 50 MG TAB PO SCH (08:36)
[2017-02-21] MEDS: NEOMYCIN/POLYMYX/DEXAMETH OPHT SUSP 5 ML BTL EACH EYE SCH ×2 (08:37→20:56)
[2017-02-21] MEDS: SODIUM CHLORIDE 0.9% FLUSH 10 ML FLUSH IV FLUSH SCH ×2 (08:40→20:56)
[2017-02-21 13:02] VITALS: BP 131/72; PULSE 75; RESP 20; TEMP 96.8; O2SAT 93
--- NOTE | 2017-02-21 13:14 | HHI.NSPN ---
(Erick WhittWatson KOHLER) Note Status Status: Progress Note (Erick Whitt) Interval History Interval History 02/12: 86 year old transferred from [place] after HCT showed subarachnoid hemorrhage within the perimesencephalic cisterns. No evidence of hydrocephalus. Patient slipped and fell backwards over wet floor hitting the back of his head. + Headaches. No LOS and no weakness. +emesis. 02/13: CT angiogram did not revealed any aneurysms or by vascular malformation. Neurologically stable. 02/14: Patient doing well this afternoon when seen. Has a headache that is better after medication. He has no other complaints. Repeat CT brain this morning with improvement. 02/15: Patient continues to do well. He denies any headache today. Transfer orders were written for a regular med/surg floor and he is waiting for a bed assignment. 02/17: Patient states that his headache is about the same as usual for the past few days. His family has been concerned today that the headache is not going away. He apparently also has not been quite as alert today and not been eating very well with some nausea earlier today. He has no complaint of dizziness or vertigo. Presently no nausea. He does not feel confused. 02/18: Patient awake & alert, sitting up in a chair when seen initially this morning. When seen later the patient was back in bed. He stated he was doing good although he did have a frontal headache. Therapy this morning got him up to the chair and then back to bed. 02/19: at bedside reports patient was improving a few days ago but today he is not doing well, he is complaining of increased pressure-like headaches. The pain medication has not been helping. She is requesting an MRI scan of the head. Mr. Yang denies focal weakness, no vomiting no seizures. Last head CT on 02/17 shows stable findings without evidence of hydrocephalus. 02/20: did not tolerate Neurontin, now dc'ed. MRI Brain stable findings. per family, pt doing better this morning. 02/21: Patient is seen as Therapy finishes working with him. Therapy notes that the patient is more unsteady than when he was last seen on 02/18. The patient does feel dizzy when he gets up. He also has a shooting pain to the left side of the face which feels like when he had shingles several years ago. His and daughter are concerned because he is hallucinating. They think he might be on to much medication, especially blood pressure meds since his pressure was high a few days ago. They do not want him to go to rehab until the medication issue is resolved. It was recommended by this practitioner to discuss their concerns with Dr Pandey who is the Attending Hospitalist at this time. ( Erick Whitt) Labs, Micro, & Vital Signs Results Allergies Coded Allergies Type Severity Reaction Last Updated Verified Codeine Adverse Reaction Intermediate NAUSEA AND VOMITING 02/12/17 Yes Recent Impressions Brain MRI 02/19/17 0000 Signed Impressions: Service Date/Time: Sunday, February 19, 2017 13:12 - CONCLUSION: 1. Mild residual subarachnoid hemorrhage along the base of the brain. 2. Atrophy and findings characteristic of chronic small vessel ischemic change. 3. No acute hemorrhage or mass effect. Michael Ely MD //175///// 06:00 18:00 06:00 18:00 06:00 18:00 Intake Total 870 ml 480 ml 480 ml Output Total 500 ml 150 ml Balance 370 ml 330 ml 480 ml Intake Oral 640 ml 480 ml 480 ml IV Total 230 ml Output Urine Total 500 ml 150 ml # Voids 2 4 3 6 # Bowel Movements 0 0 0 Laboratory Tests Test 02/18/17 02/19/17 02/20/17 02/21/17 20:17 06:40 06:50 06:55 Sodium Level 130 MEQ/L 130 MEQ/L 130 MEQ/L 133 MEQ/L Free Thyroxine 1.21 NG/DL Total Triiodothyronine 74 NG/DL Thyroid Stimulating Hormone 2.870 uIU/ML 3rd Gen Random Cortisol 16.6 MCG/DL White Blood Count 7.2 TH/MM3 Red Blood Count 4.35 MIL/MM3 Hemoglobin 12.7 GM/DL Hematocrit 37.0 % Mean Corpuscular Volume 84.9 FL Mean Corpuscular Hemoglobin 29.1 PG Mean Corpuscular Hemoglobin 34.2 % Concent Red Cell Distribution Width 13.2 % Platelet Count 249 TH/MM3 Mean Platelet Volume 7.5 FL Neutrophils (%) (Auto) 67.8 % Lymphocytes (%) (Auto) 16.6 % Monocytes (%) (Auto) 9.1 % Eosinophils (%) (Auto) 5.6 % Basophils (%) (Auto) 0.9 % Neutrophils # (Auto) 4.9 TH/MM3 Lymphocytes # (Auto) 1.2 TH/MM3 Monocytes # (Auto) 0.7 TH/MM3 Eosinophils # (Auto) 0.4 TH/MM3 Basophils # (Auto) 0.1 TH/MM3 CBC Comment DIFF FINAL Differential Comment Potassium Level 3.5 MEQ/L 3.7 MEQ/L Chloride Level 92 MEQ/L 95 MEQ/L Carbon Dioxide Level 28.7 MEQ/L 28.7 MEQ/L Anion Gap 9 MEQ/L 9 MEQ/L Blood Urea Nitrogen 23 MG/DL 22 MG/DL Creatinine 0.81 MG/DL 0.76 MG/DL Estimat Glomerular Filtration 90 ML/MIN 97 ML/MIN Rate Random Glucose 117 MG/DL 118 MG/DL Calcium Level 8.5 MG/DL 8.5 MG/DL Constitutional Vital Signs Date Time Temp Pulse Resp B/P Pulse Ox O2 Delivery O2 Flow Rate FiO2 02/21/17 08:18 99.3 81 20 149/65 93 02/21/17 04:00 98.0 74 18 139/62 93 02/20/17 23:02 98.4 80 20 151/64 92 02/20/17 21:53 93 21 02/20/17 16:00 98.9 76 18 140/65 91 02/20/17 13:00 21 02/21/17 07:00 Intake Total 480 ml Balance 480 ml (Erick Whitt) Review of Systems/Exam ROS Constitutional: He denies any fevers or chills. Neuro: He has had a mild headache. He also endorses dizziness when he gets up. He denies any numbness or tingling. Resp: He denies any shortness of breath or productive cough. Cardiac: He denies any chest pain, palpitations or irregular heart beat. GI: His states he is not eating or drinking much. He denies any abdominal pain, nausea, vomiting or bowel incontinence. : He denies any bladder incontinence. Extremities: He denies any pain or weakness. Psych: His states he is hallucinating. Exam General: NAD. HEENT: Occipital scalp with resolved swelling, NTTP. Resp: CTAB w/o W/R/R, equal excursion, non-laboured, on RA. CV: S1S2 w/RRR w/o M/G/R. GI: Abdomen, soft, nontender, positive bowel sounds. Extremities: FERGUSON. Extremities normal w/o any evident deformity or discolouration. Neuro: AAOx3. Speech clear & appropriate although slightly slow in responding. Follows simple commands. Sensation grossly intact to light touch to all extremities. Motor strength 5/5 to all major flexion & extension muscle groups to extremities. (Erick Whitt) Medications Current Medications Current Medications Medications (Trade) Dose Ordered Sig/Abel Route Start Time Stop Time Status Last Admin (NS Flush) 2 ml BID IV FLUSH 02/13/17 09:00 02/21/17 08:40 (NS Flush) 2 ml UNSCH PRN IVF 02/12/17 21:15 (ZyrTEC) 10 mg DAILY PO 02/13/17 09:00 02/21/17 08:35 (CeleXA) 10 mg HS PO 02/13/17 21:00 02/20/17 20:54 (Flomax) 0.4 mg DAILY PO 02/13/17 09:00 02/21/17 08:36 (Protonix) 40 mg DAILY PO 02/13/17 09:00 02/21/17 08:35 (Pill Splitter) 1 ea UNSCH PRN OTHER 02/12/17 22:15 (Tylenol) 650 mg Q6H PRN PO 02/12/17 22:15 02/21/17 06:46 (Zofran Inj) 4 mg Q6H PRN IV 02/12/17 22:15 02/18/17 14:54 (Colace) 100 mg BID PO 02/13/17 09:00 02/21/17 08:35 (Senokot) 17.2 mg Q12H PRN PO 02/12/17 22:15 02/20/17 08:25 Miscellaneous Information 1 Q361D XX 02/12/17 22:15 (Chlorhexidine 2% Cloth) Taper DAILY@04 TOP 02/13/17 04:00 02/09/18 03:59 02/15/17 04:00 (Chlorhexidine 2% Cloth) 3 pack UNSCH PRN TOP 02/12/17 22:15 (Apresoline Inj) 20 mg Q4H PRN IV PUSH 02/14/17 17:00 02/16/17 17:25 (Trandate Inj) 20 mg Q4H PRN IV PUSH 02/14/17 17:00 (Catapres) 0.1 mg Q6H PRN PO 02/15/17 16:00 02/17/17 17:56 (Norvasc) 10 mg DAILY PO 02/16/17 09:00 02/21/17 08:35 (Apresoline) 10 mg Q8HR PO 02/16/17 22:00 02/21/17 06:46 Metoprolol Succinate 75 mg 75 mg DAILY PO 02/17/17 09:00 02/21/17 08:36 (Sodium Chloride 23.4% Inj/NS 1000 ml Inj) 1,047 ml @ 20 mls/hr Q24H IV 02/17/17 17:00 02/19/17 17:32 ([place] 5-325 Mg) 1 tab Q6H PRN PO 02/18/17 15:00 02/20/17 05:36 (Maxitrol Opht Susp) 1 drop BID EACH EYE 02/18/17 21:00 03/20/17 09:01 02/21/17 08:37 (Neurontin) 300 mg TID PO 02/19/17 13:00 02/19/17 14:29 (Cozaar) 100 mg DAILY PO 02/20/17 09:00 02/21/17 08:36 (Erick Whitt) Medical Decision Making MDM Remarks Traumatic subarachnoid hemorrhage, continued maturation on repeat CT brain 02/17 & MRI . Neurologically intact, some dizziness with getting up At risk for hydrocephalus and vasospasm Hyponatremia Family reports hallucinating (Erick Whitt) Plan Plan Remarks Discussed plan of care with patient & family, questions answered. No indication for neurosurgical intervention. Continue to correct sodium with 2% saline at 20 mL/hr. Continue neuro checks. Repeat CT brain stat for any decrease in neuro status. Mobilise patient w/assistance. PT & OT tx. Encourage patient to eat all meals. Patient will need CTA brain/head this week. Recommend patient go to inpatient rehab (Erick Whitt) Attending Statement I have personally seen and examined the patient on the date of this note. Pertinent documentation and study results have been reviewed by the undersigned. I have personally developed the treatment plan and performed medical decision making. Agree with findings, exam, and treatment plan as noted above. The patient remains mildly confused today but generally seems improved compared to last week. His family is in the room with him during the examination this morning. His physical therapy is also in the room with him and has just completed therapy. He states that the patient has a persistent very unsteady gait, tending to fall backwards when using a walker. MRI of 02/19/17 images reviewed and are mostly unremarkable, some mild persistent subarachnoid blood, no significant hydrocephalus, evidence of CVA, parenchymal hemorrhage or mass effect. Discussed at length with the patient and family. We will go ahead and check a CT angiogram to make certain that he does not have a aneurysm missed on the initial study. I have otherwise recommended to the patient and his that he go to inpatient rehabilitation. His although reluctant, is in agreement, but would like him closer to their [place] in [facility]. Physical therapy agrees that the patient would be safer at this point and a inpatient facility for additional therapy. (Jose Carlos Goode MD) Erick Whitt February 21, 2017 13:14 Jose Carlos Goode MD February 21, 2017 19:56
[2017-02-21] MEDS: SODIUM CHLOR 0.9% 1000 ML INJ 1,000 ML IV SCH (14:15)
--- NOTE | 2017-02-21 14:21 | HHI.PR ---
Subjective Remarks Follow-up for hallucinations Patient has been having visual hallucinations especially when he closes his eyes. No auditory hallucinations, no new focal deficits. Denies any headache, nausea or vomiting. Objective Vitals Vital Signs Date Time Temp Pulse Resp B/P Pulse Ox O2 Delivery O2 Flow Rate FiO2 02/21/17 13:02 96.8 75 20 131/72 93 02/21/17 08:18 99.3 81 20 149/65 93 02/21/17 04:00 98.0 74 18 139/62 93 02/20/17 23:02 98.4 80 20 151/64 92 02/20/17 21:53 93 21 02/20/17 16:00 98.9 76 18 140/65 91 I/O 02/20/17 02/20/17 02/20/17 02/21/17 02/21/17 02/21/17 07:00 15:00 23:00 07:00 15:00 23:00 Intake Total 480 ml Balance 480 ml Intake Oral 480 ml # Voids 4 3 6 # Bowel Movements 0 Result Diagram: 02/20/17 0650 02/21/17 0655 Objective Remarks GENERAL: Patient laying in bed. Appears comfortable. Alert and oriented x3. SKIN: Warm and dry. HEAD: Normocephalic. Dry cough. NECK: Supple, trachea midline. No JVD. CARDIOVASCULAR: Regular rate and rhythm without murmurs, gallops, or rubs. RESPIRATORY: Breath sounds equal bilaterally. No accessory muscle use. GASTROINTESTINAL: Abdomen soft, non-tender, nondistended. MUSCULOSKELETAL: No cyanosis, or edema. NEURO: A&Ox3. Insight and judgement good. CN II-XII intact. No focal deficits, muscle strength testing 5 over 5 all 4 extremities. A/P Problem List: (1) Traumatic subarachnoid hemorrhage ICD Code: S06.6X9A Status: Acute (2) Fall ICD Code: W19.XXXA Status: Acute (3) CAD (coronary artery disease) ICD Code: I25.10 Status: Acute Assessment and Plan Traumatic Subarachnoid hemorrhage after fall. -Neuro checks -Repeat CT with improvement -Blood pressure control -Appears to be improving on repeat CT 02/17, with a repeat CT scan one week from now. Repeat MRI showed stable traumatic subarachnoid hemorrhage Hallucinations/acute delirium-likely drug induced, stop Celexa, stop Neurontin. Stop clonidine. Monitor. Could also be postconcussion syndrome. Monitor overnight. 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 Stop Neurontin. Somnolence. -Resolved Hypernatremia. -sodium stable at 133, status post hypertonic saline. Recheck BMP tomorrow. Hypertension. -Need SBP<140 before DC. Continue losartan, Norvasc, metoprolol.. Blood pressure improving, increase hydralazine CAD s/p stent. -Hold aspirin -Continue beta lizette. History of BPH. Continue tamsulosin History of allergies. Continue Zyrtec. History of depression. Continue Celexa DVT Prophylaxis. SCDs. Hold anticoagulation due to subarachnoid hemorrhage. Discussed with family Ezra Vanegas MD February 21, 2017 14:21
[2017-02-21 17:09] VITALS: BP 156/69; PULSE 85; RESP 18; TEMP 95.3; O2SAT 94
[2017-02-21 19:05] VITALS: O2SAT 94; O2SAT 98
[2017-02-21 21:52] VITALS: BP 190/80; PULSE 91; RESP 20; TEMP 98.4; O2SAT 91
[2017-02-21] MEDS ORDERED: hydrALAZINE HCL 10 MG TAB PO SCH (22:00)
[2017-02-22] VITALS: BP 171/53; PULSE 94; RESP 18; TEMP 98.3; O2SAT 94
[2017-02-22] MEDS: SODIUM CHLOR 0.9% 1000 ML INJ 1,000 ML IV SCH ×2 (02:10→13:45)
[2017-02-22] MEDS ORDERED: hydrALAZINE HCL 25 MG TAB PO ONE (02:15)
[2017-02-22] MEDS: ACETAMINOPHEN 325 MG TAB PO PRN ×3 (02:31→21:29)
[2017-02-22 04:00] VITALS: BP 161/76; PULSE 92; RESP 18; TEMP 98; O2SAT 92
[2017-02-22] MEDS: CHLORHEXIDINE GLUCONATE 2 % 1 PACK (2 CLOTHS) TOP SCH (04:00)
[2017-02-22] MEDS: hydrALAZINE HCL 50 MG TAB PO SCH ×4 (07:00→21:29)
[2017-02-22 07:46] LABS: BICARBONATE 26.5 MEQ/L (21.0-32.0); POTASSIUM 3.4 MEQ/L (3.5-5.1)
[2017-02-22 08:29] VITALS: BP 155/70; PULSE 90; RESP 20; TEMP 98.8; O2SAT 97
[2017-02-22] MEDS: DOCUSATE SODIUM 100 MG CAP PO SCH ×2 (08:32→21:29)
[2017-02-22] MEDS: SODIUM CHLORIDE 0.9% FLUSH 10 ML FLUSH IV FLUSH SCH ×2 (08:32→21:30)
[2017-02-22] MEDS: PANTOPRAZOLE SOD 40 MG DELAYED RELEASE TAB PO SCH (08:33)
[2017-02-22] MEDS: CETIRIZINE HCL 10 MG TAB PO SCH (08:33)
[2017-02-22] MEDS: METOPROLOL SUCCINATE 50 MG EXTENDED RELEASE TAB PO SCH (08:33)
[2017-02-22] MEDS: LOSARTAN 50 MG TAB PO SCH (08:33)
[2017-02-22] MEDS: amLODIPine BESYLATE 5 MG TAB PO SCH (08:33)
[2017-02-22] MEDS: TAMSULOSIN HCL 0.4 MG CAP PO SCH (08:33)
[2017-02-22] MEDS: NEOMYCIN/POLYMYX/DEXAMETH OPHT SUSP 5 ML BTL EACH EYE SCH ×2 (08:34→21:29)
[2017-02-22] MEDS ORDERED: POTASSIUM CHLORIDE 25 MEQ EFFERVESCENT TAB PO ONE (11:00)
--- NOTE | 2017-02-22 11:41 | HHI.NSPN ---
(Erick WhittWatson KOHLER) Note Status Status: Progress Note (Erick Whitt) Interval History Interval History 02/12: 86 year old transferred from [place] after HCT showed subarachnoid hemorrhage within the perimesencephalic cisterns. No evidence of hydrocephalus. Patient slipped and fell backwards over wet floor hitting the back of his head. + Headaches. No LOS and no weakness. +emesis. 02/13: CT angiogram did not revealed any aneurysms or by vascular malformation. Neurologically stable. 02/14: Patient doing well this afternoon when seen. Has a headache that is better after medication. He has no other complaints. Repeat CT brain this morning with improvement. 02/15: Patient continues to do well. He denies any headache today. Transfer orders were written for a regular med/surg floor and he is waiting for a bed assignment. 02/17: Patient states that his headache is about the same as usual for the past few days. His family has been concerned today that the headache is not going away. He apparently also has not been quite as alert today and not been eating very well with some nausea earlier today. He has no complaint of dizziness or vertigo. Presently no nausea. He does not feel confused. 02/18: Patient awake & alert, sitting up in a chair when seen initially this morning. When seen later the patient was back in bed. He stated he was doing good although he did have a frontal headache. Therapy this morning got him up to the chair and then back to bed. 02/19: at bedside reports patient was improving a few days ago but today he is not doing well, he is complaining of increased pressure-like headaches. The pain medication has not been helping. She is requesting an MRI scan of the head. Mr. Yang denies focal weakness, no vomiting no seizures. Last head CT on 02/17 shows stable findings without evidence of hydrocephalus. 02/20: did not tolerate Neurontin, now dc'ed. MRI Brain stable findings. per family, pt doing better this morning. 02/21: Patient is seen as Therapy finishes working with him. Therapy notes that the patient is more unsteady than when he was last seen on 02/18. The patient does feel dizzy when he gets up. He also has a shooting pain to the left side of the face which feels like when he had shingles several years ago. His and daughter are concerned because he is hallucinating. They think he might be on to much medication, especially blood pressure meds since his pressure was high a few days ago. They do not want him to go to rehab until the medication issue is resolved. It was recommended by this practitioner to discuss their concerns with Dr Pandey who is the Attending Hospitalist at this time. 02/22: Patient is awake & alert, still with a headache this morning. He did go for a CTA brain yesterday but the IV blew and he came back to the room. His reported that he was hallucinating all night and did not sleep any. ( Erick Whitt) Labs, Micro, & Vital Signs Results Allergies Coded Allergies Type Severity Reaction Last Updated Verified Codeine Adverse Reaction Intermediate NAUSEA AND VOMITING 02/12/17 Yes /// 06:00 18:00 06:00 18:00 06:00 18:00 Intake Total 480 ml 240 ml Balance 480 ml 240 ml Intake Oral 480 ml 240 ml # Voids 4 3 6 5 # Bowel Movements 0 1 Laboratory Tests Test 02/20/17 02/21/17 02/21/17 02/22/17 06:50 06:55 18:05 06:28 White Blood Count 7.2 TH/MM3 Red Blood Count 4.35 MIL/MM3 Hemoglobin 12.7 GM/DL Hematocrit 37.0 % Mean Corpuscular Volume 84.9 FL Mean Corpuscular Hemoglobin 29.1 PG Mean Corpuscular Hemoglobin 34.2 % Concent Red Cell Distribution Width 13.2 % Platelet Count 249 TH/MM3 Mean Platelet Volume 7.5 FL Neutrophils (%) (Auto) 67.8 % Lymphocytes (%) (Auto) 16.6 % Monocytes (%) (Auto) 9.1 % Eosinophils (%) (Auto) 5.6 % Basophils (%) (Auto) 0.9 % Neutrophils # (Auto) 4.9 TH/MM3 Lymphocytes # (Auto) 1.2 TH/MM3 Monocytes # (Auto) 0.7 TH/MM3 Eosinophils # (Auto) 0.4 TH/MM3 Basophils # (Auto) 0.1 TH/MM3 CBC Comment DIFF FINAL Differential Comment Sodium Level 130 MEQ/L 133 MEQ/L 131 MEQ/L 132 MEQ/L Potassium Level 3.5 MEQ/L 3.7 MEQ/L 3.4 MEQ/L Chloride Level 92 MEQ/L 95 MEQ/L 97 MEQ/L Carbon Dioxide Level 28.7 MEQ/L 28.7 MEQ/L 26.5 MEQ/L Anion Gap 9 MEQ/L 9 MEQ/L 9 MEQ/L Blood Urea Nitrogen 23 MG/DL 22 MG/DL 15 MG/DL Creatinine 0.81 MG/DL 0.76 MG/DL 0.61 MG/DL Estimat Glomerular Filtration 90 ML/MIN 97 ML/MIN 125 ML/MIN Rate Random Glucose 117 MG/DL 118 MG/DL 123 MG/DL Calcium Level 8.5 MG/DL 8.5 MG/DL 8.8 MG/DL Constitutional Vital Signs Date Time Temp Pulse Resp B/P Pulse Ox O2 Delivery O2 Flow Rate FiO2 02/22/17 08:29 98.8 90 20 155/70 97 02/22/17 04:06 19 02/22/17 04:00 98.0 92 18 161/76 92 02/22/17 00:00 98.3 94 18 171/53 94 02/21/17 23:22 21 02/21/17 21:52 98.4 91 20 190/80 91 02/21/17 19:05 94 21 02/21/17 17:09 95.3 85 18 156/69 94 02/21/17 13:02 96.8 75 20 131/72 93 02/22/17 07:00 Intake Total 240 ml Balance 240 ml (Erick Whitt) Review of Systems/Exam ROS Constitutional: He denies any fevers or chills. Neuro: He has a slight headache and will have ethan dizziness when he gets up. He denies any numbness or tingling. Resp: He denies any shortness of breath or productive cough. Cardiac: He denies any chest pain, palpitations or irregular heart beat. GI: His states he is not eating or drinking much. He denies any abdominal pain, nausea, vomiting or bowel incontinence. : He denies any bladder incontinence. Extremities: He denies any pain or weakness. Psych: His states he was hallucinating during the night again. Exam General: NAD. HEENT: Normocephalic, NTTP. Resp: CTAB w/o W/R/R, equal excursion, non-laboured, on RA. CV: S1S2 w/RRR w/o M/G/R. GI: Abdomen, soft, nontender, positive bowel sounds. Extremities: FERGUSON. Extremities normal w/o any evident deformity or discolouration. Neuro: AAOx3. Speech clear & appropriate although slightly slow in responding. Follows simple commands. Sensation grossly intact to light touch to all extremities. Motor strength 5/5 to all major flexion & extension muscle groups to extremities. (Erick Whitt) Medications Current Medications Current Medications Medications (Trade) Dose Ordered Sig/Abel Route Start Time Stop Time Status Last Admin (NS Flush) 2 ml BID IV FLUSH 02/13/17 09:00 02/21/17 20:56 (NS Flush) 2 ml UNSCH PRN IVF 02/12/17 21:15 (ZyrTEC) 10 mg DAILY PO 02/13/17 09:00 02/22/17 08:33 (Flomax) 0.4 mg DAILY PO 02/13/17 09:00 02/22/17 08:33 (Protonix) 40 mg DAILY PO 02/13/17 09:00 02/22/17 08:33 (Pill Splitter) 1 ea UNSCH PRN OTHER 02/12/17 22:15 (Tylenol) 650 mg Q6H PRN PO 02/12/17 22:15 02/22/17 02:31 (Zofran Inj) 4 mg Q6H PRN IV 02/12/17 22:15 02/18/17 14:54 (Colace) 100 mg BID PO 02/13/17 09:00 02/22/17 08:32 (Senokot) 17.2 mg Q12H PRN PO 02/12/17 22:15 02/20/17 08:25 Miscellaneous Information 1 Q361D XX 02/12/17 22:15 (Chlorhexidine 2% Cloth) Taper DAILY@04 TOP 02/13/17 04:00 02/09/18 03:59 02/15/17 04:00 (Chlorhexidine 2% Cloth) 3 pack UNSCH PRN TOP 02/12/17 22:15 (Apresoline Inj) 20 mg Q4H PRN IV PUSH 02/14/17 17:00 02/16/17 17:25 (Trandate Inj) 20 mg Q4H PRN IV PUSH 02/14/17 17:00 (Norvasc) 10 mg DAILY PO 02/16/17 09:00 02/22/17 08:33 (Toprol Xl) 75 mg DAILY PO 02/17/17 09:00 02/22/17 08:33 ([place] 5-325 Mg) 1 tab Q6H PRN PO 02/18/17 15:00 02/20/17 05:36 (Maxitrol Opht Susp) 1 drop BID EACH EYE 02/18/17 21:00 03/20/17 09:01 02/22/17 08:34 Losartan Potassium 100 mg 100 mg DAILY PO 02/20/17 09:00 02/22/17 08:33 (NS 1000 ml Inj) 1,000 ml @ 84 mls/hr [id number] IV 02/21/17 14:15 02/21/17 14:15 (Apresoline) 50 mg Q8HR PO 02/22/17 06:00 02/22/17 07:00 (Erick Whitt) Medical Decision Making MDM Remarks Traumatic subarachnoid hemorrhage, continued maturation on repeat CT brain 02/17 & MRI . Neurologically intact, some dizziness with getting up At risk for hydrocephalus and vasospasm Hyponatremia Family reports hallucinating (Erick Whitt) Plan Plan Remarks Discussed plan of care with patient & family, questions answered. No indication for neurosurgical intervention. Continue to correct sodium with 2% saline at 20 mL/hr. Continue neuro checks. Repeat CT brain stat for any decrease in neuro status. Mobilise patient w/assistance. PT & OT tx. Encourage patient to eat all meals. CTA brain/head ordered. Recommend patient go to inpatient rehab (Erick Whitt) Attending Statement I have personally seen and examined the patient on the date of this note. Pertinent documentation and study results have been reviewed by the undersigned. I have personally developed the treatment plan and performed medical decision making. Agree with findings, exam, and treatment plan as noted above. Findings discussed with the patient and family. He is a little more confused last night and this morning but remains awake and alert. CT angiogram head and neck unremarkable. Sodium remains slow. Appears to have mild encephalopathy-exact etiology undetermined. May have been triggered by traumatic subarachnoid hemorrhage. Continue therapy. Patient is cleared for discharge to inpatient rehabilitation from a neurosurgery standpoint (Jose Carlos Goode MD) Erick Whitt February 22, 2017 11:41 Jose Carlos Goode MD February 22, 2017 18:05
[2017-02-22 12:08] VITALS: BP 178/78; PULSE 90; RESP 20; TEMP 99.7; O2SAT 93
[2017-02-22] MEDS ORDERED: IOHEXOL 350 MG/ML 10 ML VIAL (for RAD DIAG) IV ONE (13:46)
--- NOTE | 2017-02-22 13:52 | HHI.PR ---
Subjective Remarks Follow up hallucinations. Patient seen and examined today, family at bedside. Patient alert, awake and oriented. Does complain of current headache above bilateral eyebrows. Neurosurgery following, CT head ordered. Denies any current hallucinations. Denies any nausea, vomiting, shortness of breath, chest pain or fever. Objective Vitals Vital Signs Date Time Temp Pulse Resp B/P Pulse Ox O2 Delivery O2 Flow Rate FiO2 02/22/17 12:08 99.7 90 20 178/78 93 02/22/17 08:29 98.8 90 20 155/70 97 02/22/17 04:06 19 02/22/17 04:00 98.0 92 18 161/76 92 02/22/17 00:00 98.3 94 18 171/53 94 02/21/17 23:22 21 02/21/17 21:52 98.4 91 20 190/80 91 02/21/17 19:05 94 21 02/21/17 17:09 95.3 85 18 156/69 94 I/O 02/21/17 02/21/17 02/21/17 02/22/17 02/22/17 02/22/17 07:00 15:00 23:00 07:00 15:00 23:00 Intake Total 240 ml Balance 240 ml Intake Oral 240 ml # Voids 6 5 # Bowel Movements 1 Result Diagram: 02/20/17 0650 02/22/17 0628 Imaging Last Impressions Brain MRI 02/19/17 0000 Signed Impressions: Service Date/Time: Sunday, February 19, 2017 13:12 - CONCLUSION: 1. Mild residual subarachnoid hemorrhage along the base of the brain. 2. Atrophy and findings characteristic of chronic small vessel ischemic change. 3. No acute hemorrhage or mass effect. Michael Ely MD Head CT 02/17/17 1625 Signed Impressions: Service Date/Time: February 17:00 - CONCLUSION: Continued maturation of the subarachnoid hemorrhage. No hydrocephaly or new hemorrhage seen. Dony Knight Jr., MD Head CTA 02/12/17 0000 Signed Impressions: Service Date/Time: Sunday, February 12, 2017 22:11 - CONCLUSION: Unremarkable study and the cause of the patient's subarachnoid hemorrhage is not identified. Apolinar Paniagua MD Chest X-Ray 02/12/17 0000 Signed Impressions: Service Date/Time: Sunday, February 12, 2017 21:51 - CONCLUSION: No acute cardiopulmonary disease. Apolinar Paniagua MD Objective Remarks GENERAL: Well-nourished, well-developed patient in NAD. Awake, alert and oriented. SKIN: Warm and dry. No rash. HEENT: Normocephalic. Atraumatic. Pupils equal and round. No scleral icterus. No injection or drainage. No nasal bleeding or discharge. Mucous membranes pink and moist. Neck supple. Trachea midline. CARDIOVASCULAR: Regular rate and rhythm. S1, S2 noted. No murmur appreciated. RESPIRATORY: No accessory muscle use. Clear to auscultation. Breath sounds equal bilaterally. GASTROINTESTINAL: Abdomen soft, non-tender, nondistended. Normoactive bowel sounds x4. MUSCULOSKELETAL: No obvious deformities. Extremities without clubbing, cyanosis , or edema. NEUROLOGICAL: Awake and alert. No obvious cranial nerve deficits. Motor grossly within normal limits. 4/5 muscle strength in bilateral upper and lower extremities. Normal speech. PSYCHIATRIC: Appropriate mood and affect. Urinary Catheter: No Vascular Central Line Catheter: No A/P Assessment and Plan Mr. Yang is an 86 year old transferred with a known history of hypertension, dyslipidemia, CAD with stent placement who was transferred from [place] after presenting to ED and CT revealed subarachnoid hemorrhage within the perimesencephalic cisterns after slipping and falling by his pool. Traumatic Subarachnoid hemorrhage after fall - Frequent neuro checks - Tight blood pressure control - Appears to be improving on repeat head CT 02/17, with a repeat CT scan one week from now. Repeat MRI on 02/19/17 reviewed, showing stable traumatic subarachnoid hemorrhage. Neurology following, since patient experiencing continued headaches, repeat CT ordered for today. Supposedly IV blew in CT, vascular ultrasound consulted for another IV placement, patient a hard stick. Hallucinations/acute delirium - Worsening overnight. Likely drug induced, stop Celexa, stop Neurontin. Stop clonidine. Monitor. - Could also be postconcussion syndrome. CT head ordered and pending. Mild dehydration: Likely secondary to poor PO intake. Continue normal saline. GFR improved today 02/22, 15. BMP in am. Monitor PO intake. Encourage PO intake as tolerated. Hypokalemia: K 3.4 today 02/22. Replace Potassium KCL 25 meq PO x 1. Recheck in am. 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 Stop Neurontin. Somnolence, Resolved. Hypernatremia: Sodium stable at 132, status post hypertonic saline. Recheck BMP tomorrow. Hypertension: Need SBP<140 before DC. Continue losartan, Norvasc, metoprolol. Blood pressure still elevated, increase hydralazine. Encourage use of PRN BP meds as ordered for tight control. CAD s/p stent: Hold aspirin. Continue beta lizette. History of BPH: Continue tamsulosin History of allergies: Continue Zyrtec. History of depression: Celexa possibly causing hallucinations, hold for now. Monitor. DVT Prophylaxis. SCDs. Hold anticoagulation due to subarachnoid hemorrhage. Discussed with patient and family. Betty Pryor February 22, 2017 13:52 Discussed with patient and family. Betty Pryor February 22, 2017 13:52
[2017-02-22] MEDS ORDERED: ENALAPRILAT 1.25 MG/ML VIAL IV PUSH PRN (14:15)
--- NOTE | 2017-02-22 15:32 | RADRPT ---
EXAM DATE/TIME: 02/22/2017 13:17 [facility] COMPARISON: CTA BRAIN W 3D RECON, February 12, 2017, 22:11. INDICATIONS : Rule out Aneurysm. IV CONTRAST: 72 cc Omnipaque 350 (iohexol) IV ; Cumulative dose for multiple exams. RADIATION DOSE: 16.92 CTDIvol (mGy) ; Combined studies MEDICAL HISTORY : Cardiovascular disease. Hypertension. skin, chest and back CA SURGICAL HISTORY : Appendectomy. ENCOUNTER: Subsequent ACUITY: 1 day PAIN SCALE: 2/10 LOCATION: CTA brain TECHNIQUE: Volumetric scanning was performed using a multi-row detector CT scanner. The data was post processed with a variety of visualization algorithms including full volume maximum intensity projection, multi -planar sliding thin slab reformation, curved planar reformation, and surface rendering techniques. Using automated exposure control and adjustment of the mA and/or kV according to patient size, radiat ion dose was kept as low as reasonably achievable to obtain optimal diagnostic quality images. FINDINGS: There is excellent visualization of the major intracranial arteries out to the second-order branch ve ssels. There is no evidence for aneurysm, vessel truncation or stenosis, and no evidence for vascula r malformation. CONCLUSION: Brain CTA within normal limits. Mirza Viera MD on February 22, 2017 at 15:28 Board Certified Radiologist. This report was verified electronically.
--- NOTE | 2017-02-22 15:51 | OTSOAPIP ---
TIME SESSION COMPLETED: 1535 TREATMENT TIME: 0 MINS. RECEIVED NEW OCCUPATIONAL THERAPY ORDERS FROM DR. QUINTERO. ATTEMPTED TO SEE PATIENT X 2 THIS DATE. ON FIRST ATTEMPT, PATIENT OFF FLOOR FOR HEAD CT. ON SECOND ATTEMPT, PATIENT AND DAUGHTER POLITELY DECLINE REPORTING THE PAST TWO DAYS HAVE BEEN TOO EVENTFUL AND REQUEST TO DEFER UNTIL TOMORROW TO ALLOW PATIENT TO REST. WILL PLAN TO REATTEMPT TOMORROW. INTERDISCIPLINARY COMMUNICATION: REVIEWED ELECTRONIC MEDICAL RECORD, SPOKE WITH RN Therapist: Tanja Yeager OTR/L Signature on file
[2017-02-22 16:11] VITALS: BP 140/64; PULSE 85; RESP 20; TEMP 97.6; O2SAT 93
--- NOTE | 2017-02-22 16:44 | RADRPT ---
EXAM DATE/TIME: 02/22/2017 13:17 [facility] COMPARISON: No previous studies available for comparison. INDICATIONS : Rule out Aneurysm. IV CONTRAST: 72 cc Omnipaque 350 (iohexol) IV ; Cumulative dose for multiple exams. RADIATION DOSE: 16.92 CTDIvol (mGy) ; Combined studies MEDICAL HISTORY : Cardiovascular disease. Hypertension. SURGICAL HISTORY : Appendectomy. Skin, chest and back CA ENCOUNTER: Subsequent ACUITY: 1 day PAIN SCALE: 2/10 LOCATION: CTA carotids Elevated flow velocities and ICA/CCA ratios have been found to correlate with increased degrees of vessel stenosis, calculated as percentage of diameter relative to a normal segment of distal ICA/CCA. TECHNIQUE: Volumetric scanning was performed using a multirow detector CT scanner. The data was post processed with a variety of visualization algorithms including full-volume maximum intensity projection, multip lanar sliding thin-slab reformation, curved-planar reformation, and surface-rendering techniques. Us ing automated exposure control and adjustment of the mA and/or kV according to patient size, radiatio n dose was kept as low as reasonably achievable to obtain optimal diagnostic quality images. FINDINGS: AORTIC ARCH: There is a three-vessel origin of the great vessels from the aorta. No evidence of ostial narrowing. RIGHT CAROTID: Significant calcified plaque is identified in the right carotid bifurcation extending into the origin of the internal carotid artery. There is mild to moderate stenosis at the origin of the internal car otid artery which is in the 30-49% range. There are no high-grade stenotic lesions. The common and ex ternal carotid arteries are widely patent. LEFT CAROTID: Mild to moderate calcified plaque is identified in the left carotid bifurcation extending into the pr oximal internal carotid artery. There is evidence of mild stenosis in the 0-30% range. VERTEBRALS: The vertebral arteries have a symmetric diameter. No stenotic lesions are seen. CONCLUSION: Bilateral calcified carotid plaques with evidence of mild to moderate stenosis of the right ICA and m ild stenosis of the left ICA. No evidence of hemodynamically significant stenosis. Patent vertebral arteries without evidence of proximal stenosis. Michael Hernandez MD on February 22, 2017 at 16:35 Board Certified Radiologist. This report was verified electronically.
[2017-02-22 20:00] VITALS: BP 137/62; PULSE 89; RESP 21; TEMP 97.1; O2SAT 94
[2017-02-23] VITALS (7 sets, daily range): BP systolic 121–161; BP diastolic 54–68; PULSE 75–92; RESP 18–20; TEMP 96.6–98.2; O2SAT 93–97
[2017-02-23] MEDS: SODIUM CHLOR 0.9% 1000 ML INJ 1,000 ML IV SCH ×2 (01:29→11:15)
[2017-02-23] MEDS: CHLORHEXIDINE GLUCONATE 2 % 1 PACK (2 CLOTHS) TOP SCH (04:00)
[2017-02-23] MEDS: ACETAMINOPHEN 325 MG TAB PO PRN ×2 (06:02→21:11)
[2017-02-23] MEDS: hydrALAZINE HCL 50 MG TAB PO SCH ×3 (06:03→21:07)
[2017-02-23] MEDS: LOSARTAN 50 MG TAB PO SCH (08:05)
[2017-02-23] MEDS: METOPROLOL SUCCINATE 50 MG EXTENDED RELEASE TAB PO SCH (08:05)
[2017-02-23] MEDS: CETIRIZINE HCL 10 MG TAB PO SCH (08:05)
[2017-02-23] MEDS: DOCUSATE SODIUM 100 MG CAP PO SCH ×2 (08:05→21:07)
[2017-02-23] MEDS: TAMSULOSIN HCL 0.4 MG CAP PO SCH (08:05)
[2017-02-23] MEDS: PANTOPRAZOLE SOD 40 MG DELAYED RELEASE TAB PO SCH (08:05)
[2017-02-23] MEDS: amLODIPine BESYLATE 5 MG TAB PO SCH (08:05)
[2017-02-23] MEDS: NEOMYCIN/POLYMYX/DEXAMETH OPHT SUSP 5 ML BTL EACH EYE SCH ×2 (08:11→21:11)
[2017-02-23] MEDS: SODIUM CHLORIDE 0.9% FLUSH 10 ML FLUSH IV FLUSH SCH ×2 (08:11→21:11)
[2017-02-23 08:22] LABS: AUTOMATED NEUTROPHIL # 5.5 TH/MM3 (1.8-7.7); BASOPHIL # 0.1 TH/MM3 (0-0.2); BASOPHIL % 1.4 % (0.0-2.0); EOSINOPHIL # 0.1 TH/MM3 (0-0.4); EOSINOPHIL % 1.5 % (0.0-4.0); HEMATOCRIT 35.4 % (39.0-51.0); HEMO FLAGS DIFF FINAL; LYMPH % 14.3 % (9.0-44.0); LYMPHOCYTE # 1.1 TH/MM3 (1.0-4.8); MEAN CELL VOLUME 85.4 FL (80.0-100.0); MEAN CORPUSCULAR HEMOGLOBIN 28.6 PG (27.0-34.0); MEAN CORPUSCULAR HGB CONC 33.5 % (32.0-36.0); MONO % 7.6 % (0.0-8.0); NEUT % 75.2 % (16.0-70.0); PLATELET COUNT 301 TH/MM3 (150-450); RED BLOOD COUNT 4.14 MIL/MM3 (4.50-5.90); RED CELL DISTRIBUTION WIDTH 13.5 % (11.6-17.2); WHITE BLOOD COUNT 7.4 TH/MM3 (4.0-11.0)
[2017-02-23 08:53] LABS: BICARBONATE 23.6 MEQ/L (21.0-32.0); POTASSIUM 3.4 MEQ/L (3.5-5.1)
[2017-02-23] MEDS ORDERED: POTASSIUM CHLORIDE 25 MEQ EFFERVESCENT TAB PO ONE (09:30)
--- NOTE | 2017-02-23 10:29 | HHI.PR ---
Subjective Remarks Follow up hallucinations. Patient seen and examined by myself and Dr. Vanegas. Patient awake, alert, oriented, sitting up in chair comfortably, family at bedside. Hallucinations improved, patient rested well overnight. Headache resolved. Patient has been eating a more, family bringing in supplemental protein shakes which the patient likes and tolerates. Denies any recent fever, chills, cough, headache, shortness of breath or chest pain. Objective Vitals Vital Signs Date Time Temp Pulse Resp B/P Pulse Ox O2 Delivery O2 Flow Rate FiO2 02/23/17 08:59 96.8 85 19 141/63 94 02/23/17 08:44 95 21 02/23/17 06:11 96.6 92 20 161/68 93 02/23/17 00:00 97.0 79 20 153/59 94 02/22/17 22:31 18 02/22/17 20:00 97.1 89 21 137/62 94 02/22/17 16:11 97.6 85 20 140/64 93 02/22/17 12:08 99.7 90 20 178/78 93 I/O 02/22/17 02/22/17 02/22/17 02/23/17 02/23/17 02/23/17 07:00 15:00 23:00 07:00 15:00 23:00 Intake Total 1240 ml 940 ml Output Total 300 ml 125 ml Balance 940 ml 815 ml Intake Oral 240 ml IV Total 1000 ml 940 ml Output Urine Total 300 ml 125 ml # Voids 5 # Bowel Movements 1 0 0 Result Diagram: 02/23/17 0727 02/23/17 0727 Imaging Last Impressions Neck CTA 02/22/17 0851 Signed Impressions: Service Date/Time: Wednesday, February 22, 2017 13:17 - CONCLUSION: Bilateral calcified carotid plaques with evidence of mild to moderate stenosis of the right ICA and mild stenosis of the left ICA. No evidence of hemodynamically significant stenosis. Patent vertebral arteries without evidence of proximal stenosis. Michael Hernandez MD Head CTA 02/21/17 0000 Signed Impressions: Service Date/Time: Wednesday, February 22, 2017 13:17 - CONCLUSION: Brain CTA within normal limits. Mirza Viera MD Brain MRI 02/19/17 0000 Signed Impressions: Service Date/Time: Sunday, February 19, 2017 13:12 - CONCLUSION: 1. Mild residual subarachnoid hemorrhage along the base of the brain. 2. Atrophy and findings characteristic of chronic small vessel ischemic change. 3. No acute hemorrhage or mass effect. Michael Ely MD Head CT 02/17/17 1625 Signed Impressions: Service Date/Time: February 17:00 - CONCLUSION: Continued maturation of the subarachnoid hemorrhage. No hydrocephaly or new hemorrhage seen. Dony Knight Jr., MD Chest X-Ray 02/12/17 0000 Signed Impressions: Service Date/Time: Sunday, February 12, 2017 21:51 - CONCLUSION: No acute cardiopulmonary disease. Apolinar Paniagua MD Objective Remarks GENERAL: Well-nourished, well-developed patient in NAD. Awake, alert and oriented. SKIN: Warm and dry. No rash. HEENT: Normocephalic. Atraumatic. Pupils equal and round. No scleral icterus. No injection or drainage. No nasal bleeding or discharge. Mucous membranes pink and moist. Neck supple. Trachea midline. CARDIOVASCULAR: Regular rate and rhythm. S1, S2 noted. No murmur appreciated. RESPIRATORY: No accessory muscle use. Clear to auscultation. Breath sounds equal bilaterally. GASTROINTESTINAL: Abdomen soft, non-tender, nondistended. Normoactive bowel sounds x4. MUSCULOSKELETAL: No obvious deformities. Extremities without clubbing, cyanosis , or edema. NEUROLOGICAL: Awake and alert. No obvious cranial nerve deficits. Motor grossly within normal limits. 4/5 muscle strength in bilateral upper and lower extremities. Normal speech. PSYCHIATRIC: Appropriate mood and affect. Urinary Catheter: No Vascular Central Line Catheter: No A/P Problem List: (1) Traumatic subarachnoid hemorrhage ICD Code: S06.6X9A Status: Acute (2) Fall ICD Code: W19.XXXA Status: Acute (3) CAD (coronary artery disease) ICD Code: I25.10 Status: Acute Assessment and Plan Mr. Yang is an 86 year old transferred with a known history of hypertension, dyslipidemia, CAD with stent placement who was transferred from [place] after presenting to ED and CT revealed subarachnoid hemorrhage within the perimesencephalic cisterns after slipping and falling by his pool. Traumatic Subarachnoid hemorrhage after fall - Frequent neuro checks - Tight blood pressure control - Appears to be improving on repeat head CT 02/17. Repeat MRI on 02/19/17 reviewed, showing stable traumatic subarachnoid. Repeat Head CTA on 02/22 reviewed by me, brain CTA within normal limits. hemorrhage. Neck CTA on 02/22 reviewed by me, bilateral calcified carotid plaques with evidence of mild to moderate stenosis of the right ICA and mild stenosis of the left ICA. No evidence of hemodynamically significant stenosis. Patent vertebral arteries without evidence of proximal stenosis. Neurology following, since patient experiencing continued headaches, repeat CT ordered for today. Hallucinations/acute delirium - Improved. Likely drug induced, stop Celexa, stop Neurontin. Stop clonidine. Monitor. - Headache improved. - Could also be postconcussion syndrome. CT results reviewed as above. Mild dehydration: PO intake much improved. Continue to encourage increase in PO intake. Continue normal saline. GFR improved, 18 today 02/23. Hypokalemia: status post replacement. K 3.4 today 02/23. Replace Potassium KCL 25 meq PO x 1. Left-sided facial pain with associated headache: Improved. Somnolence, Resolved. Hypernatremia: Sodium stable at 134, status post hypertonic saline. Hypertension: Improved. Need SBP<140 before DC. Continue losartan, Norvasc, metoprolol. Blood pressure still elevated, increase hydralazine. Encourage use of PRN BP meds as ordered for tight control. CAD s/p stent: Hold aspirin. Continue beta lizette. History of BPH: Continue tamsulosin History of allergies: Continue Zyrtec. History of depression: Celexa possibly causing hallucinations, hold for now. Monitor. DVT Prophylaxis. SCDs. Hold anticoagulation due to subarachnoid hemorrhage. Discussed with patient and family. Written by Betty Pryor, acting as scribe for Dr. Vanegas on 02/23/17 at 10: 15. Discharge Planning Plan for discharge to rehab tomorrow. Betty Pryor February 23, 2017 10:29
--- NOTE | 2017-02-23 12:18 | HHI.NSPN ---
(Erick WhittWatson KOHLER) Note Status Status: Progress Note (Erick Whitt) Interval History Interval History 02/12: 86 year old transferred from [place] after HCT showed subarachnoid hemorrhage within the perimesencephalic cisterns. No evidence of hydrocephalus. Patient slipped and fell backwards over wet floor hitting the back of his head. + Headaches. No LOS and no weakness. +emesis. 02/13: CT angiogram did not revealed any aneurysms or by vascular malformation. Neurologically stable. 02/14: Patient doing well this afternoon when seen. Has a headache that is better after medication. He has no other complaints. Repeat CT brain this morning with improvement. 02/15: Patient continues to do well. He denies any headache today. Transfer orders were written for a regular med/surg floor and he is waiting for a bed assignment. 02/17: Patient states that his headache is about the same as usual for the past few days. His family has been concerned today that the headache is not going away. He apparently also has not been quite as alert today and not been eating very well with some nausea earlier today. He has no complaint of dizziness or vertigo. Presently no nausea. He does not feel confused. 02/18: Patient awake & alert, sitting up in a chair when seen initially this morning. When seen later the patient was back in bed. He stated he was doing good although he did have a frontal headache. Therapy this morning got him up to the chair and then back to bed. 02/19: at bedside reports patient was improving a few days ago but today he is not doing well, he is complaining of increased pressure-like headaches. The pain medication has not been helping. She is requesting an MRI scan of the head. Mr. Yang denies focal weakness, no vomiting no seizures. Last head CT on 02/17 shows stable findings without evidence of hydrocephalus. 02/20: did not tolerate Neurontin, now dc'ed. MRI Brain stable findings. per family, pt doing better this morning. 02/21: Patient is seen as Therapy finishes working with him. Therapy notes that the patient is more unsteady than when he was last seen on 02/18. The patient does feel dizzy when he gets up. He also has a shooting pain to the left side of the face which feels like when he had shingles several years ago. His and daughter are concerned because he is hallucinating. They think he might be on to much medication, especially blood pressure meds since his pressure was high a few days ago. They do not want him to go to rehab until the medication issue is resolved. It was recommended by this practitioner to discuss their concerns with Dr Pandey who is the Attending Hospitalist at this time. 02/22: Patient is awake & alert, still with a headache this morning. He did go for a CTA brain yesterday but the IV blew and he came back to the room. His reported that he was hallucinating all night and did not sleep any. 02/23: Patient is awake & alert and has no complaints when seen this afternoon. He went for the CTA brain yesterday which was unremarkable but the CTA neck did demonstrated mild to moderate carotid stenosis. His reports that the patient has done much better since yesterday afternoon. He slept through the night and ate some breakfast. He also walked the hallway with Therapy according to the . (Erick Whitt) Labs, Micro, & Vital Signs Results Allergies Coded Allergies Type Severity Reaction Last Updated Verified Codeine Adverse Reaction Intermediate NAUSEA AND VOMITING 02/12/17 Yes Recent Impressions Neck CTA 02/22/17 0851 Signed Impressions: Service Date/Time: Wednesday, February 22, 2017 13:17 - CONCLUSION: Bilateral calcified carotid plaques with evidence of mild to moderate stenosis of the right ICA and mild stenosis of the left ICA. No evidence of hemodynamically significant stenosis. Patent vertebral arteries without evidence of proximal stenosis. Michael Hernandez MD Head CTA 02/21/17 0000 Signed Impressions: Service Date/Time: Wednesday, February 22, 2017 13:17 - CONCLUSION: Brain CTA within normal limits. Mirza Viera MD / 06:00 18:00 06:00 18:00 06:00 18:00 Intake Total 240 ml 2180 ml Output Total 400 ml 150 ml 150 ml 125 ml Balance -160 ml -150 ml 2030 ml -125 ml Intake Oral 240 ml 240 ml IV Total 1940 ml Output Urine Total 400 ml 150 ml 150 ml 125 ml # Voids 6 1 5 # Bowel Movements 1 1 0 0 Laboratory Tests Test 02/21/17 02/21/17 02/22/17 02/23/17 06:55 18:05 06:28 07:27 Sodium Level 133 MEQ/L 131 MEQ/L 132 MEQ/L 134 MEQ/L Potassium Level 3.7 MEQ/L 3.4 MEQ/L 3.4 MEQ/L Chloride Level 95 MEQ/L 97 MEQ/L 99 MEQ/L Carbon Dioxide Level 28.7 MEQ/L 26.5 MEQ/L 23.6 MEQ/L Anion Gap 9 MEQ/L 9 MEQ/L 11 MEQ/L Blood Urea Nitrogen 22 MG/DL 15 MG/DL 18 MG/DL Creatinine 0.76 MG/DL 0.61 MG/DL 0.68 MG/DL Estimat Glomerular Filtration 97 ML/MIN 125 ML/MIN 110 ML/MIN Rate Random Glucose 118 MG/DL 123 MG/DL 116 MG/DL Calcium Level 8.5 MG/DL 8.8 MG/DL 8.4 MG/DL White Blood Count 7.4 TH/MM3 Red Blood Count 4.14 MIL/MM3 Hemoglobin 11.8 GM/DL Hematocrit 35.4 % Mean Corpuscular Volume 85.4 FL Mean Corpuscular Hemoglobin 28.6 PG Mean Corpuscular Hemoglobin 33.5 % Concent Red Cell Distribution Width 13.5 % Platelet Count 301 TH/MM3 Mean Platelet Volume 7.6 FL Neutrophils (%) (Auto) 75.2 % Lymphocytes (%) (Auto) 14.3 % Monocytes (%) (Auto) 7.6 % Eosinophils (%) (Auto) 1.5 % Basophils (%) (Auto) 1.4 % Neutrophils # (Auto) 5.5 TH/MM3 Lymphocytes # (Auto) 1.1 TH/MM3 Monocytes # (Auto) 0.6 TH/MM3 Eosinophils # (Auto) 0.1 TH/MM3 Basophils # (Auto) 0.1 TH/MM3 CBC Comment DIFF FINAL Differential Comment Constitutional Vital Signs Date Time Temp Pulse Resp B/P Pulse Ox O2 Delivery O2 Flow Rate FiO2 02/23/17 08:59 96.8 85 19 141/63 94 02/23/17 08:44 95 21 02/23/17 06:11 96.6 92 20 161/68 93 02/23/17 00:00 97.0 79 20 153/59 94 02/22/17 22:31 18 02/22/17 20:00 97.1 89 21 137/62 94 02/22/17 16:11 97.6 85 20 140/64 93 02/23/17 07:00 Intake Total 2180 ml Output Total 425 ml Balance 1755 ml (Erick Whitt) Review of Systems/Exam ROS Constitutional: He denies any fevers or chills. Neuro: He denies any headache, dizziness, numbness or tingling. Resp: He denies any shortness of breath or productive cough. Cardiac: He denies any chest pain, palpitations or irregular heart beat. GI: His reports that he ate a good breakfast. He denies any abdominal pain , nausea, vomiting or bowel incontinence. : He denies any bladder incontinence. Extremities: He denies any pain or weakness. Psych: His reports that the patient was able to sleep through the night and did not have any hallucinations. Exam General: NAD. HEENT: Normocephalic, NTTP. Resp: CTAB w/o W/R/R, equal excursion, non-laboured, on RA. CV: S1S2 w/RRR w/o M/G/R. GI: Abdomen, soft, nontender, positive bowel sounds. Extremities: FERGUSON. Extremities normal w/o any evident deformity or discolouration. Neuro: AAOx3. Speech clear & appropriate although slightly slow in responding. Follows simple commands. Sensation grossly intact to light touch to all extremities. Motor strength 5/5 to all major flexion & extension muscle groups to extremities. (Erick Whitt) Medications Current Medications Current Medications Medications (Trade) Dose Ordered Sig/Abel Route Start Time Stop Time Status Last Admin (NS Flush) 2 ml BID IV FLUSH 02/13/17 09:00 02/23/17 08:11 (NS Flush) 2 ml UNSCH PRN IVF 02/12/17 21:15 (ZyrTEC) 10 mg DAILY PO 02/13/17 09:00 02/23/17 08:05 (Flomax) 0.4 mg DAILY PO 02/13/17 09:00 02/23/17 08:05 (Protonix) 40 mg DAILY PO 02/13/17 09:00 02/23/17 08:05 (Pill Splitter) 1 ea UNSCH PRN OTHER 02/12/17 22:15 (Tylenol) 650 mg Q6H PRN PO 02/12/17 22:15 02/23/17 06:02 (Zofran Inj) 4 mg Q6H PRN IV 02/12/17 22:15 02/18/17 14:54 (Colace) 100 mg BID PO 02/13/17 09:00 02/23/17 08:05 (Senokot) 17.2 mg Q12H PRN PO 02/12/17 22:15 02/20/17 08:25 Miscellaneous Information 1 Q361D XX 02/12/17 22:15 (Chlorhexidine 2% Cloth) Taper DAILY@04 TOP 02/13/17 04:00 02/09/18 03:59 02/15/17 04:00 (Chlorhexidine 2% Cloth) 3 pack UNSCH PRN TOP 02/12/17 22:15 (Norvasc) 10 mg DAILY PO 02/16/17 09:00 02/23/17 08:05 (Toprol Xl) 75 mg DAILY PO 02/17/17 09:00 02/23/17 08:05 ([place] 5-325 Mg) 1 tab Q6H PRN PO 02/18/17 15:00 02/20/17 05:36 (Maxitrol Opht Susp) 1 drop BID EACH EYE 02/18/17 21:00 03/20/17 09:01 02/23/17 08:11 Losartan Potassium 100 mg 100 mg DAILY PO 02/20/17 09:00 02/23/17 08:05 (NS 1000 ml Inj) 1,000 ml @ 84 mls/hr [id number] IV 02/21/17 14:15 02/23/17 01:29 (Apresoline) 75 mg Q8HR PO 02/22/17 14:00 02/23/17 06:03 (Vasotec Inj) 1.25 mg Q6H PRN IV PUSH 02/22/17 14:15 (Erick Whitt) Medical Decision Making MDM Remarks Traumatic subarachnoid hemorrhage, continued maturation on repeat CT brain 2017/ 05/04 & MRI . CTA brain & neck () demonstrates mild to moderate carotid stenosis o/ w unremarkable Neurologically intact At risk for hydrocephalus and vasospasm Hyponatremia, slight interval improvement Family reports no hallucinations overnight A review of his medications did not find any that would directly cause his hallucinations (Erick Whitt) Plan Plan Remarks Discussed plan of care with patient & family, questions answered. No indication for neurosurgical intervention. Recommend correcting sodium with 2% saline at 20 mL/hr for any hyponatremia. Continue neuro checks. Repeat CT brain stat for any decrease in neuro status. Mobilise patient w/assistance. PT & OT tx. Encourage patient to eat all meals. Consider rehab based on how patient does with Therapy (Erick Whitt) Attending Statement I have personally seen and examined the patient on the date of this note. Pertinent documentation and study results have been reviewed by the undersigned. I have personally developed the treatment plan and performed medical decision making. Agree with findings, exam, and treatment plan as noted above. Neurologic exam remains relatively stable. Still with mild confusion. Continued gait deficit No neurosurgical intervention anticipated at this time. Stable for inpatient rehabilitation (Jose Carlos Goode MD) Erick Whitt February 23, 2017 12:18 Jose Carlos Goode MD February 23, 2017 22:08
[2017-02-24] VITALS: BP 133/54; PULSE 83; RESP 21; TEMP 96.7; O2SAT 95
[2017-02-24] MEDS: CHLORHEXIDINE GLUCONATE 2 % 1 PACK (2 CLOTHS) TOP SCH (04:06)
[2017-02-24] MEDS: hydrALAZINE HCL 50 MG TAB PO SCH (05:25)
[2017-02-24] MEDS: SODIUM CHLOR 0.9% 1000 ML INJ 1,000 ML IV SCH (05:26)
[2017-02-24 06:36] VITALS: BP 149/64; PULSE 90; RESP 21; TEMP 96.5; O2SAT 95
--- NOTE | 2017-02-24 07:24 | HHI.FF ---
Face to Face Verification Diagnosis: (1) Subarachnoid bleed Physical Therapy Order: Evaluate and Treat, Improve ambulation, Strength and gait training Occupational Therapy Order: Evaluate and Treat, Improve ADL I have seen patient Hiren Yang on 02/24/17. My clinical findings support the need for the requested home health care services because: Deconditioned w/ increased weakness High risk of falls I certify that my clinical findings support that this patient is homebound because: Impaired cognitive ability/safety Unsteady gait/balance Betty Pryor February 24, 2017 07:24 Ezra Vanegas MD March 01, 2017 10:13
[2017-02-24 07:45] VITALS: BP 153/68; PULSE 75; RESP 18; TEMP 96; O2SAT 96
[2017-02-24] MEDS: amLODIPine BESYLATE 5 MG TAB PO SCH (08:06)
[2017-02-24] MEDS: LOSARTAN 50 MG TAB PO SCH (08:06)
[2017-02-24] MEDS: NEOMYCIN/POLYMYX/DEXAMETH OPHT SUSP 5 ML BTL EACH EYE SCH (08:06)
[2017-02-24] MEDS: TAMSULOSIN HCL 0.4 MG CAP PO SCH (08:06)
[2017-02-24] MEDS: METOPROLOL SUCCINATE 50 MG EXTENDED RELEASE TAB PO SCH (08:06)
[2017-02-24] MEDS: CETIRIZINE HCL 10 MG TAB PO SCH (08:06)
[2017-02-24] MEDS: SODIUM CHLORIDE 0.9% FLUSH 10 ML FLUSH IV FLUSH SCH (08:06)
[2017-02-24] MEDS: PANTOPRAZOLE SOD 40 MG DELAYED RELEASE TAB PO SCH (08:06)
[2017-02-24] MEDS: DOCUSATE SODIUM 100 MG CAP PO SCH (08:06)
[2017-02-24] MEDS ORDERED: HYDR50TA15 PO (09:10)
[2017-02-24] MEDS ORDERED: METO50TA11 PO (09:10)
[2017-02-24] MEDS ORDERED: COZA50TA PO (09:10)
[2017-02-24] MEDS ORDERED: AMLO5 PO (09:17)
--- NOTE | 2017-02-24 09:18 | HHI.DS ---
Discharge Summary Admission Date Feb 12, 2017 at 21:43 Discharge Date: February 24, 2017 Admitting Diagnosis Traumatic SAH (1) Traumatic subarachnoid hemorrhage ICD Code: S06.6X9A Diagnosis: Principal (2) Fall ICD Code: W19.XXXA Diagnosis: Principal (3) CAD (coronary artery disease) ICD Code: I25.10 Diagnosis: Secondary Procedures None Brief History - From Admission 86 y/o man slipped by his pool and fell, hitting his head. To [place] ED where CT revealed traumatic SAH. No LOC but felt stunned briefly. CBC/BMP: 02/23/17 0727 02/23/17 0727 Significant Findings Laboratory Tests Test 02/21/17 02/22/17 02/23/17 18:05 06:28 07:27 Sodium Level 131 MEQ/L 132 MEQ/L 134 MEQ/L (136-145) (136-145) (136-145) Potassium Level 3.4 MEQ/L 3.4 MEQ/L (3.5-5.1) (3.5-5.1) Chloride Level 97 MEQ/L (98-107) Random Glucose 123 MG/DL 116 MG/DL (74-106) (74-106) Red Blood Count 4.14 MIL/MM3 (4.50-5.90) Hemoglobin 11.8 GM/DL (13.0-17.0) Hematocrit 35.4 % (39.0-51.0) Neutrophils (%) (Auto) 75.2 % (16.0-70.0) Calcium Level 8.4 MG/DL (8.5-10.1) PE at Discharge GENERAL: Well-nourished, well-developed patient in NAD. Awake, alert and oriented. SKIN: Warm and dry. No rash. HEENT: Normocephalic. Atraumatic. Pupils equal and round. No scleral icterus. No injection or drainage. No nasal bleeding or discharge. Mucous membranes pink and moist. Neck supple. Trachea midline. CARDIOVASCULAR: Regular rate and rhythm. S1, S2 noted. No murmur appreciated. RESPIRATORY: No accessory muscle use. Clear to auscultation. Breath sounds equal bilaterally. GASTROINTESTINAL: Abdomen soft, non-tender, nondistended. Normoactive bowel sounds x4. MUSCULOSKELETAL: No obvious deformities. Extremities without clubbing, cyanosis , or edema. NEUROLOGICAL: Awake and alert. No obvious cranial nerve deficits. Motor grossly within normal limits. 4/5 muscle strength in bilateral upper and lower extremities. Normal speech. PSYCHIATRIC: Appropriate mood and affect. Transfer Summary 86 y/o man slipped by his pool and fell, hitting his head. To [place] ED where CT revealed traumatic SAH. No LOC but felt stunned briefly. SUBJ 02/13/17: CT head stable. CTA no aneurysm. No focal deficits on neuro exam. 02/14/17: Continues to have stable neuro exam. No evident focal deficits or worsening. Sodium remains at 140 Hospital Course Mr. Yang is an 86 year old transferred with a known history of hypertension, dyslipidemia, CAD with stent placement who was transferred from [place] after presenting to ED and CT revealed subarachnoid hemorrhage within the perimesencephalic cisterns after slipping and falling by his pool. Neurosurgery was consulted. She was started on tight blood pressure control. Serial imaging was done to monitor patient's subarachnoid hemorrhage. Repeat MRI on 02/19/17 showed stable subarachnoid hemorrhage. Neck CTA on 02/22 showed bilateral calcified carotid plaques with evidence of mild to moderate stenosis of the right ICA and mild stenosis of the left ICA. No evidence of hemodynamically significant stenosis. Patent vertebral arteries without evidence of proximal stenosis. Neurology was consulted, since patient experiencing continued. Patient also started having hallucinations and acute delirium which resolved with stopping Celexa and Neurontin which were started by [facility] doctor as outpatient. Headache also improved. This may also be partly secondary to postconcussion syndrome. Patient's mild dehydration improved with oral resuscitation. Patient's blood pressure was initially difficult to control, patient was started on losartan, Norvasc, hydralazine and metoprolol. These were all increased as needed. On the day of discharge, patient was ambulating and blood pressure was more controlled. Patient will then be discharged to home with home healthcare to continue physical therapy. Pt Condition on Discharge: Good Discharge Disposition: Disch w/ Home Health Serv Discharge Time: > 30 minutes Discharge Instructions DIET: Follow Instructions for: Heart Healthy Diet Activities you can perform: Regular-No Restrictions Other Activity Instructions: Use rolling walker for ambulation at home. Follow up Referrals: PCP Follow-up - 1 Week with Ariel Bell MD New Medications: Folding Walker/5" Wheels (Folding Walker/5" Wheels) 1 Mis Mis 1 EA .ROUTE DIRECTED #1 EA Amlodipine (Norvasc) 5 Mg Tab 10 MG PO DAILY HTN #30 TAB Hydralazine (Hydralazine) 50 Mg Tab 75 MG PO Q8HR hypertension #120 TAB Losartan (Cozaar) 50 Mg Tab 100 MG PO DAILY hypertension #60 TAB Metoprolol Succinate ER 24 HR (Metoprolol Succinate ER 24 HR) 50 Mg Tab 75 MG PO DAILY hypertension #60 TAB Continued Medications: B Complex W/ C (Vitamin B Complex-C) 1 Cap Cap 1 CAP PO DAILY Budesonide Nasal [place] (Rhinocort Allergy Nasal [place]) 32 Mcg/Act Susp 2 SPRAY EACH NARE DAILY Allergies #1 Ref 0 BOTTLE Cetirizine (Cetirizine) 10 Mg Tab 10 MG PO DAILY Allergies Ref 0 TAB Cholecalciferol (Vitamin D3) 1,000 Unit Tab 1000 UNITS PO DAILY Nutritional Supplement #1 Ref 0 BOTTLE Ezetimibe-Simvastatin (Vytorin) 10-40 Mg Tab 1 TAB PO HS #30 Ref 0 TAB Finasteride (Finasteride) 5 Mg Tab 5 MG PO DAILY Do not crush. Manage Prostate Problems #30 Ref 0 TAB Omeprazole (Omeprazole) 40 Mg Cap 40 MG PO DAILY #30 Ref 0 CAP Tamsulosin (Tamsulosin) 0.4 Mg Cap 0.4 MG PO DAILY Manage Prostate Problems #30 Ref 0 CAP Discontinued Medications: Aspirin DR (Ecotrin Low Strength) 81 Mg Tabdr 81 MG PO DAILY #30 Ref 0 TAB Citalopram (Citalopram) 10 Mg Tab 10 MG PO HS Control Depression #30 Ref 0 TAB Metoprolol Tartrate (Metoprolol Tartrate) 50 Mg Tab 50 MG PO DAILY #30 Ref 0 TAB Ezra Vanegas MD February 24, 2017 09:18
--- NOTE | 2017-02-24 10:28 | HHI.NSPN ---
(Erick WhittWatson KOHLER) Note Status Status: Progress Note (Erick Whitt) Interval History Interval History 02/12: 86 year old transferred from [place] after HCT showed subarachnoid hemorrhage within the perimesencephalic cisterns. No evidence of hydrocephalus. Patient slipped and fell backwards over wet floor hitting the back of his head. + Headaches. No LOS and no weakness. +emesis. 02/13: CT angiogram did not revealed any aneurysms or by vascular malformation. Neurologically stable. 02/14: Patient doing well this afternoon when seen. Has a headache that is better after medication. He has no other complaints. Repeat CT brain this morning with improvement. 02/15: Patient continues to do well. He denies any headache today. Transfer orders were written for a regular med/surg floor and he is waiting for a bed assignment. 02/17: Patient states that his headache is about the same as usual for the past few days. His family has been concerned today that the headache is not going away. He apparently also has not been quite as alert today and not been eating very well with some nausea earlier today. He has no complaint of dizziness or vertigo. Presently no nausea. He does not feel confused. 02/18: Patient awake & alert, sitting up in a chair when seen initially this morning. When seen later the patient was back in bed. He stated he was doing good although he did have a frontal headache. Therapy this morning got him up to the chair and then back to bed. 02/19: at bedside reports patient was improving a few days ago but today he is not doing well, he is complaining of increased pressure-like headaches. The pain medication has not been helping. She is requesting an MRI scan of the head. Mr. Yang denies focal weakness, no vomiting no seizures. Last head CT on 02/17 shows stable findings without evidence of hydrocephalus. 02/20: did not tolerate Neurontin, now dc'ed. MRI Brain stable findings. per family, pt doing better this morning. 02/21: Patient is seen as Therapy finishes working with him. Therapy notes that the patient is more unsteady than when he was last seen on 02/18. The patient does feel dizzy when he gets up. He also has a shooting pain to the left side of the face which feels like when he had shingles several years ago. His and daughter are concerned because he is hallucinating. They think he might be on to much medication, especially blood pressure meds since his pressure was high a few days ago. They do not want him to go to rehab until the medication issue is resolved. It was recommended by this practitioner to discuss their concerns with Dr Pandey who is the Attending Hospitalist at this time. 02/22: Patient is awake & alert, still with a headache this morning. He did go for a CTA brain yesterday but the IV blew and he came back to the room. His reported that he was hallucinating all night and did not sleep any. 02/23: Patient is awake & alert and has no complaints when seen this afternoon. He went for the CTA brain yesterday which was unremarkable but the CTA neck did demonstrated mild to moderate carotid stenosis. His reports that the patient has done much better since yesterday afternoon. He slept through the night and ate some breakfast. He also walked the hallway with Therapy according to the . 02/24: Patient doing well this morning and had no complaints. He states that he was able to ambulate with a wheeled walker twice around the floor this morning. He and his daughter report he is to be discharged home today. (Erick Whitt) Labs, Micro, & Vital Signs Constitutional Vital Signs Date Time Temp Pulse Resp B/P Pulse Ox O2 Delivery O2 Flow Rate FiO2 02/24/17 07:45 96.0 75 18 153/68 96 02/24/17 06:36 96.5 90 21 149/64 95 02/24/17 00:00 96.7 83 21 133/54 95 02/23/17 20:00 98.2 85 18 147/63 94 02/23/17 17:06 96.7 87 20 121/54 94 02/23/17 12:33 98.2 75 19 130/58 97 02/24/17 07:00 Intake Total 240 ml Output Total 1150 ml Balance -910 ml (Erick Whitt) Review of Systems/Exam ROS Constitutional: He denies any fevers or chills. Neuro: He denies any headache, dizziness, numbness or tingling. Resp: He denies any shortness of breath or productive cough. Cardiac: He denies any chest pain, palpitations or irregular heart beat. GI: He denies any abdominal pain, nausea, vomiting or bowel incontinence. : He denies any bladder incontinence. Extremities: He denies any pain or weakness. Exam General: NAD. HEENT: Normocephalic, NTTP. Resp: CTAB w/o W/R/R, equal excursion, non-laboured, on RA. CV: S1S2 w/RRR w/o M/G/R, radial pulses 2+ bilaterally. GI: Abdomen, soft, nontender, positive bowel sounds. Extremities: FERGUSON. Extremities normal w/o any evident deformity or discolouration. Neuro: AAOx3. Speech clear & appropriate although slightly slow in responding. Follows simple commands. Sensation grossly intact to light touch to all extremities. Motor strength 5/5 to all major flexion & extension muscle groups to extremities. (Erick Whitt) Medications Current Medications Current Medications Medications (Trade) Dose Ordered Sig/Abel Route Start Time Stop Time Status Last Admin (NS Flush) 2 ml BID IV FLUSH 02/13/17 09:00 02/23/17 08:11 (NS Flush) 2 ml UNSCH PRN IVF 02/12/17 21:15 (ZyrTEC) 10 mg DAILY PO 02/13/17 09:00 02/24/17 08:06 (Flomax) 0.4 mg DAILY PO 02/13/17 09:00 02/24/17 08:06 (Protonix) 40 mg DAILY PO 02/13/17 09:00 02/24/17 08:06 (Pill Splitter) 1 ea UNSCH PRN OTHER 02/12/17 22:15 (Tylenol) 650 mg Q6H PRN PO 02/12/17 22:15 02/23/17 21:11 (Zofran Inj) 4 mg Q6H PRN IV 02/12/17 22:15 02/18/17 14:54 (Colace) 100 mg BID PO 02/13/17 09:00 02/24/17 08:06 (Senokot) 17.2 mg Q12H PRN PO 02/12/17 22:15 02/20/17 08:25 Miscellaneous Information 1 Q361D XX 02/12/17 22:15 (Chlorhexidine 2% Cloth) Taper DAILY@04 TOP 02/13/17 04:00 02/09/18 03:59 02/15/17 04:00 (Chlorhexidine 2% Cloth) 3 pack UNSCH PRN TOP 02/12/17 22:15 (Norvasc) 10 mg DAILY PO 02/16/17 09:00 02/24/17 08:06 (Toprol Xl) 75 mg DAILY PO 02/17/17 09:00 02/24/17 08:06 ([place] 5-325 Mg) 1 tab Q6H PRN PO 02/18/17 15:00 02/20/17 05:36 (Maxitrol Opht Susp) 1 drop BID EACH EYE 02/18/17 21:00 03/20/17 09:01 02/24/17 08:06 Losartan Potassium 100 mg 100 mg DAILY PO 02/20/17 09:00 02/24/17 08:06 (NS 1000 ml Inj) 1,000 ml @ 84 mls/hr [id number] IV 02/21/17 14:15 02/24/17 05:26 (Apresoline) 75 mg Q8HR PO 02/22/17 14:00 02/24/17 05:25 (Vasotec Inj) 1.25 mg Q6H PRN IV PUSH 02/22/17 14:15 (Erick Whitt) Medical Decision Making MDM Remarks Traumatic subarachnoid hemorrhage, continued maturation on repeat CT brain 02/17 & MRI . CTA brain & neck () demonstrates mild to moderate carotid stenosis o/ w unremarkable Neurologically intact At risk for hydrocephalus and vasospasm Hyponatremia, slight interval improvement 02/23 No hallucinations reported (Erick Whitt) Plan Plan Remarks Discussed plan of care with patient & family, questions answered. No indication for neurosurgical intervention. Patient okay for discharge from NSGY's perspective. (Erick Whitt) Attending Statement The exam, history, and the medical decision-making described in the above note were completed with the assistance of the mid-level provider. I reviewed and agree with the findings presented. I attest that I had a [id number] encounter with the patient on the same day, and personally performed and documented my assessment and findings in the medical record. D/W patient. My exam as above No NS intervention planned. Stable for D/C (Jose Carlos Goode MD) Erick WhittP February 24, 2017 10:28 Jose Carlos Goode MD Apr 19, 2017 15:50
[2017-02-24 11:45] VITALS: BP 139/66; PULSE 76; RESP 18; TEMP 97.2; O2SAT 97
== END 2017-02-24 12:44 | disposition home health service (06) | DRG 86 ==
LOC: NEPC 20:38 → NEDA 21:43 → N03B 02-13 03:05 → N05A 02-18 17:36
PROVIDERS: ADMIT Hospitalist; ATTEND Hospitalist
DX: S06.6X0A Traumatic subarachnoid hemorrhage without loss of consciousness, initial encounter (principal); E87.1 Hypo-osmolality and hyponatremia; E86.0 Dehydration; I10 Essential (primary) hypertension; E78.5 Hyperlipidemia, unspecified; W01.0XXA Fall on same level from slipping, tripping and stumbling without subsequent striking against object, initial encounter; Y93.01 Activity, walking, marching and hiking; Y92.098 Other place in other non-institutional residence as the place of occurrence of the external cause; Y99.9 Unspecified external cause status; I25.10 Atherosclerotic heart disease of native coronary artery without angina pectoris; Z95.5 Presence of coronary angioplasty implant and graft; Z79.01 Long term (current) use of anticoagulants; F32.9 Major depressive disorder, single episode, unspecified; E78.00 Pure hypercholesterolemia, unspecified; K21.9 Gastro-esophageal reflux disease without esophagitis; Z87.891 Personal history of nicotine dependence; N40.0 Benign prostatic hyperplasia without lower urinary tract symptoms; R44.1 Visual hallucinations; I65.23 Occlusion and stenosis of bilateral carotid arteries; E87.6 Hypokalemia
CPT/HCPCS: 70450; 70496; 70498; 70551; 71010; 76937; 80048; 80053; 80069; 81001; 82533; 82550; 83735; 84100; 84295; 84439; 84443; 84480; 85007; 85025; 85027; 85610; 85730; 93005; 96365; 96374; J0360; J2270; J2405; J7030; J7050; Q9967